=== PATIENT | female | born 1950 | race Asian ===

== ENCOUNTER 2017-08-02 15:20 | Outpatient (RCR) | payer MEDICARE, OTHER ==
[~2017-08-02 15:20] MED LIST: ALLOPURINOL100 MG PO; AMARYL PO; ASPIR-LOW81 MG PO; B-121000 MCG PO; CALCIUM CARBON500 M1 PO; CALCIUM PO; FARXIGA5 PO; FORTAMET1000 MG PO; FOSAMAX PO; GLIMEPRIDE PO; GLUCOPHAGE1000 MG PO; GLUCOTROL 5M5 MG/TAB PO; LEGATRIN PM PO; LIPITOR 40MG TA40 MG PO; LISINOPRIL5 MG PO; NABUMETONE750 MG PO; NEURONTIN100 MG/CAP PO; OMEGA-3 FISH1000 MG PO; OSCAL 500 TAB500 MG PO; OSTEO BI FLEX PO; OSTEO-BI-FLEX 21 TAB PO; PREMPRO 0.625/21 TAB PO; PRILOSEC 20MG20 MG PO; PRILOSEC PO; PRINIVIL10 MG PO; RELAFEN 50500 MG/TAB PO; REQUIP 0.5MG0.5 MG PO; THE MEDICINE S200 M2 PO; TYLENOL ARTHRITIS PO; VICTOZA6 MG/ML SQ; ZOCOR80 MG PO; ZOLOFT100 MG PO; ZYLOPRIM 100MG100 MG PO
== END 2017-10-20 14:44 | disposition home or self-care (01) ==
LOC: WSPT 15:20
DX: H83.92 Unspecified disease of left inner ear (principal); E11.3293 Type 2 diabetes mellitus with mild nonproliferative diabetic retinopathy without macular edema, bilateral
CPT/HCPCS: G8978-GP; G8979-GP

== ENCOUNTER 2019-01-11 15:57 | Emergency (ER) | payer MEDICARE, OTHER ==
[~2019-01-11] VITALS: Ht 157.5 cm; Wt 61.8 kg
[2019-01-11 16:06] VITALS: TEMP 97.7
[2019-01-11 16:41] LABS: BASO % 0.1 % (0.0-2.0); GRAN # 6.4 (1.4-6.5); GRAN % 91.6 % (42.2-75.2); HEMATOCRIT 37.2 % (37.0-47.0); HEMOGLOBIN 12.3 g/dl (12.5-16.0); LYMPH # 0.5 (1.2-3.4); LYMPH % 7.1 % (20.0-51.0); MEAN CELL VOLUME 108 fl (80.0-100.0); MEAN CORPUSCULAR HEMOGLOBIN 36 pg (27.0-31.0); MEAN CORPUSCULAR HGB CONC 33 g/dl (33.0-37.0); MONO % 0.6 % (1.7-9.3); RED BLOOD COUNT 3.46 M/mm3 (4.10-5.30); REDCELL DISTRIBUTION WIDTH-CV 13.2 % (11.5-14.5)
[2019-01-11 16:54] LABS: PLATELET COUNT 44 K/mm3 (130-400)
[2019-01-11 16:59] LABS: ALBUMIN 3.8 gm/dL (3.5-5.0); BILIRUBIN,TOTAL 0.5 mg/dL (0.0-1.0); CALCIUM 8.7 mg/dL (8.4-10.2); CREATININE, serum 0.7 mg/dL (0.52-1.25); POTASSIUM 5.2 mmol/L (3.4-5.0); TOTAL PROTEIN 6.3 gm/dL (6.4-8.2)
[2019-01-11 18:25] LABS: COLLECTION METHOD CLEAN CATCH
[2019-01-11] MEDS ORDERED: JARDIANCE10 (18:29)
[2019-01-11] MEDS ORDERED: TRULICITY0.75 MG/0. SQ (18:29)
[2019-01-11] MEDS ORDERED: AMARYL4 MG PO (18:29)
[2019-01-11] MEDS ORDERED: NORCO 325 MG-51 TAB PO (18:29)
[2019-01-11] MEDS ORDERED: PRILOSEC 20MG20 MG PO (18:30)
[2019-01-11] MEDS ORDERED: MORPHINE 1515 MG/TAB PO (18:30)
[2019-01-11] MEDS ORDERED: OSTEO-BI-FLEX 21 TAB PO (18:30)
[2019-01-11 18:42] LABS: MUCOUS Present /lpf; PH 5 (5-8); SQUAMOUS EPITHELIAL 0-2 /hpf; URINE APPEARANCE Clear; URINE BACTERIA Rare /hpf; URINE BILIRUBIN Negative (NEGATIVE); URINE BLOOD Negative (NEGATIVE); URINE COLOR Yellow; URINE GLUCOSE 3+ (NEGATIVE); URINE KETONE Negative (NEGATIVE); URINE LEUKOCYTE ESTERASE Negative (NEGATIVE); URINE NITRATE Positive (NEGATIVE); URINE PROTEIN(semi-quant) Negative (NEGATIVE); URINE RBC 0-2 /hpf; URINE UROBILINOGEN Negative (NEGATIVE)
[2019-01-11 20:13] VITALS: BP 104/71; PULSE 58
== END 2019-01-11 20:20 | disposition short-term general hospital (02) ==
LOC: COL.ER 15:57
PROVIDERS: Emergency Medicine
DX: R42 Dizziness and giddiness (principal); R03.0 Elevated blood-pressure reading, without diagnosis of hypertension; E11.9 Type 2 diabetes mellitus without complications; C95.90 Leukemia, unspecified not having achieved remission; Z79.84 Long term (current) use of oral hypoglycemic drugs
CPT/HCPCS: J1815; J1885; J7030

== ENCOUNTER 2019-04-13 13:00 | Outpatient (RCR) | payer MEDICARE, OTHER ==
[2019-01-19 09:58] VITALS: BP 102/73; PULSE 84; TEMP 98.2
[2019-01-19 12:12] LABS: HEMATOCRIT 37.9 % (37.0-47.0); MEAN CELL VOLUME 104 fl (80.0-100.0); MEAN CORPUSCULAR HEMOGLOBIN 36 pg (27.0-31.0); MEAN CORPUSCULAR HGB CONC 34 g/dl (33.0-37.0); MEAN PLATELET VOLUME 12.7 fl (7.4-10.4); RED BLOOD COUNT 3.66 M/mm3 (4.10-5.30); REDCELL DISTRIBUTION WIDTH-CV 13.2 % (11.5-14.5)
[2019-01-19 12:13] LABS: PLATELET COUNT 45 K/mm3 (130-400)
[2019-01-19 12:25] VITALS: BP 102/80; PULSE 80
--- NOTE | 2019-01-19 12:35 | NUR ---
Pt kayy PICC placement well. Pt discharged per w/c by nurse.
[2019-01-19 14:35] LABS: BAND 2 % (0-10); LYMPHOCYTE 38 % (20.0-51.0); NEUTROPHILS 57 % (42.0-75.2); PLATELET ESTIMATE DECREASED (NORMAL)
--- NOTE | 2019-01-26 13:10 | NUR ---
Here for cares. with sterile technique [facility] upper arm PICC dressing change done with insertion site cleansed with chloraprep x 1, chlorhexidine impregnated disk applied, skin prep, stat lock, and tegaderm applied. no signs or symptoms of IV complications noted. no concerns voiced. to return next week for cares. voiced understanding of instructions.
[2019-01-26 13:17] LABS: HEMOGLOBIN 12.3 g/dl (12.5-16.0); MEAN CELL VOLUME 104 fl (80.0-100.0); MEAN CORPUSCULAR HEMOGLOBIN 36 pg (27.0-31.0); MEAN CORPUSCULAR HGB CONC 35 g/dl (33.0-37.0); MEAN PLATELET VOLUME 13.2 fl (7.4-10.4); RED BLOOD COUNT 3.44 M/mm3 (4.10-5.30); REDCELL DISTRIBUTION WIDTH-CV 13.3 % (11.5-14.5)
[2019-01-26 13:19] LABS: HEMATOCRIT 35.7 % (37.0-47.0)
[2019-01-26 13:20] LABS: PLATELET COUNT 39 K/mm3 (130-400)
[2019-01-26 13:34] VITALS: BP 86/63; PULSE 77; TEMP 98.3
[2019-01-26 14:09] LABS: BAND 2 % (0-10); EOSINOPHIL 1 % (0-4); LYMPHOCYTE 66 % (20.0-51.0); NEUTROPHILS 27 % (42.0-75.2); NUCLEATED RED BLOOD CELL 1 (0-6)
[2019-01-26 14:10] LABS: PLATELET ESTIMATE DECREASED (NORMAL)
[2019-02-02 13:00] VITALS: BP 80/55; PULSE 48; TEMP 97.7
[2019-02-02 13:21] LABS: HEMOGLOBIN 12.5 g/dl (12.5-16.0); MEAN CELL VOLUME 106 fl (80.0-100.0); MEAN CORPUSCULAR HEMOGLOBIN 36 pg (27.0-31.0); MEAN CORPUSCULAR HGB CONC 34 g/dl (33.0-37.0); MEAN PLATELET VOLUME 13.4 fl (7.4-10.4); PLATELET COUNT 55 K/mm3 (130-400); REDCELL DISTRIBUTION WIDTH-CV 14.3 % (11.5-14.5)
[2019-02-02 13:31] LABS: ALBUMIN 3.9 gm/dL (3.5-5.0); BILIRUBIN,TOTAL 0.4 mg/dL (0.0-1.0); CALCIUM 9.5 mg/dL (8.4-10.2); CREATININE, serum 0.8 (0.52-1.25); POTASSIUM 4.1 mmol/L (3.4-5.0); TOTAL PROTEIN 6.7 gm/dL (6.4-8.2)
[2019-02-02 13:32] VITALS: BP 85/61; PULSE 81
--- NOTE | 2019-02-02 13:35 | NUR ---
Pt sat for 30 min and drank a glass of water. BP rechecked and uncreased to 85/61. Pt denies dizziness while here but said that this morning she was dizzy when she got up.
[2019-02-02 13:40] LABS: LYMPHOCYTE 53 % (20.0-51.0); NEUTROPHILS 42 % (42.0-75.2); PLATELET ESTIMATE DECREASED (NORMAL)
--- NOTE | 2019-02-02 13:45 | NUR ---
Pt discharged per ambulation to car with SBA. Pt denies dizziness. Will see pt in 1 week for PICC care and labs.
--- NOTE | 2019-02-09 13:30 | NUR ---
Here for cares. with sterile technique right upper arm PICC dressing change done with insertion site cleansed with chloraprep x 1, chlorhexidine impregnated disk applied, skin prep, stat lock, and tegaderm applied. patient to return next week for cares. voiced understanding of instructions.
[2019-02-09 13:32] LABS: HEMOGLOBIN 11.6 g/dl (12.5-16.0); MEAN CELL VOLUME 106 fl (80.0-100.0); MEAN CORPUSCULAR HEMOGLOBIN 36 pg (27.0-31.0); MEAN CORPUSCULAR HGB CONC 34 g/dl (33.0-37.0); MEAN PLATELET VOLUME 13.6 fl (7.4-10.4); PLATELET COUNT 69 K/mm3 (130-400); RED BLOOD COUNT 3.27 M/mm3 (4.10-5.30); REDCELL DISTRIBUTION WIDTH-CV 14.3 % (11.5-14.5)
[2019-02-09 13:33] VITALS: BP 89/61; PULSE 68; TEMP 98.3
[2019-02-09 13:44] LABS: ANISOCYTOSIS 1+; LYMPHOCYTE 30 % (20.0-51.0); MYELOCYTE 2 % (0-0); NEUTROPHILS 68 % (42.0-75.2); PLATELET ESTIMATE DECREASED (NORMAL)
[2019-02-09 13:45] LABS: TEAR DROP CELLS 1+
[2019-02-09 13:48] LABS: HEMATOCRIT 34.5 % (37.0-47.0)
--- NOTE | 2019-02-16 12:45 | NUR ---
here for cares. PICC intact right upper arm with sterile dressing change done and insertion site cleansed with ChloraPrep 1, chlorhexidine impregnated disc applied, skin prep, StatLock, and Tegaderm applied. Patient has no signs or symptoms of IV complications noted. No concerns voiced. Patient to return next week for cares. Patient voiced understanding of instructions.
[2019-02-16 13:01] VITALS: BP 87/65; PULSE 104; TEMP 96.7
[2019-02-16 13:43] LABS: HEMOGLOBIN 14.1 g/dl (12.5-16.0); MEAN CELL VOLUME 104 fl (80.0-100.0); MEAN CORPUSCULAR HEMOGLOBIN 36 pg (27.0-31.0); MEAN CORPUSCULAR HGB CONC 34 g/dl (33.0-37.0); MEAN PLATELET VOLUME 13.1 fl (7.4-10.4); PLATELET COUNT 99 K/mm3 (130-400); RED BLOOD COUNT 3.96 M/mm3 (4.10-5.30); REDCELL DISTRIBUTION WIDTH-CV 14.3 % (11.5-14.5)
[2019-02-16 14:36] LABS: EOSINOPHIL 2 % (0-4); LYMPHOCYTE 37 % (20.0-51.0); NEUTROPHILS 61 % (42.0-75.2)
[2019-02-16 14:37] LABS: PLATELET ESTIMATE NORMAL (NORMAL)
--- NOTE | 2019-02-23 12:50 | NUR ---
Here for cares. PICC intact right upper arm with sterile dressing change done with insertion site cleansed with chloraprep x 1, chlorhexidine impregnated disk applied. no signs or symptoms of IV complications noted. no concerns voiced. to return next week for cares. voiced understanding of instructions.
[2019-02-23 13:00] VITALS: BP 91/67; PULSE 106; TEMP 97.9
[2019-02-23 13:08] LABS: HEMOGLOBIN 13.3 g/dl (12.5-16.0); MEAN CELL VOLUME 106 fl (80.0-100.0); MEAN CORPUSCULAR HEMOGLOBIN 36 pg (27.0-31.0); MEAN CORPUSCULAR HGB CONC 34 g/dl (33.0-37.0); PLATELET COUNT 70 K/mm3 (130-400); RED BLOOD COUNT 3.67 M/mm3 (4.10-5.30); REDCELL DISTRIBUTION WIDTH-CV 14.1 % (11.5-14.5)
[2019-02-23 13:17] LABS: ALBUMIN 4.2 gm/dL (3.5-5.0); BILIRUBIN,TOTAL 0.5 mg/dL (0.0-1.0); CREATININE, serum 0.71 (0.52-1.25); POTASSIUM 4.3 mmol/L (3.4-5.0)
[2019-02-23 13:41] LABS: EOSINOPHIL 2 % (0-4); LYMPHOCYTE 36 % (20.0-51.0); NEUTROPHILS 56 % (42.0-75.2)
[2019-02-23 13:42] LABS: PLATELET ESTIMATE DECREASED (NORMAL)
--- NOTE | 2019-03-02 13:00 | NUR ---
PICC intact right upper arm with sterile technique dressing change done with insertion site cleansed with chloraprep x 1, chlorhexidine impgregnated disk applied, skin prep, stat lock, and tegaderm applied. no signs or symptoms of IV complications noted. no concerns voiced. will return next week for cares. voiced understanding of instructions.
[2019-03-02 13:15] VITALS: BP 97/64; PULSE 87; TEMP 98.2
[2019-03-02 13:22] LABS: HEMATOCRIT 37.8 % (37.0-47.0); HEMOGLOBIN 12.5 g/dl (12.5-16.0); MEAN CELL VOLUME 109 fl (80.0-100.0); MEAN CORPUSCULAR HEMOGLOBIN 36 pg (27.0-31.0); MEAN CORPUSCULAR HGB CONC 33 g/dl (33.0-37.0); MEAN PLATELET VOLUME 12.3 fl (7.4-10.4); PLATELET COUNT 68 K/mm3 (130-400); RED BLOOD COUNT 3.47 M/mm3 (4.10-5.30); REDCELL DISTRIBUTION WIDTH-CV 14.6 % (11.5-14.5)
[2019-03-02 13:29] LABS: ALBUMIN 4.1 gm/dL (3.5-5.0); BILIRUBIN,TOTAL 0.5 mg/dL (0.0-1.0); CALCIUM 9.8 mg/dL (8.4-10.2); CREATININE, serum 0.62 (0.52-1.25); POTASSIUM 4.5 mmol/L (3.4-5.0); TOTAL PROTEIN 6.9 gm/dL (6.4-8.2)
[2019-03-02 13:41] LABS: BAND 1 % (0-10); BASOPHIL 1 % (0-2); EOSINOPHIL 1 % (0-4); LYMPHOCYTE 63 % (20.0-51.0); NEUTROPHILS 30 % (42.0-75.2); PLATELET ESTIMATE DECREASED (NORMAL)
[2019-03-02 13:43] LABS: ANISOCYTOSIS 1+
--- NOTE | 2019-03-09 12:45 | NUR ---
Here for cares. with sterile technique right upper arm PICC dressing change done with insertion site cleansed with chloraprep x 1, chlorhexidine impregnated disk, skin prep, stat lock, and tegaderm applied. no signs or symptoms of IV complications noted. no concerns voiced. to return next week for cares. voiced understanding of instructions.
[2019-03-09 12:50] VITALS: BP 102/70; PULSE 76; TEMP 98.5
--- NOTE | 2019-03-09 13:02 | NUR ---
PICC LINE DRESSING CHANGED BY [facility]AMP [place] NURSE, CAPS CHANGED BY MYSELF AFTER LABS OBTAINED. PT AMBLUATED TO EXIT WITHOUT DIFFICULTY.
[2019-03-09 13:09] LABS: HEMATOCRIT 38.4 % (37.0-47.0); HEMOGLOBIN 12.6 g/dl (12.5-16.0); MEAN CELL VOLUME 107 fl (80.0-100.0); MEAN CORPUSCULAR HEMOGLOBIN 35 pg (27.0-31.0); MEAN CORPUSCULAR HGB CONC 33 g/dl (33.0-37.0); MEAN PLATELET VOLUME 13.1 fl (7.4-10.4); PLATELET COUNT 98 K/mm3 (130-400); RED BLOOD COUNT 3.58 M/mm3 (4.10-5.30)
[2019-03-09 13:19] LABS: ALBUMIN 4.1 gm/dL (3.5-5.0); BILIRUBIN,TOTAL 0.5 mg/dL (0.0-1.0); CALCIUM 9.9 mg/dL (8.4-10.2); CREATININE, serum 0.67 (0.52-1.25); TOTAL PROTEIN 6.7 gm/dL (6.4-8.2)
[2019-03-09 13:24] LABS: EOSINOPHIL 1 % (0-4); LYMPHOCYTE 41 % (20.0-51.0); METAMYELOCYTE 1 % (0-0); MYELOCYTE 1 % (0-0); NEUTROPHILS 51 % (42.0-75.2); PLATELET ESTIMATE NORMAL (NORMAL)
[2019-03-09 13:25] LABS: ANISOCYTOSIS 1+
--- NOTE | 2019-03-15 08:30 | NUR ---
patient here for cares. With sterile technique right upper arm PICC dressing change done with insertion site cleansed with ChloraPrep 1, chlorhexidine impregnated disc applied, skin prep, StatLock, and Tegaderm applied. No signs or symptoms of IV complications noted. No concerns voiced. Patient to return next for cares. Patient voiced understanding of instructions.
[2019-03-15 08:32] LABS: HEMATOCRIT 43.9 % (37.0-47.0); HEMOGLOBIN 14.7 g/dl (12.5-16.0); MEAN CELL VOLUME 104 fl (80.0-100.0); MEAN CORPUSCULAR HEMOGLOBIN 35 pg (27.0-31.0); MEAN CORPUSCULAR HGB CONC 34 g/dl (33.0-37.0); MEAN PLATELET VOLUME 12.8 fl (7.4-10.4); PLATELET COUNT 109 K/mm3 (130-400); RED BLOOD COUNT 4.22 M/mm3 (4.10-5.30); REDCELL DISTRIBUTION WIDTH-CV 13.2 % (11.5-14.5)
[2019-03-15 08:39] VITALS: BP 96/75; PULSE 82; TEMP 98.2
[2019-03-15 09:43] LABS: BAND 3 % (0-10); LYMPHOCYTE 45 % (20.0-51.0); NEUTROPHILS 48 % (42.0-75.2)
[2019-03-15 09:44] LABS: PLATELET ESTIMATE DECREASED (NORMAL)
--- NOTE | 2019-03-23 13:10 | NUR ---
here for cares. PICC intact right upper arm with sterile dressing change done. Insertion site cleansed with ChloraPrep 1, chlorhexidine impregnated disc applied, skin prep, StatLock, and Tegaderm applied. No signs or symptoms of IV complications noted. No concerns voiced. Her next week for cares. Patient voiced understanding of instructions.
[2019-03-23 13:11] VITALS: BP 100/71; PULSE 89; TEMP 97.8
[2019-03-23 13:47] LABS: HEMATOCRIT 42.6 % (37.0-47.0); MEAN CELL VOLUME 105 fl (80.0-100.0); MEAN CORPUSCULAR HEMOGLOBIN 35 pg (27.0-31.0); MEAN CORPUSCULAR HGB CONC 33 g/dl (33.0-37.0); PLATELET COUNT 85 K/mm3 (130-400); RED BLOOD COUNT 4.04 M/mm3 (4.10-5.30); REDCELL DISTRIBUTION WIDTH-CV 12.8 % (11.5-14.5)
[2019-03-23 14:23] LABS: EOSINOPHIL 1 % (0-4); LYMPHOCYTE 32 % (20.0-51.0); METAMYELOCYTE 1 % (0-0); NEUTROPHILS 66 % (42.0-75.2); PLATELET ESTIMATE DECREASED (NORMAL)
--- NOTE | 2019-03-30 13:15 | NUR ---
here for cares. With sterile technique right upper arm PICC dressing change done with insertion site cleansed with ChloraPrep 1, chlorhexidine impregnated disc applied, skin prep, StatLock, and Tegaderm applied. No signs or symptoms of IV complications noted. No concerns voiced. Patient to return next week for cares. Patient voiced understanding of instructions.
[2019-03-30 13:29] VITALS: BP 98/73; PULSE 79; TEMP 98
[2019-03-30 13:33] LABS: HEMATOCRIT 42.7 % (37.0-47.0); HEMOGLOBIN 14.6 g/dl (12.5-16.0); MEAN CELL VOLUME 101 fl (80.0-100.0); MEAN CORPUSCULAR HEMOGLOBIN 35 pg (27.0-31.0); MEAN CORPUSCULAR HGB CONC 34 g/dl (33.0-37.0); MEAN PLATELET VOLUME 13.6 fl (7.4-10.4); PLATELET COUNT 75 K/mm3 (130-400); RED BLOOD COUNT 4.21 M/mm3 (4.10-5.30); REDCELL DISTRIBUTION WIDTH-CV 12.6 % (11.5-14.5)
[2019-03-30 13:46] LABS: ALBUMIN 4.1 gm/dL (3.5-5.0); BILIRUBIN,TOTAL 0.7 mg/dL (0.0-1.0); CREATININE, serum 0.59 (0.52-1.25); POTASSIUM 3.9 mmol/L (3.4-5.0); TOTAL PROTEIN 6.9 gm/dL (6.4-8.2)
[2019-03-30 13:54] LABS: EOSINOPHIL 1 % (0-4); LYMPHOCYTE 42 % (20.0-51.0); NEUTROPHILS 52 % (42.0-75.2); PLATELET ESTIMATE DECREASED (NORMAL)
--- NOTE | 2019-04-06 13:00 | NUR ---
PICC intact right upper arm with sterile dressing change done with insertion site cleansed with chloraprep x 1, chlorhexidine impregnated disk, skin prep, stat lock, and tegaderm applied. no signs or symptoms of IV complications noted. no concerns voiced. to return next week for cares. voiced understanding of instructions.
[2019-04-06 13:08] VITALS: BP 90/65; PULSE 85; TEMP 97.5
[2019-04-06 13:08] LABS: HEMATOCRIT 41.9 % (37.0-47.0); HEMOGLOBIN 14.1 g/dl (12.5-16.0); MEAN CELL VOLUME 102 fl (80.0-100.0); MEAN CORPUSCULAR HEMOGLOBIN 34 pg (27.0-31.0); MEAN CORPUSCULAR HGB CONC 34 g/dl (33.0-37.0); MEAN PLATELET VOLUME 13.3 fl (7.4-10.4); PLATELET COUNT 60 K/mm3 (130-400); RED BLOOD COUNT 4.13 M/mm3 (4.10-5.30); REDCELL DISTRIBUTION WIDTH-CV 13.1 % (11.5-14.5)
[2019-04-06 13:18] LABS: LYMPHOCYTE 2 % (20.0-51.0); NEUTROPHILS 96 % (42.0-75.2)
[2019-04-06 13:19] LABS: ANISOCYTOSIS 2+; MICROCYTOSIS 2+; POIKILOCYTOSIS 1+; POLYCHROMASIA 1+
[2019-04-06 13:20] LABS: ALBUMIN 4.1 gm/dL (3.5-5.0); BILIRUBIN,TOTAL 0.8 mg/dL (0.0-1.0); CALCIUM 9.7 mg/dL (8.4-10.2); CREATININE, serum 0.57 (0.52-1.25); PLATELET ESTIMATE NORMAL (NORMAL); TARGET CELLS 1+; TOTAL PROTEIN 6.9 gm/dL (6.4-8.2)
[2019-04-06 13:22] LABS: HYPOCHROMIA 2+
[~2019-04-13] VITALS: Ht 157.5 cm; Wt 64.0 kg
[~2019-04-13 13:00] MED LIST changes: +AMARYL4 MG PO; +GLUCOTROL10 MG PO; +JARDIANCE10 PO; +MORPHINE 1515 MG/TAB PO; +MULTI VITAMINS1 TAB PO; +NORCO 325 MG-51 TAB PO; +TRULICITY0.75 MG/0. SQ; +ZYRTEC 10MG10 MG PO
[2019-04-13 13:45] LABS: HEMATOCRIT 39.5 % (37.0-47.0); HEMOGLOBIN 13.5 g/dl (12.5-16.0); MEAN CELL VOLUME 102 fl (80.0-100.0); MEAN CORPUSCULAR HEMOGLOBIN 35 pg (27.0-31.0); MEAN CORPUSCULAR HGB CONC 34 g/dl (33.0-37.0); MEAN PLATELET VOLUME 12.2 fl (7.4-10.4); PLATELET COUNT 56 K/mm3 (130-400); RED BLOOD COUNT 3.86 M/mm3 (4.10-5.30); REDCELL DISTRIBUTION WIDTH-CV 13.6 % (11.5-14.5)
[2019-04-13 14:05] VITALS: BP 91/68; PULSE 86; TEMP 97.6
[2019-04-13 14:17] LABS: EOSINOPHIL 1 % (0-4); LYMPHOCYTE 57 % (20.0-51.0); NEUTROPHILS 41 % (42.0-75.2); PLATELET ESTIMATE NORMAL (NORMAL)
== END 2019-04-19 | disposition home or self-care (01) ==
LOC: EUO
PROVIDERS: Internal Medicine Medical Oncology
DX: D46.9 Myelodysplastic syndrome, unspecified (principal); D46.21 Refractory anemia with excess of blasts 1; D69.6 Thrombocytopenia, unspecified
CPT/HCPCS: C1751

== ENCOUNTER 2019-07-13 13:00 | Outpatient (RCR) | payer MEDICARE, OTHER ==
[2019-04-20 13:00] VITALS: BP 96/65; PULSE 92; TEMP 98.1
[2019-04-20 14:19] LABS: HEMATOCRIT 41.4 % (37.0-47.0); HEMOGLOBIN 13.7 g/dl (12.5-16.0); MEAN CELL VOLUME 104 fl (80.0-100.0); MEAN CORPUSCULAR HEMOGLOBIN 34 pg (27.0-31.0); MEAN CORPUSCULAR HGB CONC 33 g/dl (33.0-37.0); MEAN PLATELET VOLUME 13.7 fl (7.4-10.4); PLATELET COUNT 67 K/mm3 (130-400); RED BLOOD COUNT 3.99 M/mm3 (4.10-5.30); REDCELL DISTRIBUTION WIDTH-CV 14.1 % (11.5-14.5)
[2019-04-20 15:41] LABS: BAND 2 % (0-10); LYMPHOCYTE 44 % (20.0-51.0); NEUTROPHILS 54 % (42.0-75.2); PLATELET ESTIMATE NORMAL (NORMAL)
[2019-04-26 12:41] VITALS: BP 104/75; PULSE 84; TEMP 97.8
--- NOTE | 2019-04-26 12:50 | NUR ---
here for cares. With sterile technique right upper arm PICC dressing change done with insertion site cleansed with ChloraPrep 1, chlorhexidine impregnated disc applied, skin prep, StatLock, and Tegaderm applied. No signs or symptoms of IV complications noted. No concerns voiced. Patient to return next week for cares. Voiced understanding of instructions.
[2019-04-26 12:53] LABS: HEMATOCRIT 40.1 % (37.0-47.0); HEMOGLOBIN 13.8 g/dl (12.5-16.0); MEAN CELL VOLUME 101 fl (80.0-100.0); MEAN CORPUSCULAR HEMOGLOBIN 35 pg (27.0-31.0); MEAN CORPUSCULAR HGB CONC 34 g/dl (33.0-37.0); MEAN PLATELET VOLUME 12.8 fl (7.4-10.4); PLATELET COUNT 81 K/mm3 (130-400); RED BLOOD COUNT 3.99 M/mm3 (4.10-5.30); REDCELL DISTRIBUTION WIDTH-CV 13.9 % (11.5-14.5)
[2019-04-26 13:55] LABS: BAND 1 % (0-10); LYMPHOCYTE 24 % (20.0-51.0); NEUTROPHILS 74 % (42.0-75.2)
[2019-04-26 13:56] LABS: PLATELET ESTIMATE DECREASED (NORMAL)
--- NOTE | 2019-05-04 13:10 | NUR ---
patient is here for cares. With sterile technique right upper arm PICC dressing change done with insertion site cleansed with ChloraPrep 1, chlorhexidine impregnated disc applied, skin prep, StatLock, and Tegaderm applied. No signs or symptoms of IV complications noted. No concerns voiced. Patient to return next week for cares. Patient voiced understanding of instructions.
[2019-05-04 13:25] LABS: HEMATOCRIT 40.3 % (37.0-47.0); HEMOGLOBIN 13.9 g/dl (12.5-16.0); MEAN CELL VOLUME 100 fl (80.0-100.0); MEAN CORPUSCULAR HEMOGLOBIN 35 pg (27.0-31.0); MEAN CORPUSCULAR HGB CONC 35 g/dl (33.0-37.0); MEAN PLATELET VOLUME 12.5 fl (7.4-10.4); PLATELET COUNT 60 K/mm3 (130-400); RED BLOOD COUNT 4.02 M/mm3 (4.10-5.30); REDCELL DISTRIBUTION WIDTH-CV 13.9 % (11.5-14.5)
[2019-05-04 13:28] VITALS: BP 97/67; PULSE 105; TEMP 97.3
[2019-05-04 13:31] LABS: ALBUMIN 4.1 gm/dL (3.5-5.0); BILIRUBIN,TOTAL 0.5 mg/dL (0.0-1.0); CALCIUM 9.5 mg/dL (8.4-10.2); CREATININE, serum 0.55 (0.52-1.25); POTASSIUM 4.5 mmol/L (3.4-5.0); TOTAL PROTEIN 6.7 gm/dL (6.4-8.2)
[2019-05-04 13:56] LABS: BAND 1 % (0-10); EOSINOPHIL 1 % (0-4); LYMPHOCYTE 50 % (20.0-51.0); NEUTROPHILS 45 % (42.0-75.2); PLATELET ESTIMATE DECREASED (NORMAL)
--- NOTE | 2019-05-11 10:10 | NUR ---
here for cares. With sterile technique right upper arm PICC dressing change done with insertion site cleansed with ChloraPrep 1, chlorhexidine impregnated disc applied, skin prep, StatLock, and Tegaderm applied. Patient is to return next week for cares. patient voiced understanding of instructions. no signs or symptoms of IV complications noted. No concerns voiced.
[2019-05-11 10:21] LABS: HEMATOCRIT 38.3 % (37.0-47.0); HEMOGLOBIN 13.2 g/dl (12.5-16.0); MEAN CELL VOLUME 100 fl (80.0-100.0); MEAN CORPUSCULAR HEMOGLOBIN 35 pg (27.0-31.0); MEAN CORPUSCULAR HGB CONC 35 g/dl (33.0-37.0); MEAN PLATELET VOLUME 12.5 fl (7.4-10.4); PLATELET COUNT 66 K/mm3 (130-400); RED BLOOD COUNT 3.82 M/mm3 (4.10-5.30); REDCELL DISTRIBUTION WIDTH-CV 14.2 % (11.5-14.5)
[2019-05-11 10:30] LABS: ALBUMIN 4.1 gm/dL (3.5-5.0); BILIRUBIN,TOTAL 0.5 mg/dL (0.0-1.0); CALCIUM 9.9 mg/dL (8.4-10.2); CREATININE, serum 0.56 (0.52-1.25); POTASSIUM 4.3 mmol/L (3.4-5.0); TOTAL PROTEIN 6.7 gm/dL (6.4-8.2)
[2019-05-11 11:16] VITALS: BP 125/73; PULSE 92; TEMP 97.2
[2019-05-11 11:59] LABS: BAND 2 % (0-10); BASOPHIL 1 % (0-2); EOSINOPHIL 4 % (0-4); LYMPHOCYTE 53 % (20.0-51.0); NEUTROPHILS 40 % (42.0-75.2); OVALOCYTES 1+; PLATELET ESTIMATE DECREASED (NORMAL)
[2019-05-11 12:00] LABS: ANISOCYTOSIS 1+; HYPOCHROMIA 1+
[2019-05-18 13:16] LABS: HEMATOCRIT 37.8 % (37.0-47.0); HEMOGLOBIN 12.9 g/dl (12.5-16.0); MEAN CELL VOLUME 99 fl (80.0-100.0); MEAN CORPUSCULAR HEMOGLOBIN 34 pg (27.0-31.0); MEAN CORPUSCULAR HGB CONC 34 g/dl (33.0-37.0); MEAN PLATELET VOLUME 11.9 fl (7.4-10.4); PLATELET COUNT 98 K/mm3 (130-400); RED BLOOD COUNT 3.81 M/mm3 (4.10-5.30); REDCELL DISTRIBUTION WIDTH-CV 14.2 % (11.5-14.5)
[2019-05-18 13:37] LABS: LYMPHOCYTE 45 % (20.0-51.0); NEUTROPHILS 52 % (42.0-75.2); PLATELET ESTIMATE DECREASED (NORMAL)
[2019-05-18 13:55] VITALS: BP 90/55; PULSE 90; TEMP 97.5
--- NOTE | 2019-05-25 13:00 | NUR ---
patient here for cares. PICC intact right upper arm. With sterile technique right upper arm PICC dressing change done with insertion site cleansed with ChloraPrep 1, chlorhexidine impregnated disc applied, skin prep, StatLock, and Tegaderm applied. No signs or symptoms of IV complications noted. No concerns voiced. Patient to return next week for cares. Patient voiced understanding of instructions.
[2019-05-25 13:14] VITALS: BP 108/73; PULSE 88; TEMP 98.1
[2019-05-25 13:34] LABS: HEMATOCRIT 38.3 % (37.0-47.0); HEMOGLOBIN 13.2 g/dl (12.5-16.0); MEAN CELL VOLUME 98 fl (80.0-100.0); MEAN CORPUSCULAR HEMOGLOBIN 34 pg (27.0-31.0); MEAN CORPUSCULAR HGB CONC 35 g/dl (33.0-37.0); MEAN PLATELET VOLUME 12.6 fl (7.4-10.4); PLATELET COUNT 118 K/mm3 (130-400); RED BLOOD COUNT 3.91 M/mm3 (4.10-5.30); REDCELL DISTRIBUTION WIDTH-CV 13.8 % (11.5-14.5)
[2019-05-25 13:59] LABS: EOSINOPHIL 1 % (0-4); LYMPHOCYTE 28 % (20.0-51.0); NEUTROPHILS 66 % (42.0-75.2)
[2019-05-25 14:00] LABS: PLATELET ESTIMATE DECREASED (NORMAL)
[2019-06-01 13:13] VITALS: BP 91/65; PULSE 89; TEMP 97.5
[2019-06-01 13:23] LABS: HEMATOCRIT 37.5 % (37.0-47.0); HEMOGLOBIN 12.8 g/dl (12.5-16.0); MEAN CELL VOLUME 100 fl (80.0-100.0); MEAN CORPUSCULAR HEMOGLOBIN 34 pg (27.0-31.0); MEAN CORPUSCULAR HGB CONC 34 g/dl (33.0-37.0); MEAN PLATELET VOLUME 13.3 fl (7.4-10.4); PLATELET COUNT 78 K/mm3 (130-400); RED BLOOD COUNT 3.76 M/mm3 (4.10-5.30); REDCELL DISTRIBUTION WIDTH-CV 13.8 % (11.5-14.5)
[2019-06-01 13:55] LABS: ANISOCYTOSIS 1+; BAND 3 % (0-10); EOSINOPHIL 2 % (0-4); LYMPHOCYTE 42 % (20.0-51.0); MICROCYTOSIS 1+; NEUTROPHILS 50 % (42.0-75.2); OVALOCYTES 1+; PLATELET ESTIMATE DECREASED (NORMAL); TEAR DROP CELLS 1+
[2019-06-01 13:56] LABS: SPHEROCYTE 1+
[2019-06-08 12:59] VITALS: BP 93/67; PULSE 86; TEMP 97.9
[2019-06-08 13:02] LABS: HEMOGLOBIN 12.6 g/dl (12.5-16.0); MEAN CELL VOLUME 99 fl (80.0-100.0); MEAN CORPUSCULAR HEMOGLOBIN 34 pg (27.0-31.0); MEAN CORPUSCULAR HGB CONC 35 g/dl (33.0-37.0); MEAN PLATELET VOLUME 11.7 fl (7.4-10.4); PLATELET COUNT 75 K/mm3 (130-400); RED BLOOD COUNT 3.69 M/mm3 (4.10-5.30); REDCELL DISTRIBUTION WIDTH-CV 14.5 % (11.5-14.5)
[2019-06-08 13:03] LABS: HEMATOCRIT 36.5 % (37.0-47.0)
[2019-06-08 13:51] LABS: LYMPHOCYTE 42 % (20.0-51.0); NEUTROPHILS 57 % (42.0-75.2); PLATELET ESTIMATE DECREASED (NORMAL)
--- NOTE | 2019-06-15 13:00 | NUR ---
here for cares. With sterile technique right upper arm PICC dressing change done with insertion site cleansed with ChloraPrep times 1, Chlorhexidine impregnated disc applied, skin prep, StatLock, and Tegaderm applied. No signs or symptoms of IV complications noted. No concerns voiced. Patient to return next week for cares. Patient voiced understanding of instructions.
[2019-06-15 13:08] VITALS: BP 108/77; PULSE 86; TEMP 97.4
[2019-06-15 13:23] LABS: HEMATOCRIT 39.4 % (37.0-47.0); HEMOGLOBIN 13.1 g/dl (12.5-16.0); MEAN CELL VOLUME 101 fl (80.0-100.0); MEAN CORPUSCULAR HEMOGLOBIN 34 pg (27.0-31.0); MEAN CORPUSCULAR HGB CONC 33 g/dl (33.0-37.0); MEAN PLATELET VOLUME 12.9 fl (7.4-10.4); PLATELET COUNT 101 K/mm3 (130-400); RED BLOOD COUNT 3.91 M/mm3 (4.10-5.30); REDCELL DISTRIBUTION WIDTH-CV 14.5 % (11.5-14.5)
[2019-06-15 13:30] LABS: ALBUMIN 4.3 gm/dL (3.5-5.0); BILIRUBIN,TOTAL 0.4 mg/dL (0.0-1.0); CALCIUM 9.4 mg/dL (8.4-10.2); CREATININE, serum 0.58 (0.52-1.25); POTASSIUM 3.9 mmol/L (3.4-5.0); TOTAL PROTEIN 6.9 gm/dL (6.4-8.2)
[2019-06-15 14:48] LABS: BAND 1 % (0-10); LYMPHOCYTE 36 % (20.0-51.0); NEUTROPHILS 62 % (42.0-75.2); PLATELET ESTIMATE NORMAL (NORMAL)
[2019-06-22 11:15] VITALS: BP 100/75; PULSE 103; TEMP 98
--- NOTE | 2019-06-22 11:15 | NUR ---
Here for care. PICC intact right upper arm with sterile dressing change done with insertion site cleansed with chloraprep x 1, chlorhexidine impregnated disk, skin prep, and tegaderm applied. no signs or symptoms of IV complications noted. no concerns voiced. to continue with cares in EU next week. voiced understanding of instructions.
[2019-06-22 11:19] LABS: HEMATOCRIT 42.4 % (37.0-47.0); HEMOGLOBIN 14.6 g/dl (12.5-16.0); MEAN CELL VOLUME 99 fl (80.0-100.0); MEAN CORPUSCULAR HEMOGLOBIN 34 pg (27.0-31.0); MEAN CORPUSCULAR HGB CONC 34 g/dl (33.0-37.0); MEAN PLATELET VOLUME 13.1 fl (7.4-10.4); PLATELET COUNT 124 K/mm3 (130-400); RED BLOOD COUNT 4.29 M/mm3 (4.10-5.30); REDCELL DISTRIBUTION WIDTH-CV 14.4 % (11.5-14.5)
[2019-06-22 11:48] LABS: LYMPHOCYTE 34 % (20.0-51.0); NEUTROPHILS 66 % (42.0-75.2); PLATELET ESTIMATE DECREASED (NORMAL)
--- NOTE | 2019-06-29 13:00 | NUR ---
Here for cares. PICC intact right upper arm with sterile dressing change done with insertion site cleansed with chloraprep x 1, chlorhexidine impregnated disk applied, skin prep, stat lock, and tegaderm applied. no signs or symptoms of IV complications noted. no concerns voiced. to return next week for cares. voiced understanding of instructions.
[2019-06-29 13:23] LABS: HEMATOCRIT 38.8 % (37.0-47.0); HEMOGLOBIN 13.2 g/dl (12.5-16.0); MEAN CELL VOLUME 102 fl (80.0-100.0); MEAN CORPUSCULAR HEMOGLOBIN 35 pg (27.0-31.0); MEAN CORPUSCULAR HGB CONC 34 g/dl (33.0-37.0); MEAN PLATELET VOLUME 12.8 fl (7.4-10.4); PLATELET COUNT 91 K/mm3 (130-400); RED BLOOD COUNT 3.82 M/mm3 (4.10-5.30); REDCELL DISTRIBUTION WIDTH-CV 14.6 % (11.5-14.5)
[2019-06-29 13:48] LABS: EOSINOPHIL 1 % (0-4); LYMPHOCYTE 38 % (20.0-51.0); NEUTROPHILS 57 % (42.0-75.2); PLATELET ESTIMATE DECREASED (NORMAL)
[2019-07-06 13:10] LABS: HEMATOCRIT 38.3 % (37.0-47.0); HEMOGLOBIN 12.9 g/dl (12.5-16.0); MEAN CELL VOLUME 102 fl (80.0-100.0); MEAN CORPUSCULAR HEMOGLOBIN 35 pg (27.0-31.0); MEAN CORPUSCULAR HGB CONC 34 g/dl (33.0-37.0); MEAN PLATELET VOLUME 12.7 fl (7.4-10.4); PLATELET COUNT 74 K/mm3 (130-400); RED BLOOD COUNT 3.74 M/mm3 (4.10-5.30); REDCELL DISTRIBUTION WIDTH-CV 14.6 % (11.5-14.5)
[2019-07-06 13:18] VITALS: BP 98/76; PULSE 85; TEMP 97.5
[2019-07-06 14:20] LABS: BAND 3 % (0-10); BASOPHIL 1 % (0-2); EOSINOPHIL 2 % (0-4); HYPOCHROMIA 1+; LYMPHOCYTE 52 % (20.0-51.0); NEUTROPHILS 37 % (42.0-75.2); PLATELET ESTIMATE DECREASED (NORMAL)
[~2019-07-13] VITALS: Ht 157.5 cm; Wt 64.0 kg
[~2019-07-13 13:00] MED LIST changes: +CYMBALTA 30MG30 MG PO; +LANTUS100 U/ML SQ; -TRULICITY0.75 MG/0. SQ; +TRULICITY1.5 MG/0.5 SQ
[2019-07-13 13:14] VITALS: BP 105/72; PULSE 84; TEMP 98.2
[2019-07-13 13:15] LABS: HEMOGLOBIN 12.1 g/dl (12.5-16.0); MEAN CELL VOLUME 103 fl (80.0-100.0); MEAN CORPUSCULAR HEMOGLOBIN 35 pg (27.0-31.0); MEAN CORPUSCULAR HGB CONC 34 g/dl (33.0-37.0); MEAN PLATELET VOLUME 12.6 fl (7.4-10.4); PLATELET COUNT 69 K/mm3 (130-400); RED BLOOD COUNT 3.48 M/mm3 (4.10-5.30); REDCELL DISTRIBUTION WIDTH-CV 13.8 % (11.5-14.5)
[2019-07-13 13:27] LABS: ALBUMIN 4.1 gm/dL (3.5-5.0); BILIRUBIN,TOTAL 0.5 mg/dL (0.0-1.0); CALCIUM 9.5 mg/dL (8.4-10.2); CREATININE, serum 0.68 (0.52-1.25); POTASSIUM 4.9 mmol/L (3.4-5.0); TOTAL PROTEIN 6.5 gm/dL (6.4-8.2)
[2019-07-13 13:39] LABS: HEMATOCRIT 35.9 % (37.0-47.0)
--- NOTE | 2019-07-13 13:45 | NUR ---
here for cares. With sterile technique right upper arm PICC dressing change done with insertion site cleansed with ChloraPrep 1, chlorhexidine impregnated disc applied, skin prep, StatLock, and Tegaderm applied. No signs or symptoms of IV complications noted. No concerns voiced. Patient return next week for cares. Patient voiced understanding of instructions.
[2019-07-13 13:56] LABS: BASOPHIL 5 % (0-2); LYMPHOCYTE 41 % (20.0-51.0); NEUTROPHILS 54 % (42.0-75.2)
[2019-07-13 13:57] LABS: PLATELET ESTIMATE DECREASED (NORMAL)
== END 2019-07-19 | disposition home or self-care (01) ==
LOC: EUO
PROVIDERS: Internal Medicine Medical Oncology
DX: D46.21 Refractory anemia with excess of blasts 1 (principal); D69.6 Thrombocytopenia, unspecified

== ENCOUNTER 2019-10-12 11:00 | Outpatient (RCR) | payer MEDICARE, OTHER ==
--- NOTE | 2019-07-20 13:00 | NUR ---
Here for care. with sterile technique right upper arm PICC dressing change done with insertion site cleansed with chloraprep x 1, chlorhexidine impregnated disk applied, skin prep, stat lock, and tegaderm applied. no signs or symptoms of IV complications noted. no concerns voiced. to return next week for cares. voiced understanding of instructions.
[2019-07-20 13:53] VITALS: BP 141/58; PULSE 72; TEMP 98.3
[2019-07-20 14:04] LABS: HEMATOCRIT 37.3 % (37.0-47.0); HEMOGLOBIN 12.5 g/dl (12.5-16.0); MEAN CELL VOLUME 103 fl (80.0-100.0); MEAN CORPUSCULAR HEMOGLOBIN 35 pg (27.0-31.0); MEAN CORPUSCULAR HGB CONC 34 g/dl (33.0-37.0); MEAN PLATELET VOLUME 12.8 fl (7.4-10.4); PLATELET COUNT 98 K/mm3 (130-400); RED BLOOD COUNT 3.62 M/mm3 (4.10-5.30); REDCELL DISTRIBUTION WIDTH-CV 13.4 % (11.5-14.5)
[2019-07-20 14:18] LABS: EOSINOPHIL 1 % (0-4); LYMPHOCYTE 43 % (20.0-51.0); NEUTROPHILS 49 % (42.0-75.2)
[2019-07-20 14:19] LABS: PLATELET ESTIMATE DECREASED (NORMAL)
[2019-07-27 13:50] VITALS: BP 105/66; PULSE 86; TEMP 98.2
[2019-07-27 14:01] LABS: HEMOGLOBIN 12.1 g/dl (12.5-16.0); MEAN CELL VOLUME 102 fl (80.0-100.0); MEAN CORPUSCULAR HEMOGLOBIN 34 pg (27.0-31.0); MEAN CORPUSCULAR HGB CONC 34 g/dl (33.0-37.0); MEAN PLATELET VOLUME 12.7 fl (7.4-10.4); PLATELET COUNT 95 K/mm3 (130-400); RED BLOOD COUNT 3.52 M/mm3 (4.10-5.30); REDCELL DISTRIBUTION WIDTH-CV 12.9 % (11.5-14.5)
[2019-07-27 15:01] LABS: LYMPHOCYTE 35 % (20.0-51.0); NEUTROPHILS 64 % (42.0-75.2)
[2019-07-27 15:03] LABS: PLATELET ESTIMATE NORMAL (NORMAL)
--- NOTE | 2019-08-03 13:10 | NUR ---
PICC intact right upper arm with sterile dressing change done with insertion site cleansed with chloraprep x 1, chlorhexidine impregnated disk applied, skin prep, stat lock, and tegaderm applied. no signs or symptoms of IV complications noted. no concerns voiced. to return next week for cares. voiced understanding of instructions.
[2019-08-03 13:16] VITALS: BP 115/78; PULSE 100; TEMP 97.6
[2019-08-03 13:26] LABS: HEMATOCRIT 40.1 % (37.0-47.0); HEMOGLOBIN 13.5 g/dl (12.5-16.0); MEAN CELL VOLUME 102 fl (80.0-100.0); MEAN CORPUSCULAR HEMOGLOBIN 34 pg (27.0-31.0); MEAN CORPUSCULAR HGB CONC 34 g/dl (33.0-37.0); PLATELET COUNT 77 K/mm3 (130-400); RED BLOOD COUNT 3.93 M/mm3 (4.10-5.30); REDCELL DISTRIBUTION WIDTH-CV 13.2 % (11.5-14.5)
[2019-08-03 14:05] LABS: BAND 1 % (0-10); EOSINOPHIL 2 % (0-4); METAMYELOCYTE 1 % (0-0); NEUTROPHILS 61 % (42.0-75.2)
[2019-08-03 14:07] LABS: LYMPHOCYTE 33 % (20.0-51.0); PLATELET ESTIMATE DECREASED (NORMAL)
[2019-08-03 14:09] LABS: TEAR DROP CELLS 1+
[2019-08-10 14:02] VITALS: BP 88/67; PULSE 96
[2019-08-10 14:12] LABS: HEMOGLOBIN 11.1 g/dl (12.5-16.0); MEAN CELL VOLUME 103 fl (80.0-100.0); MEAN CORPUSCULAR HEMOGLOBIN 35 pg (27.0-31.0); MEAN CORPUSCULAR HGB CONC 34 g/dl (33.0-37.0); MEAN PLATELET VOLUME 11.8 fl (7.4-10.4); RED BLOOD COUNT 3.16 M/mm3 (4.10-5.30); REDCELL DISTRIBUTION WIDTH-CV 13.2 % (11.5-14.5)
[2019-08-10 14:22] LABS: HEMATOCRIT 32.6 % (37.0-47.0)
[2019-08-10 14:23] LABS: PLATELET COUNT 49 K/mm3 (130-400)
[2019-08-10 15:58] LABS: BAND 3 % (0-10); LYMPHOCYTE 64 % (20.0-51.0); METAMYELOCYTE 2 % (0-0); NEUTROPHILS 29 % (42.0-75.2); PLATELET ESTIMATE DECREASED (NORMAL)
[2019-08-17 10:00] VITALS: BP 113/77; PULSE 100; TEMP 97.4
--- NOTE | 2019-08-17 10:00 | NUR ---
PICC intact right upper arm with sterile dressing change done with insertion site cleansed with chloraprep x 1, chlorhexidine impregnated disk, skin prep, stat lock, and tegaderm applied. no signs or symptoms of IV complications noted. no concerns voiced. patient to return next week for cares. voiced understanding of instructions.
[2019-08-17 10:20] LABS: HEMOGLOBIN 12.3 g/dl (12.5-16.0); MEAN CELL VOLUME 102 fl (80.0-100.0); MEAN CORPUSCULAR HEMOGLOBIN 35 pg (27.0-31.0); MEAN CORPUSCULAR HGB CONC 34 g/dl (33.0-37.0); MEAN PLATELET VOLUME 11.3 fl (7.4-10.4); PLATELET COUNT 80 K/mm3 (130-400); RED BLOOD COUNT 3.54 M/mm3 (4.10-5.30); REDCELL DISTRIBUTION WIDTH-CV 13.4 % (11.5-14.5)
[2019-08-17 10:22] LABS: HEMATOCRIT 36.1 % (37.0-47.0)
[2019-08-17 10:31] LABS: ALBUMIN 4.1 gm/dL (3.5-5.0); BILIRUBIN,TOTAL 0.3 mg/dL (0.0-1.0); CALCIUM 9.3 mg/dL (8.4-10.2); CREATININE, serum 0.62 (0.52-1.25); POTASSIUM 4.5 mmol/L (3.4-5.0); TOTAL PROTEIN 6.7 gm/dL (6.4-8.2); URIC ACID 7.9 mg/dL (2.5-6.2)
--- NOTE | 2019-08-24 13:00 | NUR ---
here for cares. With sterile technique right upper arm PICC dressing change done with insertion site cleansed with ChloraPrep 1, chlorhexidine impregnated disc applied, skin prep, StatLock, and Tegaderm applied. No signs or symptoms of IV complications noted. No concerns voiced. Arm wrapped with [place] to protect catheter. Patient to return next week for cares. Patient voiced understanding of instructions.
[2019-08-24 13:02] LABS: HEMOGLOBIN 11.7 g/dl (12.5-16.0); MEAN CELL VOLUME 100 fl (80.0-100.0); MEAN CORPUSCULAR HEMOGLOBIN 35 pg (27.0-31.0); MEAN CORPUSCULAR HGB CONC 35 g/dl (33.0-37.0); MEAN PLATELET VOLUME 11.7 fl (7.4-10.4); PLATELET COUNT 71 K/mm3 (130-400); RED BLOOD COUNT 3.38 M/mm3 (4.10-5.30); REDCELL DISTRIBUTION WIDTH-CV 13.9 % (11.5-14.5)
[2019-08-24 13:04] LABS: HEMATOCRIT 33.9 % (37.0-47.0)
[2019-08-24 13:22] LABS: ALBUMIN 4.3 gm/dL (3.5-5.0); BILIRUBIN,TOTAL 0.7 mg/dL (0.0-1.0); CALCIUM 9.6 mg/dL (8.4-10.2); CREATININE, serum 0.68 (0.52-1.25); POTASSIUM 3.9 mmol/L (3.4-5.0); TOTAL PROTEIN 6.8 gm/dL (6.4-8.2)
[2019-08-24 13:31] VITALS: BP 100/66; PULSE 78; TEMP 97.9
[2019-08-31 13:09] LABS: HEMOGLOBIN 12.7 g/dl (12.5-16.0); MEAN CELL VOLUME 100 fl (80.0-100.0); MEAN CORPUSCULAR HEMOGLOBIN 34 pg (27.0-31.0); MEAN CORPUSCULAR HGB CONC 35 g/dl (33.0-37.0); MEAN PLATELET VOLUME 11.6 fl (7.4-10.4); PLATELET COUNT 80 K/mm3 (130-400); RED BLOOD COUNT 3.69 M/mm3 (4.10-5.30); REDCELL DISTRIBUTION WIDTH-CV 13.8 % (11.5-14.5)
[2019-08-31 13:11] LABS: HEMATOCRIT 36.7 % (37.0-47.0)
[2019-08-31 13:18] LABS: BILIRUBIN,TOTAL 0.6 mg/dL (0.0-1.0); CALCIUM 9.2 mg/dL (8.4-10.2); CREATININE, serum 0.55 (0.52-1.25); POTASSIUM 3.9 mmol/L (3.4-5.0); TOTAL PROTEIN 6.3 gm/dL (6.4-8.2)
[2019-08-31 13:19] LABS: BAND 3 % (0-10); LYMPHOCYTE 49 % (20.0-51.0); NEUTROPHILS 41 % (42.0-75.2); NUCLEATED RED BLOOD CELL 2 (0-6); OVALOCYTES 2+; PLATELET ESTIMATE DECREASED (NORMAL)
[2019-08-31 13:20] LABS: BURR CELLS 1+
[2019-08-31 13:53] VITALS: BP 93/50; PULSE 97; TEMP 97.6
[2019-09-07 11:22] VITALS: BP 128/81; PULSE 87; TEMP 97.4
[2019-09-07 11:22] LABS: HEMOGLOBIN 12.3 g/dl (12.5-16.0); MEAN CELL VOLUME 99 fl (80.0-100.0); MEAN CORPUSCULAR HEMOGLOBIN 35 pg (27.0-31.0); MEAN CORPUSCULAR HGB CONC 35 g/dl (33.0-37.0); PLATELET COUNT 97 K/mm3 (130-400); RED BLOOD COUNT 3.54 M/mm3 (4.10-5.30); REDCELL DISTRIBUTION WIDTH-CV 14.1 % (11.5-14.5)
[2019-09-07 11:23] LABS: ALBUMIN 4.1 gm/dL (3.5-5.0); BILIRUBIN,TOTAL 0.4 mg/dL (0.0-1.0); CALCIUM 9.2 mg/dL (8.4-10.2); CREATININE, serum 0.53 (0.52-1.25); POTASSIUM 4.1 mmol/L (3.4-5.0); TOTAL PROTEIN 6.7 gm/dL (6.4-8.2); URIC ACID 5.8 mg/dL (2.5-6.2)
[2019-09-07 12:11] LABS: BAND 4 % (0-10); LYMPHOCYTE 39 % (20.0-51.0); NEUTROPHILS 49 % (42.0-75.2); PLATELET ESTIMATE DECREASED (NORMAL); SCHISTOCYTES 1+; TARGET CELLS 1+
[2019-09-14 13:14] VITALS: BP 107/66; PULSE 100; TEMP 97.4
[2019-09-14 13:22] LABS: HEMATOCRIT 38.4 % (37.0-47.0); HEMOGLOBIN 13.3 g/dl (12.5-16.0); MEAN CELL VOLUME 99 fl (80.0-100.0); MEAN CORPUSCULAR HEMOGLOBIN 34 pg (27.0-31.0); MEAN CORPUSCULAR HGB CONC 35 g/dl (33.0-37.0); MEAN PLATELET VOLUME 11.9 fl (7.4-10.4); PLATELET COUNT 159 K/mm3 (130-400); RED BLOOD COUNT 3.88 M/mm3 (4.10-5.30); REDCELL DISTRIBUTION WIDTH-CV 13.7 % (11.5-14.5)
[2019-09-14 13:27] LABS: ALBUMIN 4.3 gm/dL (3.5-5.0); BILIRUBIN,TOTAL 0.6 mg/dL (0.0-1.0); CREATININE, serum 0.78 (0.52-1.25); POTASSIUM 4.1 mmol/L (3.4-5.0)
[2019-09-14 13:59] LABS: BAND 2 % (0-10); BASOPHIL 1 % (0-2); LYMPHOCYTE 47 % (20.0-51.0); NEUTROPHILS 47 % (42.0-75.2); PLATELET ESTIMATE NORMAL (NORMAL)
[2019-09-19 10:29] VITALS: BP 105/77; PULSE 92; TEMP 98.1
[2019-09-19 10:30] LABS: HEMATOCRIT 37.4 % (37.0-47.0); HEMOGLOBIN 12.8 g/dl (12.5-16.0); MEAN CELL VOLUME 99 fl (80.0-100.0); MEAN CORPUSCULAR HEMOGLOBIN 34 pg (27.0-31.0); MEAN CORPUSCULAR HGB CONC 34 g/dl (33.0-37.0); MEAN PLATELET VOLUME 12.3 fl (7.4-10.4); PLATELET COUNT 206 K/mm3 (130-400); RED BLOOD COUNT 3.78 M/mm3 (4.10-5.30); REDCELL DISTRIBUTION WIDTH-CV 13.3 % (11.5-14.5)
[2019-09-19 10:46] LABS: ALBUMIN 4.2 gm/dL (3.5-5.0); BILIRUBIN,TOTAL 0.6 mg/dL (0.0-1.0); CREATININE, serum 0.64 (0.52-1.25); POTASSIUM 4.4 mmol/L (3.4-5.0); TOTAL PROTEIN 6.9 gm/dL (6.4-8.2)
[2019-09-19 11:09] LABS: BAND 5 % (0-10); BASOPHIL 2 % (0-2); LYMPHOCYTE 42 % (20.0-51.0); NEUTROPHILS 46 % (42.0-75.2); PLATELET ESTIMATE NORMAL (NORMAL)
--- NOTE | 2019-09-28 11:45 | NUR ---
Here for cares. with sterile technique right upper arm PICC dressing change done with insertion site cleansed with chloraprep x 1, chlohexidine impregnated disk, skin prep, stat lock, and tegaderm applied. no signs or symptoms of IV complications noted. no concerns voiced. to return next week for cares. voiced understanding of instructions.
[2019-09-28 12:00] LABS: HEMATOCRIT 38.2 % (37.0-47.0); HEMOGLOBIN 12.9 g/dl (12.5-16.0); MEAN CELL VOLUME 98 fl (80.0-100.0); MEAN CORPUSCULAR HEMOGLOBIN 33 pg (27.0-31.0); MEAN CORPUSCULAR HGB CONC 34 g/dl (33.0-37.0); MEAN PLATELET VOLUME 12.4 fl (7.4-10.4); PLATELET COUNT 253 K/mm3 (130-400); RED BLOOD COUNT 3.91 M/mm3 (4.10-5.30); REDCELL DISTRIBUTION WIDTH-CV 13.1 % (11.5-14.5)
[2019-09-28 12:02] VITALS: BP 113/78; PULSE 78; TEMP 97.7
[2019-09-28 13:27] LABS: BAND 4 % (0-10); LYMPHOCYTE 20 % (20.0-51.0); METAMYELOCYTE 1 % (0-0); NEUTROPHILS 66 % (42.0-75.2)
[2019-09-28 13:28] LABS: PLATELET ESTIMATE NORMAL (NORMAL)
[2019-10-05 13:16] LABS: HEMATOCRIT 40.3 % (37.0-47.0); HEMOGLOBIN 13.8 g/dl (12.5-16.0); MEAN CELL VOLUME 97 fl (80.0-100.0); MEAN CORPUSCULAR HEMOGLOBIN 33 pg (27.0-31.0); MEAN CORPUSCULAR HGB CONC 34 g/dl (33.0-37.0); MEAN PLATELET VOLUME 12.9 fl (7.4-10.4); PLATELET COUNT 133 K/mm3 (130-400); RED BLOOD COUNT 4.16 M/mm3 (4.10-5.30); REDCELL DISTRIBUTION WIDTH-CV 13.2 % (11.5-14.5)
[2019-10-05 13:35] LABS: BAND 2 % (0-10); LYMPHOCYTE 25 % (20.0-51.0); NEUTROPHILS 72 % (42.0-75.2); PLATELET ESTIMATE NORMAL (NORMAL)
[2019-10-05 13:43] VITALS: BP 113/78; BP 88/66; PULSE 43; PULSE 78; TEMP 97.5; TEMP 97.7
[~2019-10-12] VITALS: Ht 157.5 cm; Wt 65.3 kg
[~2019-10-12 11:00] MED LIST changes: +PEPCID 20MG TAB20 MG PO
--- NOTE | 2019-10-12 11:00 | NUR ---
Here for cares. with sterile technique right upper arm PICC dressing change done with insertion site cleansed with chloraprep x 1, chlorhexidine impregnated disk applied, skin prep, stat lock, and tegaderm applied. no signs or symptoms of IV complications noted. no concerns voiced. to return next week for cares. voiced understanding of instructions.
[2019-10-12 11:15] VITALS: BP 107/77; PULSE 96; TEMP 97.8
[2019-10-12 11:37] LABS: ALBUMIN 4.2 gm/dL (3.5-5.0); BILIRUBIN,TOTAL 0.5 mg/dL (0.0-1.0); CALCIUM 9.3 mg/dL (8.4-10.2); CREATININE, serum 0.67 (0.52-1.25); POTASSIUM 4.5 mmol/L (3.4-5.0); TOTAL PROTEIN 6.9 gm/dL (6.4-8.2)
[2019-10-12 16:08] LABS: BASO % 0.3 % (0.0-2.0); EOS % 0.3 % (0-4.0); GRAN # 1.8 (1.4-6.5); GRAN % 56.8 % (42.2-75.2); HEMOGLOBIN 11.5 g/dl (12.5-16.0); LYMPH # 1.1 (1.2-3.4); LYMPH % 34.5 % (20.0-51.0); MEAN CELL VOLUME 99 fl (80.0-100.0); MEAN CORPUSCULAR HEMOGLOBIN 33 pg (27.0-31.0); MEAN CORPUSCULAR HGB CONC 33 g/dl (33.0-37.0); MEAN PLATELET VOLUME 13.1 fl (7.4-10.4); MONO # 0.2 (0.1-0.6); MONO % 7.5 % (1.7-9.3); PLATELET COUNT 50 K/mm3 (130-400); RED BLOOD COUNT 3.51 M/mm3 (4.10-5.30); REDCELL DISTRIBUTION WIDTH-CV 14.1 % (11.5-14.5)
[2019-10-12 16:09] LABS: HEMATOCRIT 34.6 % (37.0-47.0)
== END 2019-10-18 | disposition home or self-care (01) ==
LOC: EUO
PROVIDERS: Internal Medicine; Internal Medicine Medical Oncology
DX: D46.21 Refractory anemia with excess of blasts 1 (principal); D69.6 Thrombocytopenia, unspecified

== ENCOUNTER 2019-10-19 12:54 | Outpatient (RCR) | payer MEDICARE, OTHER ==
[~2019-10-19] VITALS: Ht 157.5 cm; Wt 66.6 kg
[2019-10-19 13:17] LABS: HEMOGLOBIN 11.4 g/dl (12.5-16.0); MEAN CELL VOLUME 97 fl (80.0-100.0); MEAN CORPUSCULAR HEMOGLOBIN 33 pg (27.0-31.0); MEAN CORPUSCULAR HGB CONC 34 g/dl (33.0-37.0); PLATELET COUNT 108 K/mm3 (130-400); RED BLOOD COUNT 3.44 M/mm3 (4.10-5.30); REDCELL DISTRIBUTION WIDTH-CV 14.5 % (11.5-14.5)
[2019-10-19 13:20] LABS: HEMATOCRIT 33.5 % (37.0-47.0)
[2019-10-19 13:34] VITALS: BP 93/64; PULSE 90; TEMP 97.8
[2019-10-19 13:36] LABS: BAND 4 % (0-10); LYMPHOCYTE 71 % (20.0-51.0); NEUTROPHILS 22 % (42.0-75.2); PLATELET ESTIMATE DECREASED (NORMAL)
[2019-10-19 13:37] LABS: OVALOCYTES 1+
== END 2019-10-19 13:35 | disposition home or self-care (01) ==
LOC: EUO 12:54
PROVIDERS: Internal Medicine Medical Oncology
DX: D46.21 Refractory anemia with excess of blasts 1 (principal); D69.6 Thrombocytopenia, unspecified

== ENCOUNTER 2020-03-04 08:23 | Emergency (ER) | payer MEDICARE, OTHER ==
[~2020-03-04] VITALS: Ht 157.5 cm; Wt 62.7 kg
[2020-03-04 08:30] VITALS: TEMP 97.9
[2020-03-04 08:43] LABS: BASO % 0.5 % (0.0-2.0); EOS % 0.3 % (0-4.0); GRAN % 61.6 % (42.2-75.2); HEMOGLOBIN 13.3 g/dl (12.5-16.0); LYMPH # 1.9 (1.2-3.4); MEAN CELL VOLUME 99 fl (80.0-100.0); MEAN CORPUSCULAR HEMOGLOBIN 33 pg (27.0-31.0); MEAN CORPUSCULAR HGB CONC 33 g/dl (33.0-37.0); MONO # 0.5 (0.1-0.6); MONO % 7.4 % (1.7-9.3); PLATELET COUNT 159 K/mm3 (130-400); RED BLOOD COUNT 4.05 M/mm3 (4.10-5.30); REDCELL DISTRIBUTION WIDTH-CV 17.1 % (11.5-14.5)
[2020-03-04 08:54] LABS: ALANINE AMINOTRANSFERASE 37 U/L (4-34); ALBUMIN 4.1 gm/dL (3.5-5.0); ALKALINE PHOSPHATASE 60 U/L (50-136); ANION GAP 11 mmol/L (7-16); AST,SGOT 30 U/L (15-37); BILIRUBIN,TOTAL 0.7 mg/dL (0.0-1.0); BLOOD UREA NITROGEN 24 mg/dL (7-17); CALCIUM 9.8 mg/dL (8.4-10.2); CARBON DIOXIDE 22 mmol/L (22-30); CHLORIDE 101 mmol/L (98-107); CREATININE, serum 0.68 (0.52-1.25); GLUCOSE 253 mg/dL (74-106); LIPASE 167 U/L (23-300); POTASSIUM 4.3 mmol/L (3.4-5.0); SODIUM 134 mmol/L (137-145); TOTAL PROTEIN 6.8 gm/dL (6.4-8.2)
[2020-03-04 09:07] LABS: TROPONIN-I < 0.012 ng/mL (0.000-0.035)
[2020-03-04 10:44] LABS: COLLECTION METHOD CLEAN CATCH
[2020-03-04 11:43] LABS: MUCOUS Present /lpf; PH 5 (5-8); URINE APPEARANCE Clear; URINE BACTERIA None Seen /hpf; URINE BILIRUBIN Negative (NEGATIVE); URINE BLOOD Negative (NEGATIVE); URINE COLOR Yellow; URINE GLUCOSE Negative (NEGATIVE); URINE KETONE Negative (NEGATIVE); URINE LEUKOCYTE ESTERASE Negative (NEGATIVE); URINE NITRATE Negative (NEGATIVE); URINE PROTEIN(semi-quant) Negative (NEGATIVE); URINE RBC 0-2 /hpf; URINE UROBILINOGEN Negative (NEGATIVE)
[2020-03-04] MEDS ORDERED: LIDODERM 5% PATC1 EA TP (13:16)
[2020-03-04] MEDS ORDERED: CEFTIN500 MG PO (13:22)
[2020-03-04 13:27] VITALS: BP 107/73; PULSE 101
== END 2020-03-04 13:33 | disposition home or self-care (01) ==
LOC: COL.ER 08:23
PROVIDERS: Emergency Medicine
DX: R07.89 Other chest pain (principal); C95.90 Leukemia, unspecified not having achieved remission; Z90.89 Acquired absence of other organs; Z79.84 Long term (current) use of oral hypoglycemic drugs
CPT/HCPCS: J7030; Q9967

== ENCOUNTER 2020-04-23 11:00 | Outpatient (RCR) | payer MEDICARE, OTHER ==
--- NOTE | 2020-01-29 15:35 | NUR ---
CALLED PT FOR INFECTIOUS DISEASE SCREENING. I LEFT A VM ASKING HER TO CALL IF SHE HAS DEVELOPED ANY NEW SX CONCERNING FOR VIRAL INFECTION.
[2020-01-30 11:05] VITALS: BP 95/66; PULSE 85; TEMP 98.3
[2020-01-30 11:10] LABS: MEAN CELL VOLUME 96 fl (80.0-100.0); MEAN CORPUSCULAR HEMOGLOBIN 33 pg (27.0-31.0); MEAN CORPUSCULAR HGB CONC 34 g/dl (33.0-37.0); MEAN PLATELET VOLUME 12.3 fl (7.4-10.4); PLATELET COUNT 114 K/mm3 (130-400); RED BLOOD COUNT 3.68 M/mm3 (4.10-5.30); REDCELL DISTRIBUTION WIDTH-CV 14.6 % (11.5-14.5)
[2020-01-30 11:16] LABS: HEMATOCRIT 35.2 % (37.0-47.0)
[2020-01-30 11:39] LABS: BAND 3 % (0-10); EOSINOPHIL 1 % (0-4); LYMPHOCYTE 30 % (20.0-51.0); METAMYELOCYTE 1 % (0-0); MYELOCYTE 1 % (0-0); NEUTROPHILS 53 % (42.0-75.2); OVALOCYTES 1+; PLATELET ESTIMATE DECREASED (NORMAL); SCHISTOCYTES 1+
--- NOTE | 2020-02-06 10:45 | NUR ---
Here for cares. with sterile technique right upper arm PICC dressing change done with insertion site cleansed with chloraprep x 1, chlorhexidine impregnate disk applied, skin prep, stat lock, and tegaderm applied. instructed to return next week for cares. voiced understanding of instructions.
[2020-02-06 11:06] VITALS: BP 83/67; PULSE 104; TEMP 97.4
[2020-02-06 11:14] LABS: HEMOGLOBIN 12.6 g/dl (12.5-16.0); MEAN CELL VOLUME 96 fl (80.0-100.0); MEAN CORPUSCULAR HEMOGLOBIN 33 pg (27.0-31.0); MEAN CORPUSCULAR HGB CONC 34 g/dl (33.0-37.0); PLATELET COUNT 91 K/mm3 (130-400); RED BLOOD COUNT 3.82 M/mm3 (4.10-5.30); REDCELL DISTRIBUTION WIDTH-CV 15.3 % (11.5-14.5)
[2020-02-06 11:16] LABS: HEMATOCRIT 36.6 % (37.0-47.0)
[2020-02-06 13:04] LABS: ANISOCYTOSIS 1+; LYMPHOCYTE 40 % (20.0-51.0); NEUTROPHILS 58 % (42.0-75.2); PLATELET ESTIMATE DECREASED (NORMAL)
--- NOTE | 2020-02-12 12:25 | NUR ---
LEFT MESSAGE IN REGARDS TO S/S.
--- NOTE | 2020-02-13 11:00 | NUR ---
Here for cares. with sterile technique right upper arm PICC dressing change done with insertion site cleansed with chloraprep x 1, chlorhexidine impregmate disk applied, skin prep, stat lock, and tegaderm applied. no signs or symptoms of IV complications noted. no concerns voiced. to return next week for cares. voiced understanding of instructions.
[2020-02-13 11:09] VITALS: BP 111/79; PULSE 84; TEMP 97.3
[2020-02-13 11:11] LABS: HEMOGLOBIN 11.5 g/dl (12.5-16.0); MEAN CELL VOLUME 97 fl (80.0-100.0); MEAN CORPUSCULAR HEMOGLOBIN 33 pg (27.0-31.0); MEAN CORPUSCULAR HGB CONC 34 g/dl (33.0-37.0); MEAN PLATELET VOLUME 12.5 fl (7.4-10.4); PLATELET COUNT 65 K/mm3 (130-400); REDCELL DISTRIBUTION WIDTH-CV 16.5 % (11.5-14.5)
[2020-02-13 11:17] LABS: ALBUMIN 4.2 gm/dL (3.5-5.0); BILIRUBIN,TOTAL 0.5 mg/dL (0.0-1.0); CALCIUM 9.9 mg/dL (8.4-10.2); CREATININE, serum 0.54 (0.52-1.25); POTASSIUM 4.2 mmol/L (3.4-5.0)
[2020-02-13 11:39] LABS: BAND 5 % (0-10); BASOPHIL 2 % (0-2); EOSINOPHIL 7 % (0-4); LYMPHOCYTE 34 % (20.0-51.0); NEUTROPHILS 48 % (42.0-75.2); PLATELET ESTIMATE DECREASED (NORMAL)
[2020-02-13 11:40] LABS: OVALOCYTES 1+; TEAR DROP CELLS 1+
[2020-02-20 11:03] VITALS: BP 108/75; PULSE 83; TEMP 98.2
[2020-02-20 11:33] LABS: HEMOGLOBIN 10.9 g/dl (12.5-16.0); MEAN CELL VOLUME 98 fl (80.0-100.0); MEAN CORPUSCULAR HEMOGLOBIN 33 pg (27.0-31.0); MEAN CORPUSCULAR HGB CONC 34 g/dl (33.0-37.0); MEAN PLATELET VOLUME 11.8 fl (7.4-10.4); PLATELET COUNT 109 K/mm3 (130-400); RED BLOOD COUNT 3.31 M/mm3 (4.10-5.30); REDCELL DISTRIBUTION WIDTH-CV 17.5 % (11.5-14.5)
[2020-02-20 11:40] LABS: HEMATOCRIT 32.3 % (37.0-47.0)
[2020-02-20 12:17] LABS: BAND 2 % (0-10); BASOPHIL 1 % (0-2); EOSINOPHIL 3 % (0-4); LYMPHOCYTE 56 % (20.0-51.0); NEUTROPHILS 37 % (42.0-75.2); OVALOCYTES 2+; PLATELET ESTIMATE DECREASED (NORMAL)
[2020-02-20 12:18] LABS: SCHISTOCYTES 1+; TEAR DROP CELLS 1+
--- NOTE | 2020-02-27 10:50 | NUR ---
Here for cares. with sterile technique right upper arm PICC dressing change done with insertion site cleansed with chloraprep x 1, chlorhexidine impreganted disk applied, skin prep, stat lock, and tegaderm applied. no signs or symptoms of IV complications noted. no concerns voiced. to return next week for cares. voiced understanding of instructions.
[2020-02-27 11:16] LABS: HEMATOCRIT 32.5 % (37.0-47.0); MEAN CELL VOLUME 98 fl (80.0-100.0); MEAN CORPUSCULAR HEMOGLOBIN 33 pg (27.0-31.0); MEAN CORPUSCULAR HGB CONC 34 g/dl (33.0-37.0); MEAN PLATELET VOLUME 11.8 fl (7.4-10.4); PLATELET COUNT 168 K/mm3 (130-400); RED BLOOD COUNT 3.31 M/mm3 (4.10-5.30); REDCELL DISTRIBUTION WIDTH-CV 17.4 % (11.5-14.5)
[2020-02-27 11:23] VITALS: BP 129/76; PULSE 84; TEMP 98.1
[2020-02-27 12:04] LABS: BAND 4 % (0-10); LYMPHOCYTE 35 % (20.0-51.0); METAMYELOCYTE 1 % (0-0); NEUTROPHILS 54 % (42.0-75.2); NUCLEATED RED BLOOD CELL 1 (0-6); PLATELET ESTIMATE NORMAL (NORMAL)
[2020-03-05 11:00] VITALS: BP 98/73; PULSE 103; TEMP 98.4
[2020-03-05 11:18] LABS: HEMATOCRIT 35.4 % (37.0-47.0); HEMOGLOBIN 12.1 g/dl (12.5-16.0); MEAN CELL VOLUME 98 fl (80.0-100.0); MEAN CORPUSCULAR HEMOGLOBIN 34 pg (27.0-31.0); MEAN CORPUSCULAR HGB CONC 34 g/dl (33.0-37.0); MEAN PLATELET VOLUME 13.2 fl (7.4-10.4); PLATELET COUNT 105 K/mm3 (130-400)
[2020-03-05 12:51] LABS: BAND 6 % (0-10); EOSINOPHIL 1 % (0-4); LYMPHOCYTE 46 % (20.0-51.0); NEUTROPHILS 41 % (42.0-75.2); NUCLEATED RED BLOOD CELL 1 (0-6)
[2020-03-05 12:52] LABS: PLATELET ESTIMATE DECREASED (NORMAL)
[2020-03-05 12:54] LABS: ANISOCYTOSIS 1+; SCHISTOCYTES 1+
[2020-03-05 13:01] LABS: OVALOCYTES 1+
--- NOTE | 2020-03-11 18:11 | NUR ---
LEFT MESSAGE TO RETURN PHONE CALL IN REGARDS TO ID SCREENING
--- NOTE | 2020-03-12 10:50 | NUR ---
PICC intact right upper arm with sterile dressing change done with insertion site cleansed with chloraprep x 1, chlorhexidine impreganted disk applied, skin prep, stat lock, and tegaderm applied. no signs or symptoms of IV complications noted. no concerns voiced. to return next week for cares. voiced understanding of instructions.
[2020-03-12 10:57] LABS: MEAN CELL VOLUME 101 fl (80.0-100.0); MEAN CORPUSCULAR HEMOGLOBIN 34 pg (27.0-31.0); MEAN CORPUSCULAR HGB CONC 34 g/dl (33.0-37.0); MEAN PLATELET VOLUME 12.7 fl (7.4-10.4); PLATELET COUNT 82 K/mm3 (130-400); REDCELL DISTRIBUTION WIDTH-CV 17.2 % (11.5-14.5)
[2020-03-12 10:58] VITALS: BP 126/75; PULSE 103; TEMP 98
[2020-03-12 10:58] LABS: HEMATOCRIT 35.3 % (37.0-47.0)
[2020-03-12 11:08] LABS: ALBUMIN 4.3 gm/dL (3.5-5.0); BILIRUBIN,TOTAL 0.6 mg/dL (0.0-1.0); CALCIUM 10.1 mg/dL (8.4-10.2); CREATININE, serum 0.65 (0.52-1.25); POTASSIUM 5.1 mmol/L (3.4-5.0)
[2020-03-12 12:15] LABS: BAND 1 % (0-10); EOSINOPHIL 1 % (0-4); LYMPHOCYTE 62 % (20.0-51.0); NEUTROPHILS 33 % (42.0-75.2)
[2020-03-12 12:16] LABS: ANISOCYTOSIS 1+; OVALOCYTES 1+; PLATELET ESTIMATE DECREASED (NORMAL); SCHISTOCYTES 1+; TEAR DROP CELLS 1+
[2020-03-19 10:53] LABS: HEMOGLOBIN 11.4 g/dl (12.5-16.0); MEAN CELL VOLUME 102 fl (80.0-100.0); MEAN CORPUSCULAR HEMOGLOBIN 34 pg (27.0-31.0); MEAN CORPUSCULAR HGB CONC 34 g/dl (33.0-37.0); MEAN PLATELET VOLUME 10.7 fl (7.4-10.4); PLATELET COUNT 123 K/mm3 (130-400); RED BLOOD COUNT 3.35 M/mm3 (4.10-5.30); REDCELL DISTRIBUTION WIDTH-CV 16.1 % (11.5-14.5)
[2020-03-19 10:58] LABS: ALBUMIN 4.1 gm/dL (3.5-5.0); BILIRUBIN,TOTAL 0.5 mg/dL (0.0-1.0); CALCIUM 9.8 mg/dL (8.4-10.2); CREATININE, serum 0.59 (0.52-1.25); POTASSIUM 4.5 mmol/L (3.4-5.0)
[2020-03-19 11:07] VITALS: BP 102/77; PULSE 82; TEMP 98.4
[2020-03-19 12:13] LABS: ANISOCYTOSIS 1+; BAND 6 % (0-10); BASOPHIL 2 % (0-2); LYMPHOCYTE 65 % (20.0-51.0); NEUTROPHILS 25 % (42.0-75.2); PLATELET ESTIMATE DECREASED (NORMAL)
[2020-03-19 12:14] LABS: OVALOCYTES 1+; SCHISTOCYTES 1+; TEAR DROP CELLS 1+
[2020-03-26 11:30] VITALS: BP 104/89; PULSE 80; TEMP 98.5
[2020-03-26 12:11] LABS: HEMOGLOBIN 11.3 g/dl (12.5-16.0); MEAN CELL VOLUME 101 fl (80.0-100.0); MEAN CORPUSCULAR HEMOGLOBIN 35 pg (27.0-31.0); MEAN CORPUSCULAR HGB CONC 34 g/dl (33.0-37.0); MEAN PLATELET VOLUME 12.1 fl (7.4-10.4); PLATELET COUNT 174 K/mm3 (130-400); RED BLOOD COUNT 3.27 M/mm3 (4.10-5.30); REDCELL DISTRIBUTION WIDTH-CV 15.3 % (11.5-14.5)
[2020-03-26 12:27] LABS: HEMATOCRIT 33.1 % (37.0-47.0)
[2020-03-26 12:33] LABS: BAND 4 % (0-10); BASOPHIL 1 % (0-2); LYMPHOCYTE 58 % (20.0-51.0); NEUTROPHILS 24 % (42.0-75.2); OVALOCYTES 1+; PLATELET ESTIMATE NORMAL (NORMAL)
[2020-03-26 12:34] LABS: TEAR DROP CELLS 1+
--- NOTE | 2020-04-02 10:45 | NUR ---
here for cares. With sterile technique right upper arm PICC dressing change done with insertion site cleansed with ChloraPrep 1, chlorhexidine impregnated disc applied, skin prep, StatLock, and Tegaderm applied. No signs or symptoms of IV complications noted. No concerns voiced. Patient continue next week with cares. Patient voiced understanding of instructions.
[2020-04-02 11:20] LABS: HEMATOCRIT 37.4 % (37.0-47.0); HEMOGLOBIN 12.8 g/dl (12.5-16.0); MEAN CELL VOLUME 101 fl (80.0-100.0); MEAN CORPUSCULAR HEMOGLOBIN 35 pg (27.0-31.0); MEAN CORPUSCULAR HGB CONC 34 g/dl (33.0-37.0); PLATELET COUNT 91 K/mm3 (130-400); RED BLOOD COUNT 3.69 M/mm3 (4.10-5.30); REDCELL DISTRIBUTION WIDTH-CV 15.1 % (11.5-14.5)
[2020-04-02 11:33] VITALS: BP 89/60; PULSE 66; TEMP 99
[2020-04-02 12:36] LABS: LYMPHOCYTE 31 % (20.0-51.0); METAMYELOCYTE 1 % (0-0); NEUTROPHILS 65 % (42.0-75.2); PLATELET ESTIMATE DECREASED (NORMAL)
[2020-04-02 12:37] LABS: TEAR DROP CELLS 1+
[2020-04-02 12:38] LABS: OVALOCYTES 1+
[2020-04-09 10:59] VITALS: BP 109/81; PULSE 91; TEMP 97.9
--- NOTE | 2020-04-09 11:00 | NUR ---
Here for cares. with sterile technique right upper arm PICC dressing change done with insertion site cleansed with chloraprep x 1, chlorhexidine impregnated disk applied, skin prep, stat lock, and tegaderm applied. no signs or symptoms of IV complications noted. no concerns voiced. to continue with cares in EU. voiced understanding of instructions.
[2020-04-09 11:19] LABS: HEMOGLOBIN 11.5 g/dl (12.5-16.0); MEAN CELL VOLUME 101 fl (80.0-100.0); MEAN CORPUSCULAR HEMOGLOBIN 34 pg (27.0-31.0); MEAN CORPUSCULAR HGB CONC 34 g/dl (33.0-37.0); MEAN PLATELET VOLUME 11.5 fl (7.4-10.4); PLATELET COUNT 58 K/mm3 (130-400); RED BLOOD COUNT 3.34 M/mm3 (4.10-5.30)
[2020-04-09 11:27] LABS: ALBUMIN 4.2 gm/dL (3.5-5.0); BILIRUBIN,TOTAL 0.5 mg/dL (0.0-1.0); CALCIUM 9.9 mg/dL (8.4-10.2); CREATININE, serum 0.56 (0.52-1.25); POTASSIUM 4.5 mmol/L (3.4-5.0)
[2020-04-09 12:01] LABS: HEMATOCRIT 33.6 % (37.0-47.0)
[2020-04-09 13:23] LABS: BAND 6 % (0-10); LYMPHOCYTE 66 % (20.0-51.0); NEUTROPHILS 24 % (42.0-75.2)
[2020-04-09 13:26] LABS: SCHISTOCYTES 1+
[2020-04-09 13:27] LABS: PLATELET ESTIMATE DECREASED (NORMAL)
[2020-04-16 10:47] VITALS: BP 93/67; PULSE 97; TEMP 97.7
[2020-04-16 11:20] LABS: HEMOGLOBIN 12.2 g/dl (12.5-16.0); MEAN CELL VOLUME 100 fl (80.0-100.0); MEAN CORPUSCULAR HEMOGLOBIN 34 pg (27.0-31.0); MEAN CORPUSCULAR HGB CONC 34 g/dl (33.0-37.0); MEAN PLATELET VOLUME 11.4 fl (7.4-10.4); PLATELET COUNT 116 K/mm3 (130-400); RED BLOOD COUNT 3.58 M/mm3 (4.10-5.30); REDCELL DISTRIBUTION WIDTH-CV 14.6 % (11.5-14.5)
[2020-04-16 11:23] LABS: HEMATOCRIT 35.7 % (37.0-47.0)
[2020-04-16 12:24] LABS: BAND 8 % (0-10); BASOPHIL 3 % (0-2); MYELOCYTE 2 % (0-0); NEUTROPHILS 29 % (42.0-75.2)
[2020-04-16 12:25] LABS: PLATELET ESTIMATE DECREASED (NORMAL)
[2020-04-16 12:27] LABS: LYMPHOCYTE 50 % (20.0-51.0)
[2020-04-16 12:28] LABS: ANISOCYTOSIS 1+; SCHISTOCYTES 1+
[~2020-04-23] VITALS: Ht 157.5 cm; Wt 65.6 kg
[~2020-04-23 11:00] MED LIST changes: +CEFTIN500 MG PO; +LIDODERM 5% PATC1 EA TP; -NEURONTIN100 MG/CAP PO; +NEURONTIN300 MG/CAP PO
--- NOTE | 2020-04-23 11:00 | NUR ---
Here for cares. with sterile technique right upper arm PICC dressing change done with insertion site cleansed with chloraprep x 1, chlorhexidine impregnated disk applied. no signs or symptoms of IV complications noted. no concerns voiced. to return next week for cares. voiced understanding of instructions.
[2020-04-23 11:10] VITALS: BP 114/75; PULSE 67; TEMP 98.5
[2020-04-23 11:18] LABS: HEMOGLOBIN 11.6 g/dl (12.5-16.0); MEAN CELL VOLUME 100 fl (80.0-100.0); MEAN CORPUSCULAR HEMOGLOBIN 34 pg (27.0-31.0); MEAN CORPUSCULAR HGB CONC 34 g/dl (33.0-37.0); MEAN PLATELET VOLUME 11.7 fl (7.4-10.4); PLATELET COUNT 167 K/mm3 (130-400); RED BLOOD COUNT 3.42 M/mm3 (4.10-5.30); REDCELL DISTRIBUTION WIDTH-CV 14.4 % (11.5-14.5)
[2020-04-23 11:30] LABS: BAND 3 % (0-10); HEMATOCRIT 34.2 % (37.0-47.0); LYMPHOCYTE 51 % (20.0-51.0); METAMYELOCYTE 3 % (0-0); NEUTROPHILS 37 % (42.0-75.2); NUCLEATED RED BLOOD CELL 1 (0-6); OVALOCYTES 2+; PLATELET ESTIMATE NORMAL (NORMAL)
== END 2020-04-29 | disposition home or self-care (01) ==
LOC: EUO
PROVIDERS: Internal Medicine; Internal Medicine Medical Oncology
DX: D46.21 Refractory anemia with excess of blasts 1 (principal); D69.6 Thrombocytopenia, unspecified

== ENCOUNTER 2020-06-17 10:27 | Emergency (ER) | payer MEDICARE, OTHER ==
[~2020-06-17] VITALS: Ht 160 cm; Wt 66.4 kg
[2020-06-17 10:32] VITALS: BP 103/74; TEMP 98.1
[2020-06-17 11:11] LABS: MEAN CELL VOLUME 98 fl (80.0-100.0); MEAN CORPUSCULAR HEMOGLOBIN 33 pg (27.0-31.0); MEAN CORPUSCULAR HGB CONC 34 g/dl (33.0-37.0); MEAN PLATELET VOLUME 11.7 fl (7.4-10.4); PLATELET COUNT 170 K/mm3 (130-400); RED BLOOD COUNT 3.59 M/mm3 (4.10-5.30); REDCELL DISTRIBUTION WIDTH-CV 14.8 % (11.5-14.5)
[2020-06-17 11:17] LABS: PROTHROMBIN TIME 11.2 SECONDS (9.7-12.8)
[2020-06-17 11:19] LABS: PARTIAL THROMBOPLASTIN TIME 40.9 SECONDS (26.0-37.0)
[2020-06-17 11:20] LABS: ALBUMIN 4.3 gm/dL (3.5-5.0); BILIRUBIN,TOTAL 0.7 mg/dL (0.0-1.0); CALCIUM 9.7 mg/dL (8.4-10.2); CREATININE, serum 0.63 (0.52-1.25); POTASSIUM 4.4 mmol/L (3.4-5.0); TOTAL PROTEIN 7.2 gm/dL (6.4-8.2)
[2020-06-17 13:54] LABS: BAND 14 % (0-10); EOSINOPHIL 2 % (0-4); METAMYELOCYTE 3 % (0-0); NEUTROPHILS 34 % (42.0-75.2); PLATELET ESTIMATE NORMAL (NORMAL)
[2020-06-17 13:55] LABS: LYMPHOCYTE 41 % (20.0-51.0)
[2020-06-17 13:58] LABS: ANISOCYTOSIS 1+; OVALOCYTES 1+; SCHISTOCYTES 1+
[2020-06-17 14:38] VITALS: PULSE 57
== END 2020-06-17 13:37 | disposition home or self-care (01) ==
LOC: COL.ER 10:27
PROVIDERS: Emergency Medicine
DX: S16.1XXA Strain of muscle, fascia and tendon at neck level, initial encounter (principal); S00.93XA Contusion of unspecified part of head, initial encounter; S70.02XA Contusion of left hip, initial encounter; R40.2412 Glasgow coma scale score 13-15, at arrival to emergency department; W06.XXXA Fall from bed, initial encounter; Y92.009 Unspecified place in unspecified non-institutional (private) residence as the place of occurrence of the external cause
CPT/HCPCS: J1815; J3010; J7040

== ENCOUNTER 2020-07-13 13:41 | Emergency (ER) | payer MEDICARE, OTHER ==
[~2020-07-13] VITALS: Ht 157.5 cm; Wt 66.4 kg
[2020-07-13 13:46] VITALS: BP 104/73; PULSE 89; TEMP 98.2
== END 2020-07-13 15:40 | disposition home or self-care (01) ==
LOC: COL.ER 13:41
DX: S93.402A Sprain of unspecified ligament of left ankle, initial encounter (principal); Z85.6 Personal history of leukemia; Z79.4 Long term (current) use of insulin; X50.1XXA Overexertion from prolonged static or awkward postures, initial encounter

== ENCOUNTER 2020-07-16 11:07 | Emergency (ER) | payer MEDICARE, OTHER ==
[~2020-07-16] VITALS: Ht 157.5 cm; Wt 66.4 kg
[2020-07-16 11:34] VITALS: TEMP 98.2
[2020-07-16 13:46] LABS: C-REACTIVE PROTEIN 6.9 mg/dL (0.0-0.9); URIC ACID 5.3 mg/dL (2.5-6.2)
[2020-07-16] MEDS ORDERED: MOBIC 7.5MG7.5 MG PO (14:58)
[2020-07-16 15:38] VITALS: BP 91/56; PULSE 88
== END 2020-07-16 15:39 | disposition home or self-care (01) ==
LOC: COL.ER 11:07
PROVIDERS: Nurse Practitioner Primary Care
DX: M25.572 Pain in left ankle and joints of left foot (principal); E11.9 Type 2 diabetes mellitus without complications; M10.9 Gout, unspecified; Z79.4 Long term (current) use of insulin
CPT/HCPCS: J1885

== ENCOUNTER 2020-07-23 11:00 | Outpatient (RCR) | payer MEDICARE, OTHER ==
--- NOTE | 2020-04-30 10:45 | NUR ---
Here for cares. PICC intact right upper with sterile dressing change done with insertion site cleansed with chloraprep x 1, chlorhexidine impregnated disk applied, skin prep, stat lock, and tegaderm applied. no signs or symptoms of IV complications noted. no concerns voiced. to return next week for cares. voiced understanding of instructions.
[2020-04-30 11:18] LABS: HEMATOCRIT 39.5 % (37.0-47.0); HEMOGLOBIN 13.3 g/dl (12.5-16.0); MEAN CELL VOLUME 100 fl (80.0-100.0); MEAN CORPUSCULAR HEMOGLOBIN 34 pg (27.0-31.0); MEAN CORPUSCULAR HGB CONC 34 g/dl (33.0-37.0); MEAN PLATELET VOLUME 13.6 fl (7.4-10.4); PLATELET COUNT 97 K/mm3 (130-400); RED BLOOD COUNT 3.97 M/mm3 (4.10-5.30); REDCELL DISTRIBUTION WIDTH-CV 14.6 % (11.5-14.5)
[2020-04-30 11:20] VITALS: BP 80/69; PULSE 115; TEMP 98
[2020-04-30 12:58] LABS: BAND 4 % (0-10); EOSINOPHIL 1 % (0-4); LYMPHOCYTE 27 % (20.0-51.0); NEUTROPHILS 63 % (42.0-75.2); OVALOCYTES 1+; PLATELET ESTIMATE DECREASED (NORMAL); POIKILOCYTOSIS 1+
[2020-05-07 10:40] VITALS: BP 93/64; PULSE 106; TEMP 97.6
[2020-05-07 11:01] LABS: ALBUMIN 4.2 gm/dL (3.5-5.0); BILIRUBIN,TOTAL 0.5 mg/dL (0.0-1.0); CALCIUM 9.5 mg/dL (8.4-10.2); CREATININE, serum 0.76 (0.52-1.25); POTASSIUM 4.6 mmol/L (3.4-5.0)
[2020-05-07 11:02] LABS: HEMOGLOBIN 12.1 g/dl (12.5-16.0); MEAN CELL VOLUME 99 fl (80.0-100.0); MEAN CORPUSCULAR HEMOGLOBIN 34 pg (27.0-31.0); MEAN CORPUSCULAR HGB CONC 34 g/dl (33.0-37.0); MEAN PLATELET VOLUME 12.7 fl (7.4-10.4); PLATELET COUNT 61 K/mm3 (130-400); RED BLOOD COUNT 3.56 M/mm3 (4.10-5.30); REDCELL DISTRIBUTION WIDTH-CV 14.8 % (11.5-14.5)
[2020-05-07 11:03] LABS: HEMATOCRIT 35.3 % (37.0-47.0)
[2020-05-07 11:21] LABS: LYMPHOCYTE 59 % (20.0-51.0); NEUTROPHILS 38 % (42.0-75.2); PLATELET ESTIMATE DECREASED (NORMAL)
[2020-05-07 11:22] LABS: OVALOCYTES 1+; TEAR DROP CELLS 1+
[2020-05-07 11:23] LABS: ANISOCYTOSIS 1+
[2020-05-14 08:06] VITALS: BP 106/73; PULSE 94; TEMP 98.5
[2020-05-14 09:16] LABS: HEMOGLOBIN 11.7 g/dl (12.5-16.0); MEAN CELL VOLUME 99 fl (80.0-100.0); MEAN CORPUSCULAR HEMOGLOBIN 33 pg (27.0-31.0); MEAN CORPUSCULAR HGB CONC 34 g/dl (33.0-37.0); PLATELET COUNT 108 K/mm3 (130-400); REDCELL DISTRIBUTION WIDTH-CV 14.9 % (11.5-14.5)
[2020-05-14 09:18] LABS: CHOLESTEROL RISK RATIO 3.1; HEMATOCRIT 34.5 % (37.0-47.0)
[2020-05-14 09:46] LABS: TSH w REFLEX 0.074 uIU/mL (0.465-4.680)
[2020-05-14 10:33] LABS: BAND 3 % (0-10); BASOPHIL 2 % (0-2); LYMPHOCYTE 69 % (20.0-51.0); METAMYELOCYTE 1 % (0-0); NEUTROPHILS 24 % (42.0-75.2); PLATELET ESTIMATE DECREASED (NORMAL)
[2020-05-21 10:16] VITALS: BP 99/74; PULSE 87; TEMP 98.2
[2020-05-21 10:32] LABS: MEAN CELL VOLUME 98 fl (80.0-100.0); MEAN CORPUSCULAR HEMOGLOBIN 34 pg (27.0-31.0); MEAN CORPUSCULAR HGB CONC 35 g/dl (33.0-37.0); MEAN PLATELET VOLUME 11.6 fl (7.4-10.4); PLATELET COUNT 150 K/mm3 (130-400); RED BLOOD COUNT 3.55 M/mm3 (4.10-5.30); REDCELL DISTRIBUTION WIDTH-CV 14.6 % (11.5-14.5)
[2020-05-21 10:36] LABS: HEMATOCRIT 34.6 % (37.0-47.0)
[2020-05-21 11:19] LABS: LYMPHOCYTE 35 % (20.0-51.0); NEUTROPHILS 58 % (42.0-75.2)
[2020-05-21 11:21] LABS: PLATELET ESTIMATE NORMAL (NORMAL); TEAR DROP CELLS 1+
--- NOTE | 2020-05-28 10:30 | NUR ---
Here for cares. with sterile technique right upper arm PICC dressing change done with insertion site cleansed with chloraprep x 1, chlorhexidine impregnated disk applied, skin prep, stat lock, and tegaderm applied. no sign or symptoms of IV complications noted. concerns voiced. to return next week for cares. voiced understanding of instructions.
[2020-05-28 11:03] VITALS: BP 96/72; PULSE 94; TEMP 97.3
[2020-05-28 11:04] LABS: HEMOGLOBIN 12.6 g/dl (12.5-16.0); MEAN CELL VOLUME 99 fl (80.0-100.0); MEAN CORPUSCULAR HEMOGLOBIN 34 pg (27.0-31.0); MEAN CORPUSCULAR HGB CONC 34 g/dl (33.0-37.0); MEAN PLATELET VOLUME 11.1 fl (7.4-10.4); PLATELET COUNT 76 K/mm3 (130-400); RED BLOOD COUNT 3.72 M/mm3 (4.10-5.30); REDCELL DISTRIBUTION WIDTH-CV 14.9 % (11.5-14.5)
[2020-05-28 11:05] LABS: HEMATOCRIT 36.9 % (37.0-47.0)
[2020-05-28 11:21] LABS: BAND 2 % (0-10); LYMPHOCYTE 29 % (20.0-51.0); NEUTROPHILS 67 % (42.0-75.2)
[2020-05-28 11:22] LABS: PLATELET ESTIMATE DECREASED (NORMAL); TEAR DROP CELLS 1+
[2020-06-04 10:49] VITALS: BP 99/74; PULSE 99; TEMP 98.2
[2020-06-04 11:12] LABS: HEMOGLOBIN 11.9 g/dl (12.5-16.0); MEAN CELL VOLUME 99 fl (80.0-100.0); MEAN CORPUSCULAR HEMOGLOBIN 34 pg (27.0-31.0); MEAN CORPUSCULAR HGB CONC 34 g/dl (33.0-37.0); RED BLOOD COUNT 3.49 M/mm3 (4.10-5.30); REDCELL DISTRIBUTION WIDTH-CV 15.7 % (11.5-14.5)
[2020-06-04 11:16] LABS: ALBUMIN 4.3 gm/dL (3.5-5.0); BILIRUBIN,TOTAL 0.5 mg/dL (0.0-1.0); CALCIUM 10.1 mg/dL (8.4-10.2); CREATININE, serum 0.7 (0.52-1.25); TOTAL PROTEIN 7.1 gm/dL (6.4-8.2)
[2020-06-04 11:27] LABS: HEMATOCRIT 34.6 % (37.0-47.0)
[2020-06-04 11:29] LABS: PLATELET COUNT 47 K/mm3 (130-400)
[2020-06-04 12:42] LABS: BAND 6 % (0-10); BASOPHIL 1 % (0-2); NEUTROPHILS 37 % (42.0-75.2); PLATELET ESTIMATE DECREASED (NORMAL)
[2020-06-04 12:43] LABS: ANISOCYTOSIS 1+
[2020-06-04 12:44] LABS: LYMPHOCYTE 50 % (20.0-51.0)
[2020-06-11 10:42] VITALS: BP 101/70; PULSE 89; TEMP 97.8
[2020-06-11 11:10] LABS: HEMOGLOBIN 11.1 g/dl (12.5-16.0); MEAN CELL VOLUME 99 fl (80.0-100.0); MEAN CORPUSCULAR HEMOGLOBIN 34 pg (27.0-31.0); MEAN CORPUSCULAR HGB CONC 35 g/dl (33.0-37.0); MEAN PLATELET VOLUME 10.7 fl (7.4-10.4); PLATELET COUNT 94 K/mm3 (130-400); RED BLOOD COUNT 3.26 M/mm3 (4.10-5.30); REDCELL DISTRIBUTION WIDTH-CV 15.7 % (11.5-14.5)
[2020-06-11 11:12] LABS: HEMATOCRIT 32.1 % (37.0-47.0)
[2020-06-11 11:42] LABS: BAND 2 % (0-10); EOSINOPHIL 2 % (0-4); LYMPHOCYTE 58 % (20.0-51.0); NEUTROPHILS 34 % (42.0-75.2); PLATELET ESTIMATE DECREASED (NORMAL)
[2020-06-11 22:54] LABS: URINE MICROALBUMIN 0.7 mg/dL (0.0-1.7)
--- NOTE | 2020-06-18 10:30 | NUR ---
here for cares. With sterile technique right upper arm PICC dressing change tablet insertion site cleansed with ChloraPrep 1, chlorhexidine impregnated disc applied, skin prep, StatLock, and Tegaderm applied. No signs or symptoms of IV complications noted. No concerns voiced. Patient return next week for cares. Patient voiced understanding of instructions.
[2020-06-18 10:32] VITALS: BP 104/60; PULSE 79; TEMP 98.1
[2020-06-18 10:57] LABS: HEMOGLOBIN 11.1 g/dl (12.5-16.0); MEAN CELL VOLUME 99 fl (80.0-100.0); MEAN CORPUSCULAR HEMOGLOBIN 34 pg (27.0-31.0); MEAN CORPUSCULAR HGB CONC 35 g/dl (33.0-37.0); MEAN PLATELET VOLUME 11.8 fl (7.4-10.4); PLATELET COUNT 155 K/mm3 (130-400); RED BLOOD COUNT 3.25 M/mm3 (4.10-5.30); REDCELL DISTRIBUTION WIDTH-CV 14.8 % (11.5-14.5)
[2020-06-18 11:06] LABS: HEMATOCRIT 32.1 % (37.0-47.0)
[2020-06-18 11:16] LABS: BAND 8 % (0-10); EOSINOPHIL 1 % (0-4); LYMPHOCYTE 55 % (20.0-51.0); NEUTROPHILS 31 % (42.0-75.2); PLATELET ESTIMATE NORMAL (NORMAL)
--- NOTE | 2020-06-25 10:30 | NUR ---
Here for cares. with sterile technique right upper arm PICC dressing change done with insertion site cleansed with chloraprep x 1, chorhexidine impregnated disk applied, skin prep, stat lock, and tegaderm applied. no signs or symptoms of IV complications noted. no concerns voiced. to return next week for cares. voiced understanding of instructions.
[2020-06-25 10:54] LABS: HEMOGLOBIN 11.8 g/dl (12.5-16.0); MEAN CELL VOLUME 98 fl (80.0-100.0); MEAN CORPUSCULAR HEMOGLOBIN 34 pg (27.0-31.0); MEAN CORPUSCULAR HGB CONC 35 g/dl (33.0-37.0); MEAN PLATELET VOLUME 11.9 fl (7.4-10.4); PLATELET COUNT 105 K/mm3 (130-400); RED BLOOD COUNT 3.47 M/mm3 (4.10-5.30)
[2020-06-25 11:16] LABS: HEMATOCRIT 34.1 % (37.0-47.0)
[2020-06-25 11:19] VITALS: BP 92/30; PULSE 107; TEMP 97.8
[2020-06-25 11:55] LABS: BAND 4 % (0-10); EOSINOPHIL 1 % (0-4); LYMPHOCYTE 36 % (20.0-51.0); NEUTROPHILS 55 % (42.0-75.2); PLATELET ESTIMATE DECREASED (NORMAL)
[2020-07-02 11:00] VITALS: BP 111/80; PULSE 72; TEMP 97.7
--- NOTE | 2020-07-02 11:00 | NUR ---
Here for cares. PICC intact right upper arm with sterile technique insertion site cleansed with chloraprep x 1, chlorhexidine impregnated disk applied, skin prep, stat lock, and tegaderm applied. no signs or symptoms of IV complications noted. No concerns voiced. to return next week for cares. voiced understanding of instructions.
[2020-07-02 11:13] LABS: HEMOGLOBIN 10.4 g/dl (12.5-16.0); MEAN CELL VOLUME 98 fl (80.0-100.0); MEAN CORPUSCULAR HEMOGLOBIN 34 pg (27.0-31.0); MEAN CORPUSCULAR HGB CONC 34 g/dl (33.0-37.0); MEAN PLATELET VOLUME 10.2 fl (7.4-10.4); PLATELET COUNT 51 K/mm3 (130-400); RED BLOOD COUNT 3.08 M/mm3 (4.10-5.30); REDCELL DISTRIBUTION WIDTH-CV 15.6 % (11.5-14.5)
[2020-07-02 11:15] LABS: HEMATOCRIT 30.2 % (37.0-47.0)
[2020-07-02 11:19] LABS: ALBUMIN 3.8 gm/dL (3.5-5.0); BILIRUBIN,TOTAL 0.5 mg/dL (0.0-1.0); CALCIUM 10.8 mg/dL (8.4-10.2); CREATININE, serum 0.69 (0.52-1.25); POTASSIUM 4.7 mmol/L (3.4-5.0); TOTAL PROTEIN 6.3 gm/dL (6.4-8.2)
[2020-07-02 11:56] LABS: ANISOCYTOSIS 1+; BAND 4 % (0-10); BASOPHIL 1 % (0-2); EOSINOPHIL 2 % (0-4); LYMPHOCYTE 49 % (20.0-51.0); NEUTROPHILS 39 % (42.0-75.2); PLATELET ESTIMATE DECREASED (NORMAL)
[2020-07-02 11:58] LABS: OVALOCYTES 1+
[2020-07-02 12:02] LABS: SCHISTOCYTES 1+
[2020-07-09 10:33] VITALS: BP 137/71; PULSE 85; TEMP 98.3
[2020-07-09 10:53] LABS: MEAN CELL VOLUME 99 fl (80.0-100.0); MEAN CORPUSCULAR HEMOGLOBIN 34 pg (27.0-31.0); MEAN CORPUSCULAR HGB CONC 34 g/dl (33.0-37.0); PLATELET COUNT 138 K/mm3 (130-400); RED BLOOD COUNT 3.28 M/mm3 (4.10-5.30); REDCELL DISTRIBUTION WIDTH-CV 15.7 % (11.5-14.5)
[2020-07-09 10:54] LABS: HEMATOCRIT 32.3 % (37.0-47.0)
--- NOTE | 2020-07-09 11:00 | NUR ---
here for cares. Right upper arm PICC dressing changes done was insertion site cleansed with ChloraPrep 1, chlorhexidine impregnated disc applied, skin prep, StatLock, and Tegaderm applied. No signs or symptoms of IV complications noted. No concerns voiced. Patient to return next week for cares. Patient voiced understanding of instructions.
[2020-07-09 11:57] LABS: BAND 3 % (0-10); BASOPHIL 1 % (0-2); EOSINOPHIL 1 % (0-4); NEUTROPHILS 29 % (42.0-75.2); OVALOCYTES 2+; TEAR DROP CELLS 1+
[2020-07-09 11:58] LABS: PLATELET ESTIMATE NORMAL (NORMAL); SCHISTOCYTES 1+
[2020-07-09 11:59] LABS: LYMPHOCYTE 64 % (20.0-51.0)
[2020-07-16 11:13] LABS: HEMOGLOBIN 12.1 g/dl (12.5-16.0); MEAN CELL VOLUME 98 fl (80.0-100.0); MEAN CORPUSCULAR HEMOGLOBIN 34 pg (27.0-31.0); MEAN CORPUSCULAR HGB CONC 34 g/dl (33.0-37.0); MEAN PLATELET VOLUME 11.8 fl (7.4-10.4); PLATELET COUNT 195 K/mm3 (130-400); RED BLOOD COUNT 3.61 M/mm3 (4.10-5.30); REDCELL DISTRIBUTION WIDTH-CV 15.5 % (11.5-14.5)
[2020-07-16 11:14] VITALS: BP 101/74; PULSE 110; TEMP 97.9
[2020-07-16 11:18] LABS: HEMATOCRIT 35.5 % (37.0-47.0)
[2020-07-16 11:46] LABS: ANISOCYTOSIS 1+; BAND 4 % (0-10); BASOPHIL 2 % (0-2); EOSINOPHIL 2 % (0-4); LYMPHOCYTE 41 % (20.0-51.0); NEUTROPHILS 40 % (42.0-75.2); PLATELET ESTIMATE NORMAL (NORMAL)
[2020-07-16 11:48] LABS: SCHISTOCYTES 1+; TEAR DROP CELLS 1+
[~2020-07-23] VITALS: Ht 157.5 cm; Wt 67.0 kg
[2020-07-23 10:46] VITALS: BP 88/64; PULSE 108; TEMP 98.2
[~2020-07-23 11:00] MED LIST changes: +CEPHALEXIN500 M1 PO; +MOBIC 7.5MG7.5 MG PO
[2020-07-23 11:05] LABS: HEMOGLOBIN 12.3 g/dl (12.5-16.0); MEAN CELL VOLUME 97 fl (80.0-100.0); MEAN CORPUSCULAR HEMOGLOBIN 33 pg (27.0-31.0); MEAN CORPUSCULAR HGB CONC 35 g/dl (33.0-37.0); MEAN PLATELET VOLUME 12.7 fl (7.4-10.4); PLATELET COUNT 128 K/mm3 (130-400); RED BLOOD COUNT 3.68 M/mm3 (4.10-5.30); REDCELL DISTRIBUTION WIDTH-CV 14.6 % (11.5-14.5)
[2020-07-23 11:12] LABS: HEMATOCRIT 35.5 % (37.0-47.0)
[2020-07-23 11:50] LABS: BAND 7 % (0-10); LYMPHOCYTE 20 % (20.0-51.0); NEUTROPHILS 69 % (42.0-75.2); PLATELET ESTIMATE NORMAL (NORMAL)
== END 2020-07-25 09:07 | disposition home or self-care (01) ==
LOC: EUO 11:00
PROVIDERS: Internal Medicine Medical Oncology
DX: D46.21 Refractory anemia with excess of blasts 1 (principal)

== ENCOUNTER 2020-10-11 11:53 | Emergency (ER) | payer MEDICARE, OTHER ==
[~2020-10-11] VITALS: Ht 157.5 cm; Wt 64.1 kg
[2020-10-11 11:57] VITALS: TEMP 97.2
[2020-10-11 12:55] LABS: BASO # 0.1 (0.0-0.2); BASO % 0.4 % (0.0-2.0); EOS # 0.1 (0.0-0.7); EOS % 0.6 % (0-4.0); GRAN # 9.5 (1.4-6.5); GRAN % 80.1 % (42.2-75.2); HEMOGLOBIN 11.9 g/dl (12.5-16.0); LYMPH # 1.6 (1.2-3.4); LYMPH % 13.5 % (20.0-51.0); MEAN CELL VOLUME 101 fl (80.0-100.0); MEAN CORPUSCULAR HEMOGLOBIN 34 pg (27.0-31.0); MEAN CORPUSCULAR HGB CONC 34 g/dl (33.0-37.0); MEAN PLATELET VOLUME 13.3 fl (7.4-10.4); MONO # 0.5 (0.1-0.6); MONO % 4.3 % (1.7-9.3); PLATELET COUNT 95 K/mm3 (130-400); RED BLOOD COUNT 3.48 M/mm3 (4.10-5.30); REDCELL DISTRIBUTION WIDTH-CV 16.2 % (11.5-14.5)
[2020-10-11 13:02] LABS: BILIRUBIN,TOTAL 0.8 mg/dL (0.0-1.0); CREATININE, serum 0.68 (0.52-1.25); POTASSIUM 4.5 mmol/L (3.4-5.0)
[2020-10-11 14:11] LABS: COLLECTION METHOD CLEAN CATCH
[2020-10-11 14:16] LABS: MUCOUS Present /lpf; PH 5 (5-8); SQUAMOUS EPITHELIAL 0-2 /hpf; URINE APPEARANCE Clear; URINE BACTERIA None Seen /hpf; URINE BILIRUBIN Negative (NEGATIVE); URINE BLOOD 2+ (NEGATIVE); URINE COLOR Yellow; URINE GLUCOSE 3+ (NEGATIVE); URINE KETONE Negative (NEGATIVE); URINE LEUKOCYTE ESTERASE Negative (NEGATIVE); URINE NITRATE Negative (NEGATIVE); URINE PROTEIN(semi-quant) Negative (NEGATIVE); URINE RBC None Seen /hpf; URINE UROBILINOGEN Negative (NEGATIVE)
[2020-10-11] MEDS ORDERED: PERCOCET 325 MG1 TA2 PO (15:07)
[2020-10-11 15:25] VITALS: BP 93/70; PULSE 94
[2020-11-12] MEDS ORDERED: FLEXERIL 1010 MG/TAB PO (11:02)
== END 2020-10-11 15:28 | disposition home or self-care (01) ==
LOC: COL.ER 11:53
PROVIDERS: Family Medicine
DX: M54.5 Low back pain (principal); G89.29 Other chronic pain; E11.9 Type 2 diabetes mellitus without complications; Z79.4 Long term (current) use of insulin; Z85.6 Personal history of leukemia
CPT/HCPCS: J1170; J1815; J2405; J7120

== ENCOUNTER 2020-10-23 11:00 | Outpatient (RCR) | payer MEDICARE, OTHER ==
--- NOTE | 2020-07-30 10:45 | NUR ---
Here for cares. PICC intact right upper arm with sterile dressing change done with insertion site cleansed with chloraprep x 1, chlorhexidine impregnated disk applied, skin prep, stat lock, and tegaderm applied. no signs or symptoms of IV complications noted. no concerns voiced. re-wrapped with raffi to protect catheter. to return next week for cares. voiced understanding of instructions.
[2020-07-30 10:51] LABS: HEMOGLOBIN 10.4 g/dl (12.5-16.0); MEAN CELL VOLUME 98 fl (80.0-100.0); MEAN CORPUSCULAR HEMOGLOBIN 33 pg (27.0-31.0); MEAN CORPUSCULAR HGB CONC 34 g/dl (33.0-37.0); PLATELET COUNT 126 K/mm3 (130-400); RED BLOOD COUNT 3.15 M/mm3 (4.10-5.30); REDCELL DISTRIBUTION WIDTH-CV 14.8 % (11.5-14.5)
[2020-07-30 11:06] LABS: BAND 6 % (0-10); EOSINOPHIL 4 % (0-4); LYMPHOCYTE 33 % (20.0-51.0); NEUTROPHILS 53 % (42.0-75.2); OVALOCYTES 1+; PLATELET ESTIMATE NORMAL (NORMAL)
[2020-07-30 11:43] VITALS: BP 99/75; PULSE 85; TEMP 98.2
[2020-08-06 09:47] VITALS: BP 103/84; PULSE 91; TEMP 97.8
[2020-08-06 10:08] LABS: HEMOGLOBIN 11.7 g/dl (12.5-16.0); MEAN CELL VOLUME 98 fl (80.0-100.0); MEAN CORPUSCULAR HEMOGLOBIN 33 pg (27.0-31.0); MEAN CORPUSCULAR HGB CONC 34 g/dl (33.0-37.0); MEAN PLATELET VOLUME 11.2 fl (7.4-10.4); PLATELET COUNT 161 K/mm3 (130-400); RED BLOOD COUNT 3.56 M/mm3 (4.10-5.30); REDCELL DISTRIBUTION WIDTH-CV 15.2 % (11.5-14.5)
--- NOTE | 2020-08-06 10:20 | NUR ---
here for cares. PICC intact right upper arm. PICC sterile dressing change done with insertion site cleansed with ChloraPrep 1, chlorhexidine impregnated disc applied, skin prep, StatLock, and Tegaderm applied. No signs or symptoms of IV complications noted. No concerns voiced. Patient to return next week for cares. Patient voiced understanding of instructions.
[2020-08-06 10:28] LABS: HEMATOCRIT 34.9 % (37.0-47.0)
[2020-08-06 10:39] LABS: BAND 1 % (0-10); BASOPHIL 2 % (0-2); LYMPHOCYTE 40 % (20.0-51.0); NEUTROPHILS 52 % (42.0-75.2); OVALOCYTES 1+; PLATELET ESTIMATE NORMAL (NORMAL)
--- NOTE | 2020-08-13 11:00 | NUR ---
Here for cares. PICC intact right upper arm with sterile dressing change done with insertion site cleansed with chloraprep x 1, chlorhexidine impregnated disk, skin prep, stat lock, and tegaderm applied. no signs or smptoms of IV complications noted. no concerns voiced. wrapped with raffi to protect catheter. to return next week for cares. voiced understanding of instructions.
[2020-08-13 11:05] VITALS: BP 110/85; PULSE 67; TEMP 97.9
[2020-08-13 11:32] LABS: HEMOGLOBIN 11.9 g/dl (12.5-16.0); MEAN CELL VOLUME 98 fl (80.0-100.0); MEAN CORPUSCULAR HEMOGLOBIN 33 pg (27.0-31.0); MEAN CORPUSCULAR HGB CONC 34 g/dl (33.0-37.0); PLATELET COUNT 134 K/mm3 (130-400); REDCELL DISTRIBUTION WIDTH-CV 15.1 % (11.5-14.5)
[2020-08-13 11:33] LABS: ALBUMIN 4.4 gm/dL (3.5-5.0); BILIRUBIN,TOTAL 0.5 mg/dL (0.0-1.0); CALCIUM 10.1 mg/dL (8.4-10.2); CREATININE, serum 0.7 (0.52-1.25); POTASSIUM 4.2 mmol/L (3.4-5.0); TOTAL PROTEIN 7.2 gm/dL (6.4-8.2)
[2020-08-13 11:45] LABS: HEMATOCRIT 35.1 % (37.0-47.0)
[2020-08-13 11:52] LABS: BAND 5 % (0-10); BASOPHIL 1 % (0-2); LYMPHOCYTE 38 % (20.0-51.0); METAMYELOCYTE 1 % (0-0); MYELOCYTE 1 % (0-0); NEUTROPHILS 47 % (42.0-75.2); OVALOCYTES 2+; PLATELET ESTIMATE NORMAL (NORMAL)
[2020-08-20 11:16] LABS: ALBUMIN 4.3 gm/dL (3.5-5.0); BILIRUBIN,TOTAL 0.6 mg/dL (0.0-1.0); CALCIUM 9.8 mg/dL (8.4-10.2); CREATININE, serum 0.98 (0.52-1.25); POTASSIUM 4.6 mmol/L (3.4-5.0)
[2020-08-20 11:26] VITALS: BP 95/74; PULSE 114; TEMP 97.3
[2020-08-20 11:30] LABS: HEMATOCRIT 37.8 % (37.0-47.0); HEMOGLOBIN 12.8 g/dl (12.5-16.0); MEAN CELL VOLUME 100 fl (80.0-100.0); MEAN CORPUSCULAR HEMOGLOBIN 34 pg (27.0-31.0); MEAN CORPUSCULAR HGB CONC 34 g/dl (33.0-37.0); PLATELET COUNT 87 K/mm3 (130-400); RED BLOOD COUNT 3.78 M/mm3 (4.10-5.30); REDCELL DISTRIBUTION WIDTH-CV 15.6 % (11.5-14.5)
[2020-08-20 11:53] LABS: BAND 6 % (0-10); EOSINOPHIL 1 % (0-4); LYMPHOCYTE 33 % (20.0-51.0); NEUTROPHILS 60 % (42.0-75.2); NUCLEATED RED BLOOD CELL 1 (0-6); PLATELET ESTIMATE DECREASED (NORMAL)
[2020-08-27 11:01] VITALS: BP 96/66; PULSE 88; TEMP 99.1
[2020-08-27 11:20] LABS: ALBUMIN 4.3 gm/dL (3.5-5.0); BILIRUBIN,TOTAL 0.5 mg/dL (0.0-1.0); CALCIUM 9.9 mg/dL (8.4-10.2); CREATININE, serum 0.66 (0.52-1.25); TOTAL PROTEIN 7.1 gm/dL (6.4-8.2)
[2020-08-27 11:33] LABS: HEMOGLOBIN 11.3 g/dl (12.5-16.0); MEAN CELL VOLUME 99 fl (80.0-100.0); MEAN CORPUSCULAR HEMOGLOBIN 34 pg (27.0-31.0); MEAN CORPUSCULAR HGB CONC 34 g/dl (33.0-37.0); PLATELET COUNT 63 K/mm3 (130-400); RED BLOOD COUNT 3.35 M/mm3 (4.10-5.30); REDCELL DISTRIBUTION WIDTH-CV 15.8 % (11.5-14.5)
[2020-08-27 11:46] LABS: POTASSIUM 4.6 mmol/L (3.4-5.0)
[2020-08-27 12:27] LABS: BAND 4 % (0-10); BASOPHIL 1 % (0-2); LYMPHOCYTE 65 % (20.0-51.0); NEUTROPHILS 26 % (42.0-75.2); NUCLEATED RED BLOOD CELL 2 (0-6)
[2020-08-27 12:29] LABS: ANISOCYTOSIS 1+; PLATELET ESTIMATE DECREASED (NORMAL)
[2020-08-27 12:32] LABS: HEMATOCRIT 33.2 % (37.0-47.0)
[2020-09-03 10:45] VITALS: BP 87/58; PULSE 65; TEMP 98.2
[2020-09-03 10:55] LABS: MEAN CELL VOLUME 99 fl (80.0-100.0); MEAN CORPUSCULAR HEMOGLOBIN 33 pg (27.0-31.0); MEAN CORPUSCULAR HGB CONC 34 g/dl (33.0-37.0); MEAN PLATELET VOLUME 11.8 fl (7.4-10.4); PLATELET COUNT 77 K/mm3 (130-400); REDCELL DISTRIBUTION WIDTH-CV 15.8 % (11.5-14.5)
[2020-09-03 11:01] LABS: HEMATOCRIT 32.8 % (37.0-47.0)
[2020-09-03 11:07] LABS: BAND 5 % (0-10); EOSINOPHIL 1 % (0-4); LYMPHOCYTE 57 % (20.0-51.0); NEUTROPHILS 35 % (42.0-75.2); OVALOCYTES 1+; PLATELET ESTIMATE DECREASED (NORMAL); TEAR DROP CELLS 1+
[2020-09-10 10:38] VITALS: BP 93/63; PULSE 84; TEMP 98.5
[2020-09-10 11:18] LABS: HEMOGLOBIN 10.3 g/dl (12.5-16.0); MEAN CELL VOLUME 98 fl (80.0-100.0); MEAN CORPUSCULAR HEMOGLOBIN 33 pg (27.0-31.0); MEAN CORPUSCULAR HGB CONC 34 g/dl (33.0-37.0); MEAN PLATELET VOLUME 11.8 fl (7.4-10.4); PLATELET COUNT 98 K/mm3 (130-400); RED BLOOD COUNT 3.09 M/mm3 (4.10-5.30); REDCELL DISTRIBUTION WIDTH-CV 15.5 % (11.5-14.5)
[2020-09-10 11:24] LABS: HEMATOCRIT 30.3 % (37.0-47.0)
[2020-09-10 11:26] LABS: BILIRUBIN,TOTAL 0.5 mg/dL (0.0-1.0); CALCIUM 9.6 mg/dL (8.4-10.2); CREATININE, serum 0.6 (0.52-1.25); POTASSIUM 4.2 mmol/L (3.4-5.0); TOTAL PROTEIN 6.4 gm/dL (6.4-8.2)
[2020-09-10 12:03] LABS: ANISOCYTOSIS 1+
[2020-09-10 12:04] LABS: OVALOCYTES 1+
[2020-09-10 12:05] LABS: TEAR DROP CELLS 1+
[2020-09-10 12:19] LABS: BAND 1 % (0-10); BASOPHIL 1 % (0-2); EOSINOPHIL 5 % (0-4); LYMPHOCYTE 57 % (20.0-51.0); NEUTROPHILS 16 % (42.0-75.2); PLATELET ESTIMATE DECREASED (NORMAL)
[2020-09-17 11:00] VITALS: BP 104/77; PULSE 88; TEMP 97.8
[2020-09-17 11:17] LABS: HEMOGLOBIN 11.4 g/dl (12.5-16.0); MEAN CELL VOLUME 97 fl (80.0-100.0); MEAN CORPUSCULAR HEMOGLOBIN 33 pg (27.0-31.0); MEAN CORPUSCULAR HGB CONC 34 g/dl (33.0-37.0); MEAN PLATELET VOLUME 12.3 fl (7.4-10.4); PLATELET COUNT 77 K/mm3 (130-400); RED BLOOD COUNT 3.41 M/mm3 (4.10-5.30); REDCELL DISTRIBUTION WIDTH-CV 15.1 % (11.5-14.5)
[2020-09-17 11:24] LABS: HEMATOCRIT 33.1 % (37.0-47.0)
[2020-09-17 11:46] LABS: BAND 12 % (0-10); EOSINOPHIL 1 % (0-4); LYMPHOCYTE 30 % (20.0-51.0); METAMYELOCYTE 5 % (0-0); NEUTROPHILS 39 % (42.0-75.2); PLATELET ESTIMATE DECREASED (NORMAL)
[2020-09-17 11:47] LABS: OVALOCYTES 1+; SCHISTOCYTES 1+; TEAR DROP CELLS 1+
--- NOTE | 2020-09-24 11:00 | NUR ---
Here for cares. PICC intact right upper arm with sterile dressing change done with insertion site cleansed with chloraprep x 1, chlorhexidine impregnated disk applied, skin prep, stat lock, and tegaderm applied. no signs or symptoms of IV complications noted. no concerns voiced. to continue with cares in EU. voiced understanding of instructions.
[2020-09-24 11:03] LABS: HEMOGLOBIN 10.7 g/dl (12.5-16.0); MEAN CELL VOLUME 97 fl (80.0-100.0); MEAN CORPUSCULAR HEMOGLOBIN 34 pg (27.0-31.0); MEAN CORPUSCULAR HGB CONC 35 g/dl (33.0-37.0); MEAN PLATELET VOLUME 13.5 fl (7.4-10.4); PLATELET COUNT 90 K/mm3 (130-400); RED BLOOD COUNT 3.19 M/mm3 (4.10-5.30); REDCELL DISTRIBUTION WIDTH-CV 15.5 % (11.5-14.5)
[2020-09-24 11:11] LABS: ALBUMIN 4.3 gm/dL (3.5-5.0); BILIRUBIN,TOTAL 0.8 mg/dL (0.0-1.0); CALCIUM 9.6 mg/dL (8.4-10.2); CREATININE, serum 0.7 (0.52-1.25); POTASSIUM 4.3 mmol/L (3.4-5.0)
[2020-09-24 11:18] VITALS: BP 111/85; PULSE 83; TEMP 95.8
[2020-09-24 11:19] LABS: HEMATOCRIT 30.9 % (37.0-47.0)
[2020-09-24 11:43] LABS: EOSINOPHIL 1 % (0-4); LYMPHOCYTE 41 % (20.0-51.0); NEUTROPHILS 54 % (42.0-75.2); PLATELET ESTIMATE DECREASED (NORMAL)
[2020-09-24 11:46] LABS: MICROCYTOSIS 1+
[2020-10-01 11:13] VITALS: BP 97/70; PULSE 86; TEMP 98.1
[2020-10-01 11:28] LABS: HEMOGLOBIN 10.4 g/dl (12.5-16.0); MEAN CELL VOLUME 100 fl (80.0-100.0); MEAN CORPUSCULAR HEMOGLOBIN 34 pg (27.0-31.0); MEAN CORPUSCULAR HGB CONC 34 g/dl (33.0-37.0); MEAN PLATELET VOLUME 12.9 fl (7.4-10.4); PLATELET COUNT 113 K/mm3 (130-400); RED BLOOD COUNT 3.09 M/mm3 (4.10-5.30); REDCELL DISTRIBUTION WIDTH-CV 16.4 % (11.5-14.5)
[2020-10-01 11:33] LABS: HEMATOCRIT 30.9 % (37.0-47.0)
[2020-10-01 12:06] LABS: LYMPHOCYTE 8 % (20.0-51.0); NEUTROPHILS 86 % (42.0-75.2); PLATELET ESTIMATE DECREASED (NORMAL)
[2020-10-01 12:07] LABS: ANISOCYTOSIS 1+; OVALOCYTES 1+; TEAR DROP CELLS 1+
[2020-10-01 12:08] LABS: SCHISTOCYTES 1+
[2020-10-08 11:20] VITALS: BP 104/77; PULSE 101; TEMP 97.7
[2020-10-08 11:30] LABS: HEMOGLOBIN 12.2 g/dl (12.5-16.0); MEAN CELL VOLUME 101 fl (80.0-100.0); MEAN CORPUSCULAR HEMOGLOBIN 34 pg (27.0-31.0); MEAN CORPUSCULAR HGB CONC 34 g/dl (33.0-37.0); MEAN PLATELET VOLUME 12.3 fl (7.4-10.4); PLATELET COUNT 123 K/mm3 (130-400); RED BLOOD COUNT 3.56 M/mm3 (4.10-5.30); REDCELL DISTRIBUTION WIDTH-CV 16.7 % (11.5-14.5)
[2020-10-08 11:32] LABS: HEMATOCRIT 35.8 % (37.0-47.0)
[2020-10-08 11:45] LABS: BAND 1 % (0-10); LYMPHOCYTE 19 % (20.0-51.0); METAMYELOCYTE 1 % (0-0); NEUTROPHILS 75 % (42.0-75.2)
[2020-10-08 11:46] LABS: OVALOCYTES 1+; TEAR DROP CELLS 1+
[2020-10-08 11:47] LABS: PLATELET ESTIMATE DECREASED (NORMAL)
[2020-10-15 11:21] VITALS: BP 90/67; PULSE 95; TEMP 98.6
[2020-10-15 11:26] LABS: HEMOGLOBIN 10.4 g/dl (12.5-16.0); MEAN CELL VOLUME 101 fl (80.0-100.0); MEAN CORPUSCULAR HEMOGLOBIN 34 pg (27.0-31.0); MEAN CORPUSCULAR HGB CONC 34 g/dl (33.0-37.0); MEAN PLATELET VOLUME 11.9 fl (7.4-10.4); PLATELET COUNT 86 K/mm3 (130-400); RED BLOOD COUNT 3.02 M/mm3 (4.10-5.30); REDCELL DISTRIBUTION WIDTH-CV 16.1 % (11.5-14.5)
[2020-10-15 11:32] LABS: HEMATOCRIT 30.4 % (37.0-47.0)
[2020-10-15 12:42] LABS: EOSINOPHIL 1 % (0-4); LYMPHOCYTE 23 % (20.0-51.0); NEUTROPHILS 72 % (42.0-75.2)
[2020-10-15 12:43] LABS: ANISOCYTOSIS 1+; PLATELET ESTIMATE DECREASED (NORMAL)
[~2020-10-23] VITALS: Ht 157.5 cm; Wt 64.5 kg
[2020-10-23 10:51] LABS: HEMOGLOBIN 11.6 g/dl (12.5-16.0); MEAN CELL VOLUME 102 fl (80.0-100.0); MEAN CORPUSCULAR HEMOGLOBIN 35 pg (27.0-31.0); MEAN CORPUSCULAR HGB CONC 34 g/dl (33.0-37.0); MEAN PLATELET VOLUME 12.7 fl (7.4-10.4); PLATELET COUNT 96 K/mm3 (130-400); RED BLOOD COUNT 3.35 M/mm3 (4.10-5.30); REDCELL DISTRIBUTION WIDTH-CV 16.4 % (11.5-14.5)
[2020-10-23 10:54] LABS: HEMATOCRIT 34.3 % (37.0-47.0)
[2020-10-23 10:55] VITALS: BP 120/75; PULSE 80; TEMP 98.2
[~2020-10-23 11:00] MED LIST changes: +PERCOCET 325 MG1 TA2 PO
[2020-10-23 11:02] LABS: ALBUMIN 4.2 gm/dL (3.5-5.0); BILIRUBIN,TOTAL 0.6 mg/dL (0.0-1.0); CALCIUM 10.4 mg/dL (8.4-10.2); CREATININE, serum 0.85 (0.52-1.25); POTASSIUM 4.8 mmol/L (3.4-5.0); TOTAL PROTEIN 7.3 gm/dL (6.4-8.2)
[2020-10-23 11:06] LABS: BAND 1 % (0-10); EOSINOPHIL 2 % (0-4); LYMPHOCYTE 51 % (20.0-51.0); NEUTROPHILS 46 % (42.0-75.2); PLATELET ESTIMATE DECREASED (NORMAL)
[2020-10-23 11:07] LABS: OVALOCYTES 1+; TEAR DROP CELLS 1+
== END 2020-10-28 | disposition home or self-care (01) ==
LOC: EUO
PROVIDERS: Internal Medicine Medical Oncology
DX: D46.21 Refractory anemia with excess of blasts 1 (principal)

== ENCOUNTER 2021-01-21 11:00 | Outpatient (RCR) | payer MEDICARE, OTHER ==
[2020-10-29 10:47] VITALS: BP 87/43; PULSE 81; TEMP 98.3
[2020-10-29 10:58] LABS: HEMOGLOBIN 10.4 g/dl (12.5-16.0); MEAN CELL VOLUME 100 fl (80.0-100.0); MEAN CORPUSCULAR HEMOGLOBIN 35 pg (27.0-31.0); MEAN CORPUSCULAR HGB CONC 34 g/dl (33.0-37.0); MEAN PLATELET VOLUME 11.8 fl (7.4-10.4); PLATELET COUNT 160 K/mm3 (130-400); RED BLOOD COUNT 3.01 M/mm3 (4.10-5.30); REDCELL DISTRIBUTION WIDTH-CV 15.8 % (11.5-14.5)
[2020-10-29 11:08] LABS: HEMATOCRIT 30.2 % (37.0-47.0)
[2020-10-29 11:15] LABS: BAND 5 % (0-10); LYMPHOCYTE 31 % (20.0-51.0); NEUTROPHILS 61 % (42.0-75.2); OVALOCYTES 1+; PLATELET ESTIMATE NORMAL (NORMAL); TEAR DROP CELLS 1+
[2020-11-05 10:58] VITALS: BP 102/72; PULSE 100; TEMP 97.3
[2020-11-05 11:28] LABS: HEMOGLOBIN 11.6 g/dl (12.5-16.0); MEAN CELL VOLUME 100 fl (80.0-100.0); MEAN CORPUSCULAR HEMOGLOBIN 35 pg (27.0-31.0); MEAN CORPUSCULAR HGB CONC 35 g/dl (33.0-37.0); MEAN PLATELET VOLUME 12.2 fl (7.4-10.4); PLATELET COUNT 150 K/mm3 (130-400); RED BLOOD COUNT 3.33 M/mm3 (4.10-5.30); REDCELL DISTRIBUTION WIDTH-CV 14.7 % (11.5-14.5)
[2020-11-05 11:37] LABS: HEMATOCRIT 33.3 % (37.0-47.0)
[2020-11-05 11:58] LABS: BAND 3 % (0-10); LYMPHOCYTE 25 % (20.0-51.0); NEUTROPHILS 68 % (42.0-75.2); OVALOCYTES 3+; PLATELET ESTIMATE NORMAL (NORMAL); TEAR DROP CELLS 2+
[2020-11-12 10:57] VITALS: BP 116/64; PULSE 99; TEMP 98.8
[2020-11-12 10:59] LABS: MEAN CELL VOLUME 101 fl (80.0-100.0); MEAN CORPUSCULAR HEMOGLOBIN 35 pg (27.0-31.0); MEAN CORPUSCULAR HGB CONC 34 g/dl (33.0-37.0); MEAN PLATELET VOLUME 12.3 fl (7.4-10.4); PLATELET COUNT 72 K/mm3 (130-400); RED BLOOD COUNT 3.17 M/mm3 (4.10-5.30); REDCELL DISTRIBUTION WIDTH-CV 14.9 % (11.5-14.5)
[2020-11-12 12:05] LABS: BAND 2 % (0-10); EOSINOPHIL 1 % (0-4); LYMPHOCYTE 47 % (20.0-51.0); NEUTROPHILS 46 % (42.0-75.2)
[2020-11-12 12:08] LABS: OVALOCYTES 1+; PLATELET ESTIMATE DECREASED (NORMAL); TEAR DROP CELLS 1+
[2020-11-12 12:13] LABS: ANISOCYTOSIS 1+; POLYCHROMASIA 1+
[2020-11-19 10:38] VITALS: BP 121/77; PULSE 90; TEMP 98
[2020-11-19 10:44] LABS: HEMOGLOBIN 11.3 g/dl (12.5-16.0); MEAN CELL VOLUME 103 fl (80.0-100.0); MEAN CORPUSCULAR HEMOGLOBIN 34 pg (27.0-31.0); MEAN CORPUSCULAR HGB CONC 33 g/dl (33.0-37.0); MEAN PLATELET VOLUME 10.9 fl (7.4-10.4); PLATELET COUNT 65 K/mm3 (130-400); RED BLOOD COUNT 3.29 M/mm3 (4.10-5.30); REDCELL DISTRIBUTION WIDTH-CV 14.9 % (11.5-14.5)
[2020-11-19 10:47] LABS: HEMATOCRIT 33.8 % (37.0-47.0)
[2020-11-19 10:54] LABS: ALBUMIN 4.3 gm/dL (3.5-5.0); BILIRUBIN,TOTAL 0.5 mg/dL (0.0-1.0); CALCIUM 9.9 mg/dL (8.4-10.2); CREATININE, serum 0.69 (0.52-1.25); POTASSIUM 4.2 mmol/L (3.4-5.0); TOTAL PROTEIN 7.3 gm/dL (6.4-8.2)
[2020-11-19 11:10] LABS: BASOPHIL 1 % (0-2); EOSINOPHIL 1 % (0-4)
[2020-11-19 11:12] LABS: PLATELET ESTIMATE DECREASED (NORMAL)
[2020-11-19 11:13] LABS: ANISOCYTOSIS 1+
[2020-11-19 11:14] LABS: LYMPHOCYTE 68 % (20.0-51.0); NEUTROPHILS 27 % (42.0-75.2)
[2020-11-26 10:50] VITALS: BP 99/67; PULSE 81; TEMP 97.7
[2020-11-26 10:52] LABS: HEMOGLOBIN 11.1 g/dl (12.5-16.0); MEAN CELL VOLUME 99 fl (80.0-100.0); MEAN CORPUSCULAR HEMOGLOBIN 34 pg (27.0-31.0); MEAN CORPUSCULAR HGB CONC 34 g/dl (33.0-37.0); MEAN PLATELET VOLUME 11.9 fl (7.4-10.4); PLATELET COUNT 180 K/mm3 (130-400); RED BLOOD COUNT 3.27 M/mm3 (4.10-5.30); REDCELL DISTRIBUTION WIDTH-CV 14.2 % (11.5-14.5)
[2020-11-26 10:54] LABS: HEMATOCRIT 32.4 % (37.0-47.0)
[2020-11-26 12:43] LABS: BAND 11 % (0-10); LYMPHOCYTE 41 % (20.0-51.0); NEUTROPHILS 45 % (42.0-75.2)
[2020-11-26 12:44] LABS: OVALOCYTES 1+; TEAR DROP CELLS 1+
[2020-11-26 12:45] LABS: ANISOCYTOSIS 1+; PLATELET ESTIMATE NORMAL (NORMAL)
[2020-12-03 11:23] VITALS: BP 107/73; PULSE 83; TEMP 98.5
[2020-12-03 11:26] LABS: HEMATOCRIT 31.9 % (37.0-47.0); HEMOGLOBIN 10.9 g/dl (12.5-16.0); MEAN CELL VOLUME 100 fl (80.0-100.0); MEAN CORPUSCULAR HEMOGLOBIN 34 pg (27.0-31.0); MEAN CORPUSCULAR HGB CONC 34 g/dl (33.0-37.0); MEAN PLATELET VOLUME 11.5 fl (7.4-10.4); PLATELET COUNT 105 K/mm3 (130-400); RED BLOOD COUNT 3.19 M/mm3 (4.10-5.30); REDCELL DISTRIBUTION WIDTH-CV 13.9 % (11.5-14.5)
[2020-12-03 12:02] LABS: BAND 1 % (0-10); LYMPHOCYTE 47 % (20.0-51.0); NEUTROPHILS 49 % (42.0-75.2); PLATELET ESTIMATE DECREASED (NORMAL)
[2020-12-03 12:03] LABS: OVALOCYTES 1+; TEAR DROP CELLS 1+
[2020-12-03 12:04] LABS: SCHISTOCYTES 1+
[2020-12-10 10:58] LABS: HEMOGLOBIN 11.3 g/dl (12.5-16.0); MEAN CELL VOLUME 103 fl (80.0-100.0); MEAN CORPUSCULAR HEMOGLOBIN 34 pg (27.0-31.0); MEAN CORPUSCULAR HGB CONC 33 g/dl (33.0-37.0); PLATELET COUNT 50 K/mm3 (130-400); REDCELL DISTRIBUTION WIDTH-CV 14.3 % (11.5-14.5)
[2020-12-10 11:02] LABS: HEMATOCRIT 34.1 % (37.0-47.0)
[2020-12-10 11:35] VITALS: BP 116/81; PULSE 91; TEMP 97.7
[2020-12-10 11:49] LABS: BAND 4 % (0-10); EOSINOPHIL 1 % (0-4); LYMPHOCYTE 42 % (20.0-51.0); NEUTROPHILS 44 % (42.0-75.2)
[2020-12-10 11:52] LABS: OVALOCYTES 1+; TEAR DROP CELLS 1+
[2020-12-17 10:46] VITALS: BP 102/78; PULSE 99; TEMP 97.8
[2020-12-17 11:13] LABS: HEMOGLOBIN 12.2 g/dl (12.5-16.0); MEAN CELL VOLUME 101 fl (80.0-100.0); MEAN CORPUSCULAR HEMOGLOBIN 34 pg (27.0-31.0); MEAN CORPUSCULAR HGB CONC 34 g/dl (33.0-37.0); MEAN PLATELET VOLUME 12.8 fl (7.4-10.4); PLATELET COUNT 57 K/mm3 (130-400); RED BLOOD COUNT 3.56 M/mm3 (4.10-5.30); REDCELL DISTRIBUTION WIDTH-CV 14.6 % (11.5-14.5)
[2020-12-17 11:15] LABS: ALBUMIN 4.4 gm/dL (3.5-5.0); BILIRUBIN,TOTAL 0.6 mg/dL (0.0-1.0); CALCIUM 10.2 mg/dL (8.4-10.2); CREATININE, serum 0.72 (0.52-1.25); HEMATOCRIT 35.8 % (37.0-47.0); POTASSIUM 4.3 mmol/L (3.4-5.0); TOTAL PROTEIN 7.1 gm/dL (6.4-8.2)
[2020-12-17 12:18] LABS: BAND 2 % (0-10); EOSINOPHIL 1 % (0-4); LYMPHOCYTE 72 % (20.0-51.0); NEUTROPHILS 24 % (42.0-75.2)
[2020-12-17 12:20] LABS: TEAR DROP CELLS 1+
[2020-12-24 10:38] VITALS: BP 120/79; PULSE 79; TEMP 97.5
[2020-12-24 10:47] LABS: HEMOGLOBIN 11.1 g/dl (12.5-16.0); MEAN CELL VOLUME 101 fl (80.0-100.0); MEAN CORPUSCULAR HEMOGLOBIN 34 pg (27.0-31.0); MEAN CORPUSCULAR HGB CONC 33 g/dl (33.0-37.0); MEAN PLATELET VOLUME 11.8 fl (7.4-10.4); PLATELET COUNT 118 K/mm3 (130-400); RED BLOOD COUNT 3.29 M/mm3 (4.10-5.30); REDCELL DISTRIBUTION WIDTH-CV 14.5 % (11.5-14.5)
[2020-12-24 10:52] LABS: HEMATOCRIT 33.2 % (37.0-47.0)
[2020-12-24 11:49] LABS: BAND 2 % (0-10); EOSINOPHIL 5 % (0-4); NEUTROPHILS 16 % (42.0-75.2); OVALOCYTES 1+; PLATELET ESTIMATE DECREASED (NORMAL); TEAR DROP CELLS 1+
[2020-12-24 11:50] LABS: LYMPHOCYTE 72 % (20.0-51.0)
[2020-12-31 10:47] VITALS: BP 107/77; PULSE 89; TEMP 99
[2020-12-31 10:59] LABS: HEMOGLOBIN 10.5 g/dl (12.5-16.0); MEAN CELL VOLUME 100 fl (80.0-100.0); MEAN CORPUSCULAR HEMOGLOBIN 35 pg (27.0-31.0); MEAN CORPUSCULAR HGB CONC 35 g/dl (33.0-37.0); MEAN PLATELET VOLUME 12.6 fl (7.4-10.4); PLATELET COUNT 94 K/mm3 (130-400); RED BLOOD COUNT 3.04 M/mm3 (4.10-5.30); REDCELL DISTRIBUTION WIDTH-CV 14.1 % (11.5-14.5)
[2020-12-31 11:47] LABS: HEMATOCRIT 30.4 % (37.0-47.0)
[2020-12-31 12:15] LABS: BAND 3 % (0-10); LYMPHOCYTE 55 % (20.0-51.0); NEUTROPHILS 36 % (42.0-75.2); NUCLEATED RED BLOOD CELL 2 (0-6); PLATELET ESTIMATE DECREASED (NORMAL)
[2020-12-31 12:16] LABS: OVALOCYTES 1+
[2021-01-07 11:03] VITALS: BP 109/85; PULSE 100; TEMP 98.6
[2021-01-07 11:15] LABS: HEMOGLOBIN 10.7 g/dl (12.5-16.0); MEAN CELL VOLUME 100 fl (80.0-100.0); MEAN CORPUSCULAR HEMOGLOBIN 34 pg (27.0-31.0); MEAN CORPUSCULAR HGB CONC 34 g/dl (33.0-37.0); RED BLOOD COUNT 3.14 M/mm3 (4.10-5.30); REDCELL DISTRIBUTION WIDTH-CV 14.8 % (11.5-14.5)
[2021-01-07 11:36] LABS: HEMATOCRIT 31.3 % (37.0-47.0)
[2021-01-07 11:38] LABS: PLATELET COUNT 47 K/mm3 (130-400)
[2021-01-07 11:49] LABS: BAND 4 % (0-10); EOSINOPHIL 3 % (0-4); LYMPHOCYTE 47 % (20.0-51.0); NEUTROPHILS 44 % (42.0-75.2); OVALOCYTES 1+; PLATELET ESTIMATE DECREASED (NORMAL); TEAR DROP CELLS 1+
[2021-01-14 11:10] VITALS: BP 119/81; PULSE 90; TEMP 98.6
[2021-01-14 11:16] LABS: HEMOGLOBIN 10.8 g/dl (12.5-16.0); MEAN CELL VOLUME 99 fl (80.0-100.0); MEAN CORPUSCULAR HEMOGLOBIN 35 pg (27.0-31.0); MEAN CORPUSCULAR HGB CONC 35 g/dl (33.0-37.0); PLATELET COUNT 54 K/mm3 (130-400); RED BLOOD COUNT 3.12 M/mm3 (4.10-5.30); REDCELL DISTRIBUTION WIDTH-CV 15.9 % (11.5-14.5)
[2021-01-14 11:25] LABS: ALBUMIN 4.1 gm/dL (3.5-5.0); BILIRUBIN,TOTAL 0.5 mg/dL (0.0-1.0); CALCIUM 10.1 mg/dL (8.4-10.2); CREATININE, serum 0.61 (0.52-1.25); HEMATOCRIT 30.9 % (37.0-47.0); POTASSIUM 4.6 mmol/L (3.4-5.0); TOTAL PROTEIN 7.2 gm/dL (6.4-8.2)
[2021-01-14 11:56] LABS: EOSINOPHIL 1 % (0-4); LYMPHOCYTE 87 % (20.0-51.0); NEUTROPHILS 10 % (42.0-75.2); PLATELET ESTIMATE DECREASED (NORMAL)
[2021-01-14 11:57] LABS: ANISOCYTOSIS 1+
[~2021-01-21] VITALS: Ht 157.5 cm; Wt 66.9 kg
[2021-01-21 10:39] VITALS: BP 129/76; PULSE 77; TEMP 98.1
[2021-01-21 10:51] LABS: MEAN CELL VOLUME 101 fl (80.0-100.0); MEAN CORPUSCULAR HGB CONC 33 g/dl (33.0-37.0); MEAN PLATELET VOLUME 12.4 fl (7.4-10.4); PLATELET COUNT 122 K/mm3 (130-400); RED BLOOD COUNT 2.86 M/mm3 (4.10-5.30); REDCELL DISTRIBUTION WIDTH-CV 15.9 % (11.5-14.5)
[2021-01-21 10:54] LABS: HEMOGLOBIN 9.7 g/dl (12.5-16.0); MEAN CORPUSCULAR HEMOGLOBIN 34 pg (27.0-31.0)
[~2021-01-21 11:00] MED LIST changes: +AMOXICILLIN 50500 MG PO; +FLEXERIL 1010 MG/TAB PO
[2021-01-21 11:16] LABS: LYMPHOCYTE 60 % (20.0-51.0); METAMYELOCYTE 2 % (0-0); NEUTROPHILS 28 % (42.0-75.2)
[2021-01-21 11:17] LABS: ANISOCYTOSIS 1+; PLATELET ESTIMATE DECREASED (NORMAL); POIKILOCYTOSIS 1+; SCHISTOCYTES 1+
[2021-05-17] MEDS ORDERED: FLEXERIL5 MG PO (13:28)
[2021-06-10] MEDS ORDERED: NEURONTIN300 MG/CAP PO (11:08)
[2021-08-07] MEDS ORDERED: MAGIC MOUTH PO (11:04)
== END 2021-01-27 | disposition home or self-care (01) ==
LOC: EUO
PROVIDERS: Internal Medicine Medical Oncology
DX: D46.21 Refractory anemia with excess of blasts 1 (principal); D69.6 Thrombocytopenia, unspecified

== ENCOUNTER 2021-02-04 11:00 | Outpatient (RCR) | payer MEDICARE, OTHER ==
[2021-01-28 12:01] LABS: MEAN CELL VOLUME 100 fl (80.0-100.0); MEAN CORPUSCULAR HEMOGLOBIN 34 pg (27.0-31.0); MEAN CORPUSCULAR HGB CONC 34 g/dl (33.0-37.0); PLATELET COUNT 68 K/mm3 (130-400); RED BLOOD COUNT 2.93 M/mm3 (4.10-5.30); REDCELL DISTRIBUTION WIDTH-CV 15.7 % (11.5-14.5)
[2021-01-28 12:06] LABS: HEMATOCRIT 29.4 % (37.0-47.0)
[2021-01-28 12:14] VITALS: BP 115/74; PULSE 86; TEMP 98.4
[2021-01-28 12:21] LABS: BAND 1 % (0-10); EOSINOPHIL 1 % (0-4); LYMPHOCYTE 55 % (20.0-51.0); NEUTROPHILS 33 % (42.0-75.2); OVALOCYTES 2+; PLATELET ESTIMATE DECREASED (NORMAL); SCHISTOCYTES 1+; TEAR DROP CELLS 1+
[~2021-02-04] VITALS: Ht 157.5 cm; Wt 68.1 kg
[2021-02-04 11:13] LABS: MEAN CELL VOLUME 103 fl (80.0-100.0); MEAN CORPUSCULAR HGB CONC 33 g/dl (33.0-37.0); RED BLOOD COUNT 2.78 M/mm3 (4.10-5.30); REDCELL DISTRIBUTION WIDTH-CV 16.1 % (11.5-14.5)
[2021-02-04 11:15] VITALS: BP 114/70; PULSE 100; TEMP 98.9
[2021-02-04 11:20] LABS: HEMATOCRIT 28.7 % (37.0-47.0); HEMOGLOBIN 9.4 g/dl (12.5-16.0); MEAN CORPUSCULAR HEMOGLOBIN 34 pg (27.0-31.0)
[2021-02-04 11:21] LABS: PLATELET COUNT 32 K/mm3 (130-400)
[2021-02-04 12:43] LABS: EOSINOPHIL 1 % (0-4); LYMPHOCYTE 70 % (20.0-51.0); NEUTROPHILS 27 % (42.0-75.2)
[2021-02-04 12:47] LABS: HYPOCHROMIA 1+; PLATELET ESTIMATE DECREASED (NORMAL)
[2021-02-04 12:48] LABS: ANISOCYTOSIS 1+; OVALOCYTES 1+
[2021-02-05] MEDS ORDERED: NOVOLOG FLEX100 U/ML SQ (16:58)
[2021-02-08] MEDS ORDERED: OMNICEF 300MG300 MG PO ×2 (09:26)
[2021-02-08] MEDS ORDERED: MACROBID 1100 MG/CAP PO (13:39)
[2021-05-17] MEDS ORDERED: FLEXERIL5 MG PO (13:28)
[2021-06-10] MEDS ORDERED: NEURONTIN300 MG/CAP PO (11:08)
[2021-08-07] MEDS ORDERED: MAGIC MOUTH PO (11:04)
== END 2021-02-08 07:52 | disposition other institution (70) ==
LOC: EUO 11:00
PROVIDERS: Internal Medicine Medical Oncology
DX: D46.1 Refractory anemia with ring sideroblasts (principal); D69.6 Thrombocytopenia, unspecified; D46.21 Refractory anemia with excess of blasts 1

== ENCOUNTER 2021-02-05 10:36 | Inpatient (IN) | payer MEDICARE, OTHER ==
[~2021-02-05] VITALS: Ht 157.5 cm; Wt 74.1 kg
[2021-02-05 11:53] LABS: ALANINE AMINOTRANSFERASE 34 U/L (4-34); ALBUMIN 3.7 gm/dL (3.5-5.0); ALKALINE PHOSPHATASE 60 U/L (50-136); ANION GAP 10 mmol/L (7-16); AST,SGOT 41 U/L (15-37); BILIRUBIN,TOTAL 0.3 mg/dL (0.0-1.0); BLOOD UREA NITROGEN 24 mg/dL (7-17); CALCIUM 9.5 mg/dL (8.4-10.2); CARBON DIOXIDE 22 mmol/L (22-30); CHLORIDE 103 mmol/L (98-107); CREATININE, serum 0.61 (0.52-1.25); GLUCOSE 249 mg/dL (74-106); LIPASE 94 U/L (23-300); POTASSIUM 4.4 mmol/L (3.4-5.0); SODIUM 136 mmol/L (137-145); TOTAL PROTEIN 6.6 gm/dL (6.4-8.2)
[2021-02-05 12:02] LABS: MEAN CELL VOLUME 102 fl (80.0-100.0); MEAN CORPUSCULAR HGB CONC 34 g/dl (33.0-37.0); REDCELL DISTRIBUTION WIDTH-CV 16.1 % (11.5-14.5)
[2021-02-05 12:16] LABS: TROPONIN-I < 0.012 ng/mL (0.000-0.035)
[2021-02-05 13:35] LABS: HEMATOCRIT 27.6 % (37.0-47.0); HEMOGLOBIN 9.4 g/dl (12.5-16.0); MEAN CORPUSCULAR HEMOGLOBIN 35 pg (27.0-31.0)
[2021-02-05 13:37] LABS: PLATELET COUNT 29 K/mm3 (130-400)
[2021-02-05 13:41] LABS: NEUTROPHILS 23 % (42.0-75.2)
[2021-02-05 13:42] LABS: ANISOCYTOSIS 1+; MICROCYTOSIS 1+; PLATELET ESTIMATE DECREASED (NORMAL)
[2021-02-05 13:43] LABS: HYPOCHROMIA 1+; OVALOCYTES 1+; POIKILOCYTOSIS 2+; SCHISTOCYTES 1+; TEAR DROP CELLS 1+
[2021-02-05 13:44] LABS: LYMPHOCYTE 72 % (20.0-51.0)
[2021-02-05 14:00] LABS: COLLECTION METHOD CLEAN CATCH
[2021-02-05 14:57] LABS: MUCOUS Present /lpf; PH 5 (5-8); URINE APPEARANCE Hazy; URINE BACTERIA Many /hpf; URINE BILIRUBIN Negative (NEGATIVE); URINE BLOOD Negative (NEGATIVE); URINE COLOR Yellow; URINE GLUCOSE 2+ (NEGATIVE); URINE KETONE Negative (NEGATIVE); URINE LEUKOCYTE ESTERASE Negative (NEGATIVE); URINE NITRATE Positive (NEGATIVE); URINE PROTEIN(semi-quant) Negative (NEGATIVE); URINE RBC 0-2 /hpf; URINE UROBILINOGEN Negative (NEGATIVE)
[2021-02-05 16:21] VITALS: BP 114/71; PULSE 80; TEMP 98.6
[2021-02-05 16:38] LABS: MAGNESIUM 1.4 mg/dL (1.6-2.3)
[2021-02-05] MEDS ORDERED: NOVOLOG FLEX100 U/ML SQ (16:58)
--- NOTE | 2021-02-05 17:00 | NUR ---
Pt admitted to medical unit rm 311 from ED, awake and alert, oriented x 4, reports generalized aches 5 out of 10. Saline lock IV to left AC patent without s/s of complications. PICC to right upper arm on admission, pt refuses use of PICC here at hospital. Physical assessment unremarkable. No further needs reported. Call light in reach.
--- NOTE | 2021-02-05 18:55 | NUR ---
Report given to MATILDE Galdamez. IVF's infusing per orders to left AC site without s/s of complications.
[2021-02-05 19:21] VITALS: BP 95/68; PULSE 81; TEMP 98.6
--- NOTE | 2021-02-05 22:15 | NUR ---
Patient laying in bed upon enter the room. Patient pleasant, A/Ox4. Patient denies any pain or discomfort. Denies SOB, dypsnea, headache, dizziness, or N/V. NS running at 150ml/hr via left AC. Right upper arm PICC site C/D/I. All scheduled meds given per DEC. Call light within reach. Patient denies any needs at this time.
[2021-02-06 00:16] VITALS: BP 88/50; PULSE 80; TEMP 99
[2021-02-06 03:47] VITALS: BP 91/62; PULSE 91; TEMP 98.9
--- NOTE | 2021-02-06 05:51 | NUR ---
Patient c/o generalized pain 5/10 all over the body and headache around midnight. PRN [place] given at 00:03 am for pain. Patient fell asleep afterwards. No acute distress noted. Call light within reach. Bed alarms on.
[2021-02-06 07:30] LABS: MEAN CELL VOLUME 104 fl (80.0-100.0); MEAN CORPUSCULAR HGB CONC 33 g/dl (33.0-37.0); RED BLOOD COUNT 2.31 M/mm3 (4.10-5.30); REDCELL DISTRIBUTION WIDTH-CV 16.7 % (11.5-14.5)
[2021-02-06 07:31] LABS: CALCIUM 8.7 mg/dL (8.4-10.2); CREATININE, serum 0.58 (0.52-1.25); POTASSIUM 3.9 mmol/L (3.4-5.0)
[2021-02-06 07:34] LABS: MEAN CORPUSCULAR HEMOGLOBIN 35 pg (27.0-31.0); PLATELET COUNT 26 K/mm3 (130-400)
[2021-02-06 07:56] VITALS: BP 122/83; PULSE 81; TEMP 98.5
[2021-02-06 08:08] LABS: BAND 4 % (0-10); EOSINOPHIL 1 % (0-4); NEUTROPHILS 40 % (42.0-75.2); PLATELET ESTIMATE DECREASED (NORMAL)
[2021-02-06 08:09] LABS: OVALOCYTES 1+; POIKILOCYTOSIS 1+
[2021-02-06 08:10] LABS: ANISOCYTOSIS 1+; TEAR DROP CELLS 1+
[2021-02-06 08:11] LABS: LYMPHOCYTE 55 % (20.0-51.0); MICROCYTOSIS 1+
--- NOTE | 2021-02-06 09:59 | NUR ---
Pt assessment completed and charted, medications administered per mar. Pt A&O, SBA in room, on room air, breathing is even and unlabored, LS cta, HRRR. BS active X4. No edema noted. Pt has LAC IV w/ NS @ 150ml/hr running w/o issue. Pt c/o general aches and pains all over, received [place] PRN per mar. Pt denies N/V/D, chest pain, SOB. Pt lathargic this morning but did work w/ PT/OT. GUY PICC in place, not assessed or used by this nurse. Per pt, "only used for chemo". No further needs expressed at this time. Call light within reach.
--- NOTE | 2021-02-06 10:49 | NUR ---
HECTOR met with the patient to discuss discharge plan. The patient lives in [place]. She states that her daughter, Kalpana (ph#[phone]), lives with her. She reports independence with ADLs and does not have any DME. The patient's PCP is Dr. Ivelisse Neal and she receives her medications from [facility]. The patient does not have a DPOA-HC in EMR, but she states that she does have one completed and that it designates her daughter, Kalpana. The patient plans to return home with Kalpana upon discharge. HECTOR then contacted Kalpana to review the above. Kalpana has no concerns with the patient returning home upon discharge. She confirms that she is the patient's DPOA-HC and states that she can bring a copy up to the hospital. No additional needs at this time. *Discharge plan: home with daughter*
[2021-02-06 12:08] VITALS: BP 126/74; PULSE 87
--- NOTE | 2021-02-06 12:28 | NUR ---
GWEN Sanchez in w/ pt, PICC line assessed. OK'd to use. Purple port accessed for IVF, cath line stained, flushes well, blood return.
--- NOTE | 2021-02-06 12:38 | NUR ---
First visit from the senior net web developer. No needs right now.
--- NOTE | 2021-02-06 12:42 | NUR ---
Pt resting in bed at this time. She has had and tolerated lunch, no complaints of pain. Assisted to the restroom. She is steady on her feet, no complaints of dizziness. Laura RN with [facility] was in to assess patient's PICC line, okay to use. Fluids infusing. Pt denies, needs, will continue to monitor
[2021-02-06 17:06] VITALS: BP 110/63; PULSE 85; TEMP 98.6
--- NOTE | 2021-02-06 17:56 | NUR ---
Pt has done well throughout the day. Had some complaints of headache which pain medication helped with. She did take a shower today, eating well and does well ambulating. She has had dinner, call light within reach
--- NOTE | 2021-02-06 20:00 | NUR ---
Assessment complete. Patient is resting in bed with fluids infusing into right upper arm PICC. She is alert and oriented and complains of a headache, for which [place] is adminstered, as this helped her during dayshift. Heart sounds are normal/regular, lungs are clear and no edema is noted. No new concerns voiced by patient. Call light in reach.
[2021-02-06 20:07] VITALS: BP 112/47; PULSE 86; TEMP 99.1
[2021-02-07 00:07] VITALS: BP 130/71; PULSE 81; TEMP 98.7
[2021-02-07 04:00] VITALS: BP 100/55; PULSE 73; TEMP 98.9
[2021-02-07 07:19] LABS: MEAN CELL VOLUME 105 fl (80.0-100.0); MEAN CORPUSCULAR HGB CONC 32 g/dl (33.0-37.0); RED BLOOD COUNT 2.22 M/mm3 (4.10-5.30); REDCELL DISTRIBUTION WIDTH-CV 16.7 % (11.5-14.5)
[2021-02-07 07:26] LABS: HEMATOCRIT 23.2 % (37.0-47.0); HEMOGLOBIN 7.5 g/dl (12.5-16.0); MEAN CORPUSCULAR HEMOGLOBIN 34 pg (27.0-31.0); PLATELET COUNT 25 K/mm3 (130-400)
[2021-02-07 07:31] LABS: CALCIUM 9.2 mg/dL (8.4-10.2); CREATININE, serum 0.55 (0.52-1.25); MAGNESIUM 1.6 mg/dL (1.6-2.3)
[2021-02-07 08:08] VITALS: BP 117/87; PULSE 82; TEMP 98
--- NOTE | 2021-02-07 08:23 | NUR ---
Pt doing well this morning. No complaints of pain at this time. She has had breakfast and ate most of it. Denies any needs, will continue to monitor
[2021-02-07 08:36] LABS: ANISOCYTOSIS 1+; BASOPHIL 2 % (0-2); EOSINOPHIL 4 % (0-4); HYPOCHROMIA 1+; LYMPHOCYTE 76 % (20.0-51.0); NEUTROPHILS 18 % (42.0-75.2); OVALOCYTES 1+; PLATELET ESTIMATE DECREASED (NORMAL)
--- NOTE | 2021-02-07 10:00 | NUR ---
Visted with Radha RN yesturday and Ramonita RN today regarding patient's PICC. It has been in place for 2 years. She is still receiving chemotherapy. Both RNs will visit with hospitalist regarding how long PICC has been in place.
[2021-02-07 11:53] VITALS: BP 112/68; PULSE 88; TEMP 97.9
[2021-02-07 16:31] VITALS: BP 105/67; PULSE 81; TEMP 98
[2021-02-07 19:21] VITALS: BP 115/72; PULSE 81; TEMP 98.1
--- NOTE | 2021-02-07 20:30 | NUR ---
Patient assessed at this time. Alert and oriented x 4. Denies having pain and discomfort at this time. PICC to RUE. Fluids running per orders. Denies SOB and dsypnea. LS CTA. Respirations even and unlabored. HRR. Capillary refill less than 3 seconds. Non-tenting skin turgor. BSAx4. Abdomen soft and non-tender. No edema.Voices no questions, needs, or concerns at this time. Resting in bed with call light within reach.
[2021-02-08] VITALS: BP 123/66; PULSE 71; TEMP 98.2
[2021-02-08 04:00] VITALS: BP 119/81; PULSE 64; TEMP 98.2
--- NOTE | 2021-02-08 06:08 | NUR ---
Patient has been resting in bed with call light within reach. Received PRN [place] twice this shift for headache. Voices no questions, needs, or concerns at this time. IV fluids continue per orders.
[2021-02-08 06:43] LABS: CALCIUM 9.4 mg/dL (8.4-10.2); CREATININE, serum 0.48 (0.52-1.25)
[2021-02-08 07:08] LABS: MEAN CELL VOLUME 104 fl (80.0-100.0); MEAN CORPUSCULAR HGB CONC 33 g/dl (33.0-37.0); RED BLOOD COUNT 2.23 M/mm3 (4.10-5.30); REDCELL DISTRIBUTION WIDTH-CV 16.4 % (11.5-14.5)
[2021-02-08 07:48] LABS: HEMOGLOBIN 7.5 g/dl (12.5-16.0); MEAN CORPUSCULAR HEMOGLOBIN 34 pg (27.0-31.0)
[2021-02-08 07:49] LABS: HEMATOCRIT 23.1 % (37.0-47.0); PLATELET COUNT 24 K/mm3 (130-400)
[2021-02-08 08:04] VITALS: BP 98/62; PULSE 74; TEMP 98
--- NOTE | 2021-02-08 08:50 | NUR ---
PT PLEASANT, AOX4, PT DENIES PAIN AT THIS TIME AND REPORTS THE NORCO TOOK CARE OF HER HEADACHE, IV FLUIDS INFUSING, MEDICATIONS GIVEN, CALL LIGHT WITHIN REACH, FRESH ICE WATER BROUGHT IN, CRITICAL LAB VALUES DISCUSSED WITH DR. PATTON, NO OTHER NEEDS AT THIS TIME.
[2021-02-08 09:13] LABS: EOSINOPHIL 4 % (0-4); LYMPHOCYTE 72 % (20.0-51.0); NEUTROPHILS 24 % (42.0-75.2)
[2021-02-08] MEDS ORDERED: OMNICEF 300MG300 MG PO ×2 (09:26)
--- NOTE | 2021-02-08 10:30 | NUR ---
PT DISCHARGE EDUCATION PROVIDED, PT BELONGINGS GATHERED FOR DISCHARGE. PT ESCORTED OUT AROUND 1100, NO OTHER NEEDS AT THIS TIME.
[2021-02-08] MEDS ORDERED: MACROBID 1100 MG/CAP PO (13:39)
[2021-05-17] MEDS ORDERED: FLEXERIL5 MG PO (13:28)
[2021-06-10] MEDS ORDERED: NEURONTIN300 MG/CAP PO (11:08)
[2021-08-07] MEDS ORDERED: MAGIC MOUTH PO (11:04)
== END 2021-02-08 11:00 | disposition home or self-care (01) | DRG 871 ==
LOC: COL.ER 10:36 → MEDICAL 14:30
PROVIDERS: Emergency Medicine; Family Medicine; Physician Assistant; ADMIT Internal Medicine
DX: A41.9 Sepsis, unspecified organism (principal); D61.810 Antineoplastic chemotherapy induced pancytopenia; K52.1 Toxic gastroenteritis and colitis; D46.9 Myelodysplastic syndrome, unspecified; R65.20 Severe sepsis without septic shock; R53.81 Other malaise; F32.9 Major depressive disorder, single episode, unspecified; G89.29 Other chronic pain; K21.9 Gastro-esophageal reflux disease without esophagitis; G62.9 Polyneuropathy, unspecified; M10.9 Gout, unspecified; T45.1X5A Adverse effect of antineoplastic and immunosuppressive drugs, initial encounter; D70.9 Neutropenia, unspecified; M79.10 Myalgia, unspecified site; E83.42 Hypomagnesemia
CPT/HCPCS: 99222-AI; 99232-AI; 99233-AI; 99239; J0692; J1815; J3475; J7030; J7120

== ENCOUNTER 2021-05-09 13:00 | Outpatient (RCR) | payer MEDICARE, OTHER ==
[2021-02-11 11:06] VITALS: BP 108/65; PULSE 91; TEMP 98.8
[2021-02-11 11:17] LABS: MEAN CELL VOLUME 100 fl (80.0-100.0); MEAN CORPUSCULAR HGB CONC 34 g/dl (33.0-37.0); RED BLOOD COUNT 2.43 M/mm3 (4.10-5.30); REDCELL DISTRIBUTION WIDTH-CV 16.9 % (11.5-14.5)
[2021-02-11 11:18] LABS: HEMATOCRIT 24.4 % (37.0-47.0); HEMOGLOBIN 8.4 g/dl (12.5-16.0); MEAN CORPUSCULAR HEMOGLOBIN 35 pg (27.0-31.0)
[2021-02-11 11:19] LABS: PLATELET COUNT 41 K/mm3 (130-400)
[2021-02-11 11:20] LABS: BILIRUBIN,TOTAL 0.5 mg/dL (0.0-1.0); CALCIUM 9.4 mg/dL (8.4-10.2); CREATININE, serum 0.69 (0.52-1.25); POTASSIUM 4.3 mmol/L (3.4-5.0); TOTAL PROTEIN 6.8 gm/dL (6.4-8.2)
[2021-02-11 12:07] LABS: ANISOCYTOSIS 1+; EOSINOPHIL 3 % (0-4); LYMPHOCYTE 77 % (20.0-51.0); NEUTROPHILS 18 % (42.0-75.2); OVALOCYTES 1+; PLATELET ESTIMATE DECREASED (NORMAL); POIKILOCYTOSIS 1+
[2021-02-18 10:50] VITALS: BP 140/62; PULSE 59; TEMP 98
[2021-02-18 10:54] LABS: MEAN CELL VOLUME 105 fl (80.0-100.0); MEAN CORPUSCULAR HGB CONC 34 g/dl (33.0-37.0); MEAN PLATELET VOLUME 13.4 fl (7.4-10.4); PLATELET COUNT 78 K/mm3 (130-400); REDCELL DISTRIBUTION WIDTH-CV 18.4 % (11.5-14.5)
[2021-02-18 11:02] LABS: HEMATOCRIT 26.2 % (37.0-47.0); HEMOGLOBIN 8.8 g/dl (12.5-16.0); MEAN CORPUSCULAR HEMOGLOBIN 35 pg (27.0-31.0)
[2021-02-18 11:06] LABS: ALBUMIN 4.1 gm/dL (3.5-5.0); BILIRUBIN,TOTAL 0.3 mg/dL (0.0-1.0); CALCIUM 9.6 mg/dL (8.4-10.2); CREATININE, serum 0.62 (0.52-1.25); POTASSIUM 4.6 mmol/L (3.4-5.0)
[2021-02-18 11:26] LABS: EOSINOPHIL 4 % (0-4); LYMPHOCYTE 92 % (20.0-51.0); NEUTROPHILS 4 % (42.0-75.2); PLATELET ESTIMATE DECREASED (NORMAL); SCHISTOCYTES 1+; TEAR DROP CELLS 2+
[2021-02-18 11:27] LABS: ANISOCYTOSIS 1+
[2021-02-25 11:06] VITALS: BP 86/61; PULSE 94; TEMP 98.3
[2021-02-25 11:11] LABS: HEMATOCRIT 28.5 % (37.0-47.0); HEMOGLOBIN 9.5 g/dl (12.5-16.0); MEAN CELL VOLUME 106 fl (80.0-100.0); MEAN CORPUSCULAR HEMOGLOBIN 35 pg (27.0-31.0); MEAN CORPUSCULAR HGB CONC 33 g/dl (33.0-37.0); PLATELET COUNT 55 K/mm3 (130-400); REDCELL DISTRIBUTION WIDTH-CV 18.5 % (11.5-14.5)
[2021-02-25 11:18] LABS: ALBUMIN 4.3 gm/dL (3.5-5.0); BILIRUBIN,TOTAL 0.5 mg/dL (0.0-1.0); CALCIUM 9.8 mg/dL (8.4-10.2); CREATININE, serum 0.68 (0.52-1.25); POTASSIUM 3.9 mmol/L (3.4-5.0); TOTAL PROTEIN 7.6 gm/dL (6.4-8.2)
[2021-02-25 11:36] LABS: ANISOCYTOSIS 2+; BASOPHIL 1 % (0-2); EOSINOPHIL 1 % (0-4); LYMPHOCYTE 58 % (20.0-51.0); NEUTROPHILS 29 % (42.0-75.2); PLATELET ESTIMATE DECREASED (NORMAL)
[2021-02-25 11:38] LABS: OVALOCYTES 1+; TEAR DROP CELLS 1+
[2021-03-04 09:58] VITALS: BP 108/69; PULSE 64; TEMP 97.8
[2021-03-04 10:10] LABS: MEAN CELL VOLUME 108 fl (80.0-100.0); MEAN CORPUSCULAR HGB CONC 34 g/dl (33.0-37.0); RED BLOOD COUNT 2.25 M/mm3 (4.10-5.30); REDCELL DISTRIBUTION WIDTH-CV 18.5 % (11.5-14.5)
[2021-03-04 10:11] LABS: ALBUMIN 4.2 gm/dL (3.5-5.0); BILIRUBIN,TOTAL 0.2 mg/dL (0.0-1.0); CALCIUM 9.4 mg/dL (8.4-10.2); CREATININE, serum 0.6 (0.52-1.25); POTASSIUM 4.6 mmol/L (3.4-5.0); TOTAL PROTEIN 7.1 gm/dL (6.4-8.2)
[2021-03-04 10:14] LABS: HEMATOCRIT 24.2 % (37.0-47.0); HEMOGLOBIN 8.1 g/dl (12.5-16.0); MEAN CORPUSCULAR HEMOGLOBIN 36 pg (27.0-31.0)
[2021-03-04 10:19] LABS: PLATELET COUNT 27 K/mm3 (130-400)
[2021-03-04 10:55] LABS: BAND 16 % (0-10); BASOPHIL 1 % (0-2); LYMPHOCYTE 20 % (20.0-51.0); NEUTROPHILS 61 % (42.0-75.2)
[2021-03-04 10:56] LABS: ANISOCYTOSIS 1+; HYPOCHROMIA 1+; PLATELET ESTIMATE DECREASED (NORMAL); SCHISTOCYTES 1+; TEAR DROP CELLS 1+
[2021-03-06 11:11] VITALS: BP 117/69; PULSE 88; TEMP 97.9
[2021-03-06 11:11] LABS: MEAN CELL VOLUME 108 fl (80.0-100.0); MEAN CORPUSCULAR HGB CONC 33 g/dl (33.0-37.0); RED BLOOD COUNT 2.14 M/mm3 (4.10-5.30); REDCELL DISTRIBUTION WIDTH-CV 18.4 % (11.5-14.5)
[2021-03-06 11:15] LABS: HEMATOCRIT 23.2 % (37.0-47.0); HEMOGLOBIN 7.7 g/dl (12.5-16.0); MEAN CORPUSCULAR HEMOGLOBIN 36 pg (27.0-31.0)
[2021-03-06 11:25] LABS: PLATELET COUNT 21 K/mm3 (130-400)
[2021-03-06 11:55] LABS: ANISOCYTOSIS 2+; BAND 4 % (0-10); LYMPHOCYTE 37 % (20.0-51.0); NEUTROPHILS 59 % (42.0-75.2); PLATELET ESTIMATE DECREASED (NORMAL); SCHISTOCYTES 1+
[2021-03-06 11:56] LABS: OVALOCYTES 2+; TEAR DROP CELLS 1+
[2021-03-07 15:49] VITALS: BP 104/63; PULSE 66; TEMP 98.3
[2021-03-07 16:10] VITALS: BP 108/78; PULSE 74; TEMP 98.5
[2021-03-07 16:25] VITALS: BP 123/79; PULSE 75; TEMP 198.5
[2021-03-07 16:55] VITALS: BP 113/87; PULSE 87; TEMP 98.3
[2021-03-07 17:05] VITALS: BP 124/76; PULSE 69; TEMP 98.4
[2021-03-11 11:04] VITALS: BP 95/70; PULSE 81; TEMP 98.5
[2021-03-11 11:10] LABS: MEAN CELL VOLUME 105 fl (80.0-100.0); MEAN CORPUSCULAR HGB CONC 35 g/dl (33.0-37.0); RED BLOOD COUNT 2.33 M/mm3 (4.10-5.30); REDCELL DISTRIBUTION WIDTH-CV 17.2 % (11.5-14.5)
[2021-03-11 11:19] LABS: HEMATOCRIT 24.4 % (37.0-47.0); HEMOGLOBIN 8.5 g/dl (12.5-16.0); MEAN CORPUSCULAR HEMOGLOBIN 36 pg (27.0-31.0)
[2021-03-11 11:23] LABS: PLATELET COUNT 42 K/mm3 (130-400)
[2021-03-11 13:13] LABS: ANISOCYTOSIS 2+; BAND 2 % (0-10); LYMPHOCYTE 31 % (20.0-51.0); NEUTROPHILS 64 % (42.0-75.2); OVALOCYTES 2+; PLATELET ESTIMATE DECREASED (NORMAL)
[2021-03-11 13:14] LABS: HYPOCHROMIA 2+
[2021-03-18 10:52] VITALS: BP 120/75; PULSE 89; TEMP 98.5
[2021-03-18 10:57] LABS: MEAN CELL VOLUME 107 fl (80.0-100.0); MEAN CORPUSCULAR HGB CONC 35 g/dl (33.0-37.0); REDCELL DISTRIBUTION WIDTH-CV 16.4 % (11.5-14.5)
[2021-03-18 10:59] LABS: HEMATOCRIT 22.4 % (37.0-47.0); HEMOGLOBIN 7.8 g/dl (12.5-16.0); MEAN CORPUSCULAR HEMOGLOBIN 37 pg (27.0-31.0)
[2021-03-18 11:00] LABS: PLATELET COUNT 13 K/mm3 (130-400)
[2021-03-18 11:18] LABS: EOSINOPHIL 1 % (0-4); LYMPHOCYTE 62 % (20.0-51.0); NEUTROPHILS 35 % (42.0-75.2)
[2021-03-18 11:19] LABS: ANISOCYTOSIS 1+; OVALOCYTES 1+; PLATELET ESTIMATE DECREASED (NORMAL); POIKILOCYTOSIS 1+
[2021-03-19] VITALS (14 sets, daily range): BP systolic 97–121; BP diastolic 67–88; PULSE 62–97; TEMP 98–98.3
[2021-03-25 11:15] VITALS: BP 108/75; PULSE 98; TEMP 98.5
[2021-03-25 11:39] LABS: MEAN CELL VOLUME 100 fl (80.0-100.0); MEAN CORPUSCULAR HEMOGLOBIN 34 pg (27.0-31.0); MEAN CORPUSCULAR HGB CONC 34 g/dl (33.0-37.0); RED BLOOD COUNT 3.21 M/mm3 (4.10-5.30)
[2021-03-25 11:52] LABS: ALBUMIN 4.6 gm/dL (3.5-5.0); BILIRUBIN,TOTAL 0.7 mg/dL (0.0-1.0); CALCIUM 10.2 mg/dL (8.4-10.2); CREATININE, serum 0.69 (0.52-1.25); HEMATOCRIT 32.1 % (37.0-47.0); PLATELET COUNT 13 K/mm3 (130-400); POTASSIUM 3.8 mmol/L (3.4-5.0); TOTAL PROTEIN 8.3 gm/dL (6.4-8.2)
[2021-03-25 12:01] LABS: ANISOCYTOSIS 2+; LYMPHOCYTE 63 % (20.0-51.0); NEUTROPHILS 36 % (42.0-75.2); OVALOCYTES 1+; PLATELET ESTIMATE DECREASED (NORMAL); TEAR DROP CELLS 1+
[2021-03-26 13:00] VITALS: BP 126/85; PULSE 89; TEMP 98.4
[2021-03-26 13:26] VITALS: BP 122/89; PULSE 91; TEMP 98.6
[2021-03-26 13:41] VITALS: BP 121/92; PULSE 93; TEMP 98.6
[2021-03-26 14:11] VITALS: BP 128/88; PULSE 91; TEMP 98.6
[2021-03-26 15:09] VITALS: BP 123/86; PULSE 82; TEMP 98.6
[2021-04-01 09:27] LABS: HEMOGLOBIN 10.2 g/dl (12.5-16.0); MEAN CELL VOLUME 101 fl (80.0-100.0); MEAN CORPUSCULAR HEMOGLOBIN 34 pg (27.0-31.0); MEAN CORPUSCULAR HGB CONC 34 g/dl (33.0-37.0); RED BLOOD COUNT 2.98 M/mm3 (4.10-5.30); REDCELL DISTRIBUTION WIDTH-CV 19.4 % (11.5-14.5)
[2021-04-01 09:32] LABS: HEMATOCRIT 30.1 % (37.0-47.0)
[2021-04-01 09:34] LABS: PLATELET COUNT 27 K/mm3 (130-400)
[2021-04-01 09:57] VITALS: BP 136/82; PULSE 97; TEMP 98.2
[2021-04-01 09:59] LABS: BAND 2 % (0-10); BASOPHIL 1 % (0-2); EOSINOPHIL 2 % (0-4); NEUTROPHILS 27 % (42.0-75.2); PLATELET ESTIMATE DECREASED (NORMAL)
[2021-04-01 10:00] LABS: LYMPHOCYTE 68 % (20.0-51.0)
[2021-04-08 10:52] LABS: MEAN CELL VOLUME 100 fl (80.0-100.0); MEAN CORPUSCULAR HGB CONC 35 g/dl (33.0-37.0); RED BLOOD COUNT 2.64 M/mm3 (4.10-5.30); REDCELL DISTRIBUTION WIDTH-CV 19.2 % (11.5-14.5)
[2021-04-08 10:59] LABS: HEMATOCRIT 26.4 % (37.0-47.0); HEMOGLOBIN 9.2 g/dl (12.5-16.0); MEAN CORPUSCULAR HEMOGLOBIN 35 pg (27.0-31.0)
[2021-04-08 11:01] LABS: PLATELET COUNT 21 K/mm3 (130-400)
[2021-04-08 11:31] VITALS: BP 102/75; PULSE 87; TEMP 98.1
[2021-04-08 11:33] LABS: BASOPHIL 1 % (0-2); EOSINOPHIL 3 % (0-4); LYMPHOCYTE 62 % (20.0-51.0); NEUTROPHILS 29 % (42.0-75.2); PLATELET ESTIMATE DECREASED (NORMAL)
[2021-04-08 11:35] LABS: ANISOCYTOSIS 2+; TEAR DROP CELLS 1+
[2021-04-10 10:47] VITALS: BP 112/61; PULSE 86; TEMP 97.7
[2021-04-10 10:49] LABS: MEAN CELL VOLUME 101 fl (80.0-100.0); MEAN CORPUSCULAR HGB CONC 35 g/dl (33.0-37.0); RED BLOOD COUNT 2.56 M/mm3 (4.10-5.30); REDCELL DISTRIBUTION WIDTH-CV 19.9 % (11.5-14.5)
[2021-04-10 10:53] LABS: HEMATOCRIT 25.9 % (37.0-47.0); MEAN CORPUSCULAR HEMOGLOBIN 35 pg (27.0-31.0)
[2021-04-10 10:55] LABS: PLATELET COUNT 18 K/mm3 (130-400)
[2021-04-10 11:07] LABS: BAND 2 % (0-10); EOSINOPHIL 3 % (0-4); LYMPHOCYTE 58 % (20.0-51.0); NEUTROPHILS 35 % (42.0-75.2); PLATELET ESTIMATE DECREASED (NORMAL)
[2021-04-10 11:08] LABS: OVALOCYTES 1+; TEAR DROP CELLS 1+
[2021-04-10 11:09] LABS: ANISOCYTOSIS 2+
[2021-04-10 11:10] LABS: MICROCYTOSIS 1+
[2021-04-11 13:27] VITALS: BP 101/61; PULSE 96; TEMP 98.1
[2021-04-11 13:50] VITALS: BP 105/70; PULSE 93; TEMP 98.2
[2021-04-11 14:05] VITALS: BP 107/69; PULSE 88; TEMP 98.1
[2021-04-11 14:30] VITALS: BP 111/65; PULSE 90; TEMP 98.1
--- NOTE | 2021-04-11 14:46 | NUR ---
Unit complete at 1430, PICC flushed with NS. Pt walked down to her private car at 1440. Denied any c/o at time of discharge.
[2021-04-15 10:38] VITALS: BP 106/69; PULSE 95; TEMP 97.7
[2021-04-15 11:05] LABS: MEAN CELL VOLUME 102 fl (80.0-100.0); MEAN CORPUSCULAR HGB CONC 35 g/dl (33.0-37.0); RED BLOOD COUNT 2.61 M/mm3 (4.10-5.30); REDCELL DISTRIBUTION WIDTH-CV 20.3 % (11.5-14.5)
[2021-04-15 11:07] LABS: HEMATOCRIT 26.6 % (37.0-47.0); HEMOGLOBIN 9.2 g/dl (12.5-16.0); MEAN CORPUSCULAR HEMOGLOBIN 35 pg (27.0-31.0)
[2021-04-15 11:09] LABS: PLATELET COUNT 24 K/mm3 (130-400)
[2021-04-15 11:27] LABS: ANISOCYTOSIS 3+; BASOPHIL 1 % (0-2); EOSINOPHIL 2 % (0-4); LYMPHOCYTE 58 % (20.0-51.0); NEUTROPHILS 34 % (42.0-75.2); PLATELET ESTIMATE DECREASED (NORMAL)
[2021-04-15 11:28] LABS: OVALOCYTES 1+; POIKILOCYTOSIS 1+; TEAR DROP CELLS 1+
[2021-04-17 11:21] LABS: MEAN CELL VOLUME 102 fl (80.0-100.0); MEAN CORPUSCULAR HGB CONC 35 g/dl (33.0-37.0); RED BLOOD COUNT 2.55 M/mm3 (4.10-5.30); REDCELL DISTRIBUTION WIDTH-CV 20.2 % (11.5-14.5)
[2021-04-17 11:23] LABS: HEMATOCRIT 26.1 % (37.0-47.0); MEAN CORPUSCULAR HEMOGLOBIN 35 pg (27.0-31.0)
[2021-04-17 11:24] LABS: PLATELET COUNT 18 K/mm3 (130-400)
[2021-04-17 11:46] LABS: BASOPHIL 1 % (0-2); EOSINOPHIL 2 % (0-4); LYMPHOCYTE 48 % (20.0-51.0); NEUTROPHILS 48 % (42.0-75.2)
[2021-04-17 11:47] LABS: ANISOCYTOSIS 3+; PLATELET ESTIMATE DECREASED (NORMAL)
[2021-04-18 14:35] VITALS: BP 113/74; PULSE 87; TEMP 97.8
[2021-04-18 14:50] VITALS: BP 104/72; PULSE 90; TEMP 97.9
[2021-04-18 15:20] VITALS: BP 105/73; PULSE 88; TEMP 97.9
[2021-04-18 16:05] VITALS: BP 112/74; PULSE 82; TEMP 97.9
[2021-04-22 10:27] VITALS: BP 134/83; PULSE 84; TEMP 98.1
[2021-04-22 11:00] LABS: MEAN CELL VOLUME 106 fl (80.0-100.0); MEAN CORPUSCULAR HGB CONC 34 g/dl (33.0-37.0); RED BLOOD COUNT 2.14 M/mm3 (4.10-5.30)
[2021-04-22 11:04] LABS: HEMATOCRIT 22.7 % (37.0-47.0); HEMOGLOBIN 7.6 g/dl (12.5-16.0); MEAN CORPUSCULAR HEMOGLOBIN 36 pg (27.0-31.0)
[2021-04-22 11:07] LABS: ALBUMIN 4.2 gm/dL (3.5-5.0); BILIRUBIN,TOTAL 0.6 mg/dL (0.0-1.0); CALCIUM 9.6 mg/dL (8.4-10.2); CREATININE, serum 0.54 (0.52-1.25); PLATELET COUNT 16 K/mm3 (130-400); POTASSIUM 3.6 mmol/L (3.4-5.0); TOTAL PROTEIN 7.4 gm/dL (6.4-8.2)
[2021-04-22 11:50] LABS: BAND 6 % (0-10); EOSINOPHIL 1 % (0-4); LYMPHOCYTE 51 % (20.0-51.0); NEUTROPHILS 40 % (42.0-75.2); PLATELET ESTIMATE DECREASED (NORMAL)
[2021-04-22 11:52] LABS: ANISOCYTOSIS 2+; OVALOCYTES 2+; SCHISTOCYTES 1+; TEAR DROP CELLS 1+
[2021-04-24] VITALS (14 sets, daily range): BP systolic 99–122; BP diastolic 65–676; PULSE 69–79; TEMP 97.7–98.6
[2021-04-24 16:38] LABS: MEAN CORPUSCULAR HGB CONC 34 g/dl (33.0-37.0); MEAN PLATELET VOLUME 12.1 fl (7.4-10.4); RED BLOOD COUNT 2.74 M/mm3 (4.10-5.30); REDCELL DISTRIBUTION WIDTH-CV 21.5 % (11.5-14.5)
[2021-04-24 16:54] LABS: HEMATOCRIT 26.7 % (37.0-47.0); HEMOGLOBIN 9.1 g/dl (12.5-16.0); MEAN CELL VOLUME 97 fl (80.0-100.0); MEAN CORPUSCULAR HEMOGLOBIN 33 pg (27.0-31.0)
[2021-04-24 16:56] LABS: PLATELET COUNT 20 K/mm3 (130-400)
[2021-04-24 18:15] LABS: ANISOCYTOSIS 2+; LYMPHOCYTE 34 % (20.0-51.0); NEUTROPHILS 66 % (42.0-75.2); PLATELET ESTIMATE DECREASED (NORMAL)
[2021-04-24 18:16] LABS: SCHISTOCYTES 1+; TEAR DROP CELLS 1+
[2021-04-24 18:17] LABS: OVALOCYTES 1+
[2021-04-25 08:03] LABS: PATHOLOGY DIFF REVIEW OK
[2021-04-29 10:26] VITALS: BP 117/81; PULSE 92; TEMP 97.6
[2021-04-29 10:39] LABS: HEMOGLOBIN 10.7 g/dl (12.5-16.0); MEAN CELL VOLUME 95 fl (80.0-100.0); MEAN CORPUSCULAR HEMOGLOBIN 33 pg (27.0-31.0); MEAN CORPUSCULAR HGB CONC 35 g/dl (33.0-37.0); RED BLOOD COUNT 3.23 M/mm3 (4.10-5.30); REDCELL DISTRIBUTION WIDTH-CV 22.1 % (11.5-14.5)
[2021-04-29 10:51] LABS: HEMATOCRIT 30.8 % (37.0-47.0)
[2021-04-29 10:52] LABS: PLATELET COUNT 8 K/mm3 (130-400)
[2021-04-29 11:32] LABS: EOSINOPHIL 2 % (0-4); LYMPHOCYTE 53 % (20.0-51.0); NEUTROPHILS 43 % (42.0-75.2); PLATELET ESTIMATE DECREASED (NORMAL)
[2021-04-29 11:33] LABS: OVALOCYTES 1+; SCHISTOCYTES 1+; TEAR DROP CELLS 1+
[2021-04-29 11:34] LABS: ANISOCYTOSIS 2+
[2021-04-30 13:20] VITALS: BP 105/76; PULSE 97; TEMP 97.7
[2021-04-30 13:35] VITALS: BP 105/72; PULSE 94; TEMP 98.6
[2021-04-30 13:50] VITALS: BP 104/78; PULSE 93; TEMP 98.6
[2021-04-30 14:40] VITALS: BP 97/66; PULSE 78; TEMP 98.4
[2021-05-01 10:56] VITALS: BP 98/69; PULSE 85; TEMP 98.3
[2021-05-01 11:12] LABS: MEAN CELL VOLUME 98 fl (80.0-100.0); MEAN CORPUSCULAR HGB CONC 34 g/dl (33.0-37.0); MEAN PLATELET VOLUME 12.9 fl (7.4-10.4); RED BLOOD COUNT 2.88 M/mm3 (4.10-5.30); REDCELL DISTRIBUTION WIDTH-CV 22.5 % (11.5-14.5)
[2021-05-01 11:22] LABS: HEMATOCRIT 28.1 % (37.0-47.0); HEMOGLOBIN 9.6 g/dl (12.5-16.0); MEAN CORPUSCULAR HEMOGLOBIN 33 pg (27.0-31.0)
[2021-05-01 11:23] LABS: PLATELET COUNT 23 K/mm3 (130-400)
[2021-05-01 11:29] LABS: ANISOCYTOSIS 4+; EOSINOPHIL 1 % (0-4); LYMPHOCYTE 41 % (20.0-51.0); NEUTROPHILS 51 % (42.0-75.2); PLATELET ESTIMATE DECREASED (NORMAL)
[2021-05-06 10:41] VITALS: BP 110/69; PULSE 71; TEMP 98.1
[2021-05-06 10:54] LABS: MEAN CELL VOLUME 99 fl (80.0-100.0); MEAN CORPUSCULAR HGB CONC 34 g/dl (33.0-37.0); RED BLOOD COUNT 2.59 M/mm3 (4.10-5.30); REDCELL DISTRIBUTION WIDTH-CV 22.7 % (11.5-14.5)
[2021-05-06 11:17] LABS: HEMATOCRIT 25.6 % (37.0-47.0); HEMOGLOBIN 8.6 g/dl (12.5-16.0); MEAN CORPUSCULAR HEMOGLOBIN 33 pg (27.0-31.0)
[2021-05-06 11:18] LABS: PLATELET COUNT 6 K/mm3 (130-400)
[2021-05-06 12:19] LABS: BAND 4 % (0-10); EOSINOPHIL 1 % (0-4); LYMPHOCYTE 53 % (20.0-51.0); NEUTROPHILS 39 % (42.0-75.2); PLATELET ESTIMATE DECREASED (NORMAL)
[2021-05-06 12:20] LABS: ANISOCYTOSIS 3+; SCHISTOCYTES 1+
[2021-05-06 12:21] LABS: OVALOCYTES 1+
[2021-05-07 13:58] VITALS: BP 110/78; PULSE 91; TEMP 97.1
[2021-05-07 14:35] VITALS: BP 113/70; PULSE 86; TEMP 97.8
[2021-05-07 14:50] VITALS: BP 107/79; PULSE 88; TEMP 98.2
[2021-05-07 15:20] VITALS: BP 111/76; PULSE 85; TEMP 98.3
[2021-05-07 15:40] VITALS: BP 115/75; PULSE 89; TEMP 97.4
--- NOTE | 2021-05-07 16:00 | NUR ---
PT TOLERATED PLATELET INFUSION WITH NO PROBLEM, SHE IS AMB TO EXIT WITH STEADY GAIT, REFUSES OFFER OF RIDE IN WHEELCHAIR TODAY.
[2021-05-08 11:13] VITALS: BP 107/71; PULSE 78; TEMP 98.4
[2021-05-08 12:11] LABS: MEAN CELL VOLUME 99 fl (80.0-100.0); MEAN CORPUSCULAR HGB CONC 34 g/dl (33.0-37.0); RED BLOOD COUNT 2.38 M/mm3 (4.10-5.30); REDCELL DISTRIBUTION WIDTH-CV 22.8 % (11.5-14.5)
[2021-05-08 12:17] LABS: HEMATOCRIT 23.6 % (37.0-47.0); HEMOGLOBIN 8.1 g/dl (12.5-16.0); MEAN CORPUSCULAR HEMOGLOBIN 34 pg (27.0-31.0)
[2021-05-08 12:18] LABS: PLATELET COUNT 10 K/mm3 (130-400)
[2021-05-08 12:48] LABS: EOSINOPHIL 2 % (0-4); LYMPHOCYTE 31 % (20.0-51.0); NEUTROPHILS 63 % (42.0-75.2)
[2021-05-08 12:51] LABS: ANISOCYTOSIS 3+; PLATELET ESTIMATE DECREASED (NORMAL)
[~2021-05-09] VITALS: Ht 157.5 cm; Wt 62.9 kg
[~2021-05-09 13:00] MED LIST changes: +MACROBID 1100 MG/CAP PO; +NOVOLOG FLEX100 U/ML SQ; +OMNICEF 300MG300 MG PO
[2021-05-09 13:20] VITALS: BP 112/76; PULSE 76; TEMP 98.4
[2021-05-09 13:23] VITALS: BP 112/76; PULSE 76; TEMP 98.4
--- NOTE | 2021-05-09 13:34 | NUR ---
Remained with pt for first 15 minutes. Pt denes any s/sx of a transfusion reaction. Verified with 2nd RN. Pt doing well, will continue to monitor.
[2021-05-09 13:35] VITALS: BP 134/85; PULSE 78; TEMP 98
[2021-05-09 14:05] VITALS: BP 115/76; PULSE 78
[2021-05-09 15:05] VITALS: BP 118/79; PULSE 73; TEMP 97.9
[2021-05-09 15:18] VITALS: BP 117/69; PULSE 78; TEMP 97.9
[2021-05-17] MEDS ORDERED: FLEXERIL5 MG PO (13:28)
[2021-06-10] MEDS ORDERED: NEURONTIN300 MG/CAP PO (11:08)
[2021-08-07] MEDS ORDERED: MAGIC MOUTH PO (11:04)
== END 2021-05-12 | disposition home or self-care (01) ==
LOC: EUO
PROVIDERS: Internal Medicine Medical Oncology
DX: D46.21 Refractory anemia with excess of blasts 1 (principal); Z95.9 Presence of cardiac and vascular implant and graft, unspecified
CPT/HCPCS: J7050; P9035; P9037; P9040

== ENCOUNTER 2021-05-16 10:51 | Emergency (ER) | payer MEDICARE, OTHER ==
[~2021-05-16] VITALS: Ht 160 cm; Wt 63.6 kg
[2021-05-16 11:02] VITALS: TEMP 97.2
[2021-05-16] MEDS ORDERED: LIDODERM 5% PATC1 EA TP (12:20)
[2021-05-16 12:49] VITALS: BP 116/78; PULSE 99
[2021-05-17] MEDS ORDERED: FLEXERIL5 MG PO (13:28)
[2021-06-10] MEDS ORDERED: NEURONTIN300 MG/CAP PO (11:08)
[2021-08-07] MEDS ORDERED: MAGIC MOUTH PO (11:04)
== END 2021-05-16 12:50 | disposition home or self-care (01) ==
LOC: COL.ER 10:51
DX: M25.552 Pain in left hip (principal); E87.2 Acidosis; D61.818 Other pancytopenia; M10.071 Idiopathic gout, right ankle and foot; Z79.899 Other long term (current) drug therapy

== ENCOUNTER 2021-06-19 11:00 | Outpatient (RCR) | payer MEDICARE, OTHER ==
[2021-05-13 11:13] VITALS: BP 104/73; PULSE 88; TEMP 98.5
[2021-05-13 11:25] LABS: MEAN CELL VOLUME 98 fl (80.0-100.0); MEAN CORPUSCULAR HGB CONC 35 g/dl (33.0-37.0); RED BLOOD COUNT 2.49 M/mm3 (4.10-5.30); REDCELL DISTRIBUTION WIDTH-CV 22.5 % (11.5-14.5)
[2021-05-13 11:32] LABS: HEMATOCRIT 24.3 % (37.0-47.0); HEMOGLOBIN 8.5 g/dl (12.5-16.0); MEAN CORPUSCULAR HEMOGLOBIN 34 pg (27.0-31.0)
[2021-05-13 11:33] LABS: PLATELET COUNT 5 K/mm3 (130-400)
[2021-05-13 12:05] LABS: LYMPHOCYTE 44 % (20.0-51.0); NEUTROPHILS 48 % (42.0-75.2)
[2021-05-13 12:06] LABS: ANISOCYTOSIS 3+; PLATELET ESTIMATE DECREASED (NORMAL)
[2021-05-14] VITALS (8 sets, daily range): BP systolic 92–103; BP diastolic 61–72; PULSE 86–98; TEMP 98.5–99
[2021-05-16 10:51] LABS: MEAN CELL VOLUME 97 fl (80.0-100.0); MEAN CORPUSCULAR HGB CONC 36 g/dl (33.0-37.0); RED BLOOD COUNT 2.06 M/mm3 (4.10-5.30); REDCELL DISTRIBUTION WIDTH-CV 22.9 % (11.5-14.5)
[2021-05-16 10:57] LABS: HEMOGLOBIN 7.1 g/dl (12.5-16.0); MEAN CORPUSCULAR HEMOGLOBIN 34 pg (27.0-31.0)
[2021-05-16 10:58] LABS: PLATELET COUNT 17 K/mm3 (130-400)
[2021-05-16 11:22] VITALS: BP 101/69; PULSE 112; TEMP 99.2
[2021-05-16 11:29] LABS: BAND 4 % (0-10); LYMPHOCYTE 30 % (20.0-51.0); NEUTROPHILS 62 % (42.0-75.2); PLATELET ESTIMATE DECREASED (NORMAL)
[2021-05-16 11:37] LABS: ANISOCYTOSIS 2+
[2021-05-17] VITALS (12 sets, daily range): BP systolic 87–98; BP diastolic 57–69; PULSE 67–103; TEMP 97.8–98.8
--- NOTE | 2021-05-17 16:48 | NUR ---
Pt finished 1st unit of PRBCs at this time and began 2nd unit of PRBCs. Verified with 2nd RN. Remained with pt for first 15 minutes on first unit and will remain with pt for first 15 mintues on 2nd unit, pt denies any s/sx of a transfusion reaction and educated on them both units. Will monitor.
--- NOTE | 2021-05-17 18:58 | NUR ---
Report given to Valentina, nightshift nurse who will resume care.
--- NOTE | 2021-05-17 19:30 | NUR ---
BLOOD TRANSFUSION COMPLETE. FLUSHED PICC LINE WITH 20CC NS. PT TOLERATED TRANSFUSION WITHOUT PROBLEM.
--- NOTE | 2021-05-17 19:40 | NUR ---
PT DISCHARGED VIA W/C TO PRIVATE CAR. PERSONAL BELONGINGS SENT WITH PT, ACCOMPANIED BY DAUGHTER AND SURGICAL STAFF.
[2021-05-20 11:22] LABS: MEAN CELL VOLUME 93 fl (80.0-100.0); MEAN CORPUSCULAR HGB CONC 35 g/dl (33.0-37.0); RED BLOOD COUNT 2.83 M/mm3 (4.10-5.30); REDCELL DISTRIBUTION WIDTH-CV 21.2 % (11.5-14.5)
[2021-05-20 11:36] LABS: HEMATOCRIT 26.2 % (37.0-47.0); HEMOGLOBIN 9.1 g/dl (12.5-16.0); MEAN CORPUSCULAR HEMOGLOBIN 32 pg (27.0-31.0)
[2021-05-20 11:39] LABS: PLATELET COUNT 3 K/mm3 (130-400)
[2021-05-20 12:53] LABS: BAND 7 % (0-10); EOSINOPHIL 1 % (0-4); LYMPHOCYTE 40 % (20.0-51.0); NEUTROPHILS 52 % (42.0-75.2); PLATELET ESTIMATE DECREASED (NORMAL); TEAR DROP CELLS 1+
[2021-05-21] VITALS (8 sets, daily range): BP systolic 94–107; BP diastolic 69–75; PULSE 89–97; TEMP 97.4–98
--- NOTE | 2021-05-21 16:45 | NUR ---
PT tolerated platelet infusions without any evidence of adverse or allergic reactions. pt was able to eat some lunch during her stay. At end of transfusion, both lumens of picc flushed with ns 20 cc. pt escorted to exit via wheelchair.
[2021-05-22 11:09] LABS: MEAN CELL VOLUME 94 fl (80.0-100.0); MEAN CORPUSCULAR HGB CONC 34 g/dl (33.0-37.0); MEAN PLATELET VOLUME 8.8 fl (7.4-10.4); RED BLOOD COUNT 2.59 M/mm3 (4.10-5.30); REDCELL DISTRIBUTION WIDTH-CV 21.1 % (11.5-14.5)
[2021-05-22 11:12] LABS: HEMATOCRIT 24.3 % (37.0-47.0); HEMOGLOBIN 8.2 g/dl (12.5-16.0); MEAN CORPUSCULAR HEMOGLOBIN 32 pg (27.0-31.0)
[2021-05-22 11:13] LABS: PLATELET COUNT 26 K/mm3 (130-400)
[2021-05-22 11:18] VITALS: BP 101/73; PULSE 92; TEMP 98.1
[2021-05-22 11:57] LABS: EOSINOPHIL 2 % (0-4); LYMPHOCYTE 44 % (20.0-51.0); NEUTROPHILS 48 % (42.0-75.2); PLATELET ESTIMATE DECREASED (NORMAL)
[2021-05-22 11:58] LABS: ANISOCYTOSIS 2+
[2021-05-27 10:48] LABS: HEMATOCRIT 23.3 % (37.0-47.0); HEMOGLOBIN 7.9 g/dl (12.5-16.0); MEAN CELL VOLUME 94 fl (80.0-100.0); MEAN CORPUSCULAR HEMOGLOBIN 32 pg (27.0-31.0); MEAN CORPUSCULAR HGB CONC 34 g/dl (33.0-37.0); RED BLOOD COUNT 2.47 M/mm3 (4.10-5.30); REDCELL DISTRIBUTION WIDTH-CV 21.4 % (11.5-14.5)
[2021-05-27 10:49] LABS: PLATELET COUNT 6 K/mm3 (130-400)
[2021-05-27 10:52] VITALS: BP 135/88; PULSE 60; TEMP 97.9
[2021-05-27 11:18] LABS: ANISOCYTOSIS 4+; BAND 1 % (0-10); LYMPHOCYTE 50 % (20.0-51.0); NEUTROPHILS 45 % (42.0-75.2); PLATELET ESTIMATE DECREASED (NORMAL)
[2021-05-28] VITALS (10 sets, daily range): BP systolic 93–113; BP diastolic 63–71; PULSE 82–96; TEMP 98.4–98.8
[2021-05-29 11:11] LABS: MEAN CELL VOLUME 96 fl (80.0-100.0); MEAN CORPUSCULAR HGB CONC 34 g/dl (33.0-37.0); MEAN PLATELET VOLUME 10.6 fl (7.4-10.4); RED BLOOD COUNT 2.13 M/mm3 (4.10-5.30); REDCELL DISTRIBUTION WIDTH-CV 21.4 % (11.5-14.5)
[2021-05-29 11:14] LABS: HEMATOCRIT 20.4 % (37.0-47.0); HEMOGLOBIN 6.9 g/dl (12.5-16.0); MEAN CORPUSCULAR HEMOGLOBIN 32 pg (27.0-31.0); PLATELET COUNT 37 K/mm3 (130-400)
[2021-05-29 11:30] VITALS: BP 119/70; PULSE 98; TEMP 98
[2021-05-29 11:42] LABS: ANISOCYTOSIS 2+; BAND 5 % (0-10); BASOPHIL 1 % (0-2); EOSINOPHIL 1 % (0-4); LYMPHOCYTE 40 % (20.0-51.0); NEUTROPHILS 53 % (42.0-75.2); OVALOCYTES 2+; PLATELET ESTIMATE DECREASED (NORMAL); TEAR DROP CELLS 1+
[2021-05-30] VITALS (8 sets, daily range): BP systolic 101–120; BP diastolic 69–83; PULSE 77–91; TEMP 97.9–98.7
[2021-06-03 10:57] VITALS: BP 122/78; PULSE 98; TEMP 98.3
[2021-06-03 11:19] LABS: MEAN CELL VOLUME 91 fl (80.0-100.0); MEAN CORPUSCULAR HGB CONC 35 g/dl (33.0-37.0); RED BLOOD COUNT 2.92 M/mm3 (4.10-5.30); REDCELL DISTRIBUTION WIDTH-CV 19.1 % (11.5-14.5)
[2021-06-03 11:21] LABS: HEMATOCRIT 26.5 % (37.0-47.0); HEMOGLOBIN 9.2 g/dl (12.5-16.0); MEAN CORPUSCULAR HEMOGLOBIN 32 pg (27.0-31.0)
[2021-06-03 11:27] LABS: PLATELET COUNT 4 K/mm3 (130-400)
[2021-06-03 11:39] LABS: BAND 2 % (0-10); LYMPHOCYTE 48 % (20.0-51.0); NEUTROPHILS 49 % (42.0-75.2); PLATELET ESTIMATE DECREASED (NORMAL)
[2021-06-03 11:40] LABS: OVALOCYTES 1+
[2021-06-03 11:41] LABS: ANISOCYTOSIS 1+; TEAR DROP CELLS 1+
[2021-06-04] VITALS (10 sets, daily range): BP systolic 87–123; BP diastolic 59–84; PULSE 93–103; TEMP 98.3–98.6
[2021-06-05 11:05] LABS: HEMATOCRIT 22.3 % (37.0-47.0); HEMOGLOBIN 7.6 g/dl (12.5-16.0); MEAN CELL VOLUME 92 fl (80.0-100.0); MEAN CORPUSCULAR HEMOGLOBIN 31 pg (27.0-31.0); MEAN CORPUSCULAR HGB CONC 34 g/dl (33.0-37.0); MEAN PLATELET VOLUME 9.6 fl (7.4-10.4); RED BLOOD COUNT 2.42 M/mm3 (4.10-5.30); REDCELL DISTRIBUTION WIDTH-CV 18.6 % (11.5-14.5)
[2021-06-05 11:07] LABS: PLATELET COUNT 21 K/mm3 (130-400)
[2021-06-05 11:26] LABS: BAND 2 % (0-10); EOSINOPHIL 3 % (0-4); LYMPHOCYTE 55 % (20.0-51.0); NEUTROPHILS 38 % (42.0-75.2)
[2021-06-05 11:27] LABS: ANISOCYTOSIS 1+; PLATELET ESTIMATE DECREASED (NORMAL)
[2021-06-05 11:55] VITALS: BP 102/62; PULSE 99; TEMP 98
[2021-06-06] VITALS (9 sets, daily range): BP systolic 102–112; BP diastolic 68–84; PULSE 78–88; TEMP 97.5–98.6
[2021-06-10 11:00] VITALS: BP 110/77; PULSE 103; TEMP 100
[2021-06-10 11:27] LABS: MEAN CELL VOLUME 92 fl (80.0-100.0); MEAN CORPUSCULAR HGB CONC 34 g/dl (33.0-37.0); RED BLOOD COUNT 2.76 M/mm3 (4.10-5.30); REDCELL DISTRIBUTION WIDTH-CV 17.1 % (11.5-14.5)
[2021-06-10 11:29] LABS: HEMATOCRIT 25.5 % (37.0-47.0); HEMOGLOBIN 8.6 g/dl (12.5-16.0); MEAN CORPUSCULAR HEMOGLOBIN 31 pg (27.0-31.0)
[2021-06-10 11:30] LABS: PLATELET COUNT 2 K/mm3 (130-400)
[2021-06-10 12:24] LABS: BAND 10 % (0-10); EOSINOPHIL 2 % (0-4); LYMPHOCYTE 38 % (20.0-51.0); NEUTROPHILS 47 % (42.0-75.2); PLATELET ESTIMATE DECREASED (NORMAL)
[2021-06-10 12:25] LABS: ANISOCYTOSIS 1+; OVALOCYTES 1+; TEAR DROP CELLS 1+
--- NOTE | 2021-06-10 14:15 | NUR ---
PT RETURNED TO [facility] UNIT FOR 1 UNIT OF IRRIDIATED PLATELETS TODAY PER ORDER. RESTS IN BED, TEMPT AT 100 DEGREES UNCHANGED FROM THIS AM
[2021-06-10 14:30] VITALS: BP 104/69; PULSE 97; TEMP 100
[2021-06-10 14:50] VITALS: BP 118/67; PULSE 90; TEMP 99
[2021-06-10 15:05] VITALS: BP 102/73; PULSE 92; TEMP 99.3
[2021-06-10 15:35] VITALS: BP 103/70; PULSE 92; TEMP 99.3
[2021-06-10 15:51] VITALS: BP 105/69; PULSE 96; TEMP 99.3
--- NOTE | 2021-06-10 16:18 | NUR ---
TRANSFUSION COMPLETED, WILL RETURN TOMORROW FOR 2ND UNIT OF PLATELETS. PICC FLUSHED AND PT TO CAR WITH DAUGHTER VIA W/C
[2021-06-11 13:12] VITALS: BP 96/67; PULSE 97; TEMP 99.1
[2021-06-11 13:25] VITALS: BP 106/69; PULSE 94; TEMP 98.8
[2021-06-11 13:41] VITALS: BP 105/94; PULSE 93; TEMP 98.8
[2021-06-11 14:25] VITALS: BP 128/85; PULSE 91; TEMP 98.8
[2021-06-11 15:00] VITALS: BP 99/66; PULSE 87; TEMP 98.8
[2021-06-12 11:18] LABS: MEAN CELL VOLUME 92 fl (80.0-100.0); MEAN CORPUSCULAR HGB CONC 34 g/dl (33.0-37.0); MEAN PLATELET VOLUME 10.5 fl (7.4-10.4); RED BLOOD COUNT 2.51 M/mm3 (4.10-5.30); REDCELL DISTRIBUTION WIDTH-CV 17.3 % (11.5-14.5)
[2021-06-12 11:19] LABS: HEMOGLOBIN 7.9 g/dl (12.5-16.0); MEAN CORPUSCULAR HEMOGLOBIN 31 pg (27.0-31.0)
[2021-06-12 11:20] LABS: PLATELET COUNT 44 K/mm3 (130-400)
[2021-06-12 11:29] LABS: ANISOCYTOSIS 1+; BAND 8 % (0-10); LYMPHOCYTE 28 % (20.0-51.0); NEUTROPHILS 60 % (42.0-75.2); PLATELET ESTIMATE DECREASED (NORMAL)
[2021-06-12 11:35] VITALS: BP 92/63; PULSE 91; TEMP 97.5
[2021-06-17 11:08] VITALS: BP 105/68; PULSE 94; TEMP 98.9
[2021-06-17 11:18] LABS: MEAN CELL VOLUME 92 fl (80.0-100.0); MEAN CORPUSCULAR HGB CONC 35 g/dl (33.0-37.0); MEAN PLATELET VOLUME 9.2 fl (7.4-10.4); RED BLOOD COUNT 2.24 M/mm3 (4.10-5.30); REDCELL DISTRIBUTION WIDTH-CV 17.5 % (11.5-14.5)
[2021-06-17 11:39] LABS: HEMATOCRIT 20.5 % (37.0-47.0); HEMOGLOBIN 7.1 g/dl (12.5-16.0); MEAN CORPUSCULAR HEMOGLOBIN 32 pg (27.0-31.0)
[2021-06-17 11:41] LABS: PLATELET COUNT 5 K/mm3 (130-400)
[2021-06-17 11:52] LABS: ANISOCYTOSIS 1+; BAND 1 % (0-10); EOSINOPHIL 1 % (0-4); LYMPHOCYTE 68 % (20.0-51.0); NEUTROPHILS 29 % (42.0-75.2); OVALOCYTES 1+; PLATELET ESTIMATE DECREASED (NORMAL); TEAR DROP CELLS 1+
[2021-06-18] VITALS (18 sets, daily range): BP systolic 100–138; BP diastolic 68–90; PULSE 80–91; TEMP 98.2–98.8
--- NOTE | 2021-06-18 13:37 | NUR ---
Report to victor manuel Bauer.
[~2021-06-19] VITALS: Ht 157.5 cm; Wt 63.0 kg
[2021-06-19 10:57] VITALS: BP 100/67; PULSE 91; TEMP 98.2
[~2021-06-19 11:00] MED LIST changes: +FLEXERIL5 MG PO
[2021-06-19 11:03] LABS: MEAN CELL VOLUME 89 fl (80.0-100.0); MEAN CORPUSCULAR HGB CONC 36 g/dl (33.0-37.0); MEAN PLATELET VOLUME 11.6 fl (7.4-10.4); RED BLOOD COUNT 2.81 M/mm3 (4.10-5.30); REDCELL DISTRIBUTION WIDTH-CV 16.1 % (11.5-14.5)
[2021-06-19 11:06] LABS: HEMATOCRIT 24.9 % (37.0-47.0); MEAN CORPUSCULAR HEMOGLOBIN 32 pg (27.0-31.0)
[2021-06-19 11:07] LABS: PLATELET COUNT 28 K/mm3 (130-400)
[2021-06-19 11:19] LABS: BAND 5 % (0-10); BASOPHIL 1 % (0-2); LYMPHOCYTE 44 % (20.0-51.0); NEUTROPHILS 47 % (42.0-75.2); PLATELET ESTIMATE DECREASED (NORMAL)
[2021-06-19 11:20] LABS: ANISOCYTOSIS 1+
[2021-08-07] MEDS ORDERED: MAGIC MOUTH PO (11:04)
== END 2021-06-19 12:28 ==
LOC: EUO 11:00
PROVIDERS: Internal Medicine Medical Oncology
DX: D46.21 Refractory anemia with excess of blasts 1 (principal); Z95.9 Presence of cardiac and vascular implant and graft, unspecified
CPT/HCPCS: OP; J7050; P9035; P9040

== ENCOUNTER 2021-08-14 11:00 | Outpatient (RCR) | payer MEDICARE, OTHER ==
[2021-06-24] VITALS (9 sets, daily range): BP systolic 103–126; BP diastolic 63–85; PULSE 76–87; TEMP 97.9–98
[2021-06-24 11:10] LABS: MEAN CELL VOLUME 92 fl (80.0-100.0); MEAN CORPUSCULAR HGB CONC 34 g/dl (33.0-37.0); RED BLOOD COUNT 3.17 M/mm3 (4.10-5.30); REDCELL DISTRIBUTION WIDTH-CV 15.9 % (11.5-14.5)
[2021-06-24 11:18] LABS: HEMOGLOBIN 9.9 g/dl (12.5-16.0); MEAN CORPUSCULAR HEMOGLOBIN 31 pg (27.0-31.0)
[2021-06-24 11:20] LABS: PLATELET COUNT 2 K/mm3 (130-400)
[2021-06-24 11:50] LABS: BAND 3 % (0-10); BASOPHIL 1 % (0-2); EOSINOPHIL 1 % (0-4); LYMPHOCYTE 63 % (20.0-51.0); NEUTROPHILS 29 % (42.0-75.2); NUCLEATED RED BLOOD CELL 1 (0-6)
[2021-06-24 11:51] LABS: PLATELET ESTIMATE DECREASED (NORMAL)
[2021-06-26 10:57] LABS: MEAN CELL VOLUME 91 fl (80.0-100.0); MEAN CORPUSCULAR HGB CONC 35 g/dl (33.0-37.0); MEAN PLATELET VOLUME 10.4 fl (7.4-10.4); RED BLOOD COUNT 2.35 M/mm3 (4.10-5.30); REDCELL DISTRIBUTION WIDTH-CV 15.3 % (11.5-14.5)
[2021-06-26 10:58] LABS: HEMATOCRIT 21.4 % (37.0-47.0); HEMOGLOBIN 7.4 g/dl (12.5-16.0); MEAN CORPUSCULAR HEMOGLOBIN 31 pg (27.0-31.0)
[2021-06-26 11:00] LABS: PLATELET COUNT 16 K/mm3 (130-400)
[2021-06-26 11:08] VITALS: BP 103/68; PULSE 82; TEMP 98.3
[2021-06-26 11:27] LABS: BAND 5 % (0-10); EOSINOPHIL 1 % (0-4); LYMPHOCYTE 63 % (20.0-51.0); NEUTROPHILS 31 % (42.0-75.2); PLATELET ESTIMATE DECREASED (NORMAL)
[2021-07-01 11:12] VITALS: BP 120/81; PULSE 99; TEMP 98.1
[2021-07-01 11:13] LABS: MEAN CELL VOLUME 92 fl (80.0-100.0); MEAN CORPUSCULAR HGB CONC 35 g/dl (33.0-37.0); RED BLOOD COUNT 2.15 M/mm3 (4.10-5.30); REDCELL DISTRIBUTION WIDTH-CV 15.6 % (11.5-14.5)
[2021-07-01 11:16] LABS: HEMATOCRIT 19.7 % (37.0-47.0); HEMOGLOBIN 6.8 g/dl (12.5-16.0); MEAN CORPUSCULAR HEMOGLOBIN 32 pg (27.0-31.0); PLATELET COUNT 1 K/mm3 (130-400)
[2021-07-01 11:57] LABS: BAND 5 % (0-10); EOSINOPHIL 1 % (0-4); LYMPHOCYTE 50 % (20.0-51.0); NEUTROPHILS 42 % (42.0-75.2)
[2021-07-01 11:58] LABS: ANISOCYTOSIS 1+; PLATELET ESTIMATE DECREASED (NORMAL)
[2021-07-01 11:59] LABS: OVALOCYTES 1+
[2021-07-01 15:15] VITALS: BP 136/74; PULSE 111; TEMP 98.1
[2021-07-01 15:31] VITALS: BP 114/76; PULSE 111; TEMP 98
[2021-07-01 15:46] VITALS: BP 110/72; PULSE 99; TEMP 98
[2021-07-01 16:16] VITALS: BP 117/78; PULSE 98; TEMP 98
[2021-07-01 16:40] VITALS: BP 107/70; PULSE 102; TEMP 98
[2021-07-02] VITALS (13 sets, daily range): BP systolic 106–133; BP diastolic 35–71; PULSE 89–103; TEMP 98.4–98.9
[2021-07-03 10:57] VITALS: BP 101/66; PULSE 76; TEMP 97.7
[2021-07-03 11:03] LABS: MEAN CORPUSCULAR HGB CONC 36 g/dl (33.0-37.0); MEAN PLATELET VOLUME 10.1 fl (7.4-10.4); RED BLOOD COUNT 2.88 M/mm3 (4.10-5.30); REDCELL DISTRIBUTION WIDTH-CV 14.5 % (11.5-14.5)
[2021-07-03 11:12] LABS: HEMATOCRIT 25.1 % (37.0-47.0); MEAN CELL VOLUME 87 fl (80.0-100.0); MEAN CORPUSCULAR HEMOGLOBIN 31 pg (27.0-31.0)
[2021-07-03 11:13] LABS: PLATELET COUNT 34 K/mm3 (130-400)
[2021-07-03 12:50] LABS: BAND 6 % (0-10); BASOPHIL 1 % (0-2); EOSINOPHIL 1 % (0-4); LYMPHOCYTE 49 % (20.0-51.0); NEUTROPHILS 40 % (42.0-75.2); PLATELET ESTIMATE DECREASED (NORMAL)
[2021-07-08] VITALS (7 sets, daily range): BP systolic 107–133; BP diastolic 72–85; PULSE 92–103; TEMP 97.7–98.2
[2021-07-08 10:49] LABS: MEAN CELL VOLUME 90 fl (80.0-100.0); MEAN CORPUSCULAR HGB CONC 35 g/dl (33.0-37.0); RED BLOOD COUNT 2.93 M/mm3 (4.10-5.30); REDCELL DISTRIBUTION WIDTH-CV 14.1 % (11.5-14.5)
[2021-07-08 11:06] LABS: HEMATOCRIT 26.5 % (37.0-47.0); HEMOGLOBIN 9.2 g/dl (12.5-16.0); MEAN CORPUSCULAR HEMOGLOBIN 31 pg (27.0-31.0); PLATELET COUNT 2 K/mm3 (130-400)
[2021-07-08 11:14] LABS: BAND 6 % (0-10); EOSINOPHIL 2 % (0-4); LYMPHOCYTE 61 % (20.0-51.0); NEUTROPHILS 27 % (42.0-75.2); PLATELET ESTIMATE DECREASED (NORMAL)
[2021-07-09 13:41] VITALS: BP 121/63; PULSE 81; TEMP 98.8
[2021-07-09 13:58] VITALS: BP 110/78; PULSE 80; TEMP 98.7
[2021-07-09 14:13] VITALS: BP 111/72; PULSE 76; TEMP 97.9
[2021-07-09 14:43] VITALS: BP 111/68; PULSE 78; TEMP 98.3
[2021-07-10 11:02] LABS: MEAN CELL VOLUME 90 fl (80.0-100.0); MEAN CORPUSCULAR HGB CONC 35 g/dl (33.0-37.0); MEAN PLATELET VOLUME 9.7 fl (7.4-10.4); RED BLOOD COUNT 2.49 M/mm3 (4.10-5.30); REDCELL DISTRIBUTION WIDTH-CV 14.2 % (11.5-14.5)
[2021-07-10 11:03] LABS: HEMATOCRIT 22.5 % (37.0-47.0); HEMOGLOBIN 7.9 g/dl (12.5-16.0); MEAN CORPUSCULAR HEMOGLOBIN 32 pg (27.0-31.0)
[2021-07-10 11:04] LABS: PLATELET COUNT 24 K/mm3 (130-400)
[2021-07-10 11:27] LABS: BAND 4 % (0-10); EOSINOPHIL 1 % (0-4); LYMPHOCYTE 63 % (20.0-51.0); NEUTROPHILS 32 % (42.0-75.2); OVALOCYTES 1+; PLATELET ESTIMATE DECREASED (NORMAL); TEAR DROP CELLS 1+
[2021-07-10 11:37] VITALS: BP 126/69; PULSE 88; TEMP 98.7
[2021-07-15 11:19] VITALS: BP 126/80; PULSE 104; TEMP 98.2
[2021-07-15 11:26] LABS: MEAN CELL VOLUME 91 fl (80.0-100.0); MEAN CORPUSCULAR HGB CONC 35 g/dl (33.0-37.0); RED BLOOD COUNT 2.22 M/mm3 (4.10-5.30); REDCELL DISTRIBUTION WIDTH-CV 14.1 % (11.5-14.5)
[2021-07-15 11:32] LABS: HEMATOCRIT 20.1 % (37.0-47.0); MEAN CORPUSCULAR HEMOGLOBIN 32 pg (27.0-31.0)
[2021-07-15 11:36] LABS: PLATELET COUNT 2 K/mm3 (130-400)
[2021-07-15 12:18] LABS: BAND 11 % (0-10); NEUTROPHILS 37 % (42.0-75.2)
[2021-07-15 12:23] LABS: LYMPHOCYTE 50 % (20.0-51.0)
[2021-07-15 12:24] LABS: OVALOCYTES 1+
[2021-07-15 14:03] VITALS: BP 106/67; PULSE 94; TEMP 98
[2021-07-15 14:23] VITALS: BP 114/70; PULSE 98; TEMP 98.6
[2021-07-15 14:38] VITALS: BP 115/77; PULSE 95; TEMP 98
[2021-07-15 15:08] VITALS: BP 113/73; PULSE 95; TEMP 99
[2021-07-15 15:34] VITALS: BP 110/68; PULSE 95; TEMP 99.1
--- NOTE | 2021-07-15 15:34 | NUR ---
Pt received one unit of platelets today and will return tomorrow for 2 units prbc and another unit of platelet.
--- NOTE | 2021-07-15 15:51 | NUR ---
Pt escorted out via whelchair and escorted to car.
[2021-07-16] VITALS (12 sets, daily range): BP systolic 93–114; BP diastolic 55–77; PULSE 74–100; TEMP 98.3–99
--- NOTE | 2021-07-16 19:15 | NUR ---
I ambulated with pt to exit. she is ambulatory with steady gait. She has tolerated her transfusions with no problems.
[2021-07-17 10:12] LABS: MEAN CORPUSCULAR HGB CONC 35 g/dl (33.0-37.0); RED BLOOD COUNT 2.84 M/mm3 (4.10-5.30); REDCELL DISTRIBUTION WIDTH-CV 15.6 % (11.5-14.5)
[2021-07-17 10:23] VITALS: BP 121/77; PULSE 94; TEMP 99.8
[2021-07-17 10:33] LABS: HEMATOCRIT 24.3 % (37.0-47.0); HEMOGLOBIN 8.5 g/dl (12.5-16.0); MEAN CELL VOLUME 86 fl (80.0-100.0); MEAN CORPUSCULAR HEMOGLOBIN 30 pg (27.0-31.0); PLATELET COUNT 43 K/mm3 (130-400)
[2021-07-17 10:53] LABS: BAND 8 % (0-10); BASOPHIL 2 % (0-2); LYMPHOCYTE 50 % (20.0-51.0); NEUTROPHILS 36 % (42.0-75.2)
[2021-07-17 10:54] LABS: MICROCYTOSIS 1+; PLATELET ESTIMATE DECREASED (NORMAL)
[2021-07-22 11:01] VITALS: BP 101/70; PULSE 100; TEMP 98
[2021-07-22 11:04] LABS: MEAN CELL VOLUME 85 fl (80.0-100.0); MEAN CORPUSCULAR HGB CONC 35 g/dl (33.0-37.0); RED BLOOD COUNT 2.92 M/mm3 (4.10-5.30); REDCELL DISTRIBUTION WIDTH-CV 14.4 % (11.5-14.5)
[2021-07-22 11:07] LABS: HEMATOCRIT 24.9 % (37.0-47.0); HEMOGLOBIN 8.7 g/dl (12.5-16.0); MEAN CORPUSCULAR HEMOGLOBIN 30 pg (27.0-31.0)
[2021-07-22 11:09] LABS: PLATELET COUNT 3 K/mm3 (130-400)
[2021-07-22 12:02] LABS: BAND 5 % (0-10); EOSINOPHIL 3 % (0-4); LYMPHOCYTE 62 % (20.0-51.0); NEUTROPHILS 29 % (42.0-75.2)
[2021-07-22 12:04] LABS: PLATELET ESTIMATE DECREASED (NORMAL)
[2021-07-22 14:00] VITALS: BP 91/65; PULSE 96; TEMP 98.1
[2021-07-22 14:15] VITALS: BP 102/75; PULSE 105; TEMP 98.5
[2021-07-22 14:45] VITALS: BP 118/77; PULSE 103; TEMP 98.5
[2021-07-22 15:25] VITALS: BP 107/75; PULSE 97; TEMP 98.5
[2021-07-23] VITALS (7 sets, daily range): BP systolic 98–116; BP diastolic 71–84; PULSE 94–98; TEMP 97.4–98.6
[2021-07-24 11:14] LABS: MEAN CELL VOLUME 87 fl (80.0-100.0); MEAN CORPUSCULAR HGB CONC 34 g/dl (33.0-37.0); MEAN PLATELET VOLUME 8.9 fl (7.4-10.4); RED BLOOD COUNT 2.44 M/mm3 (4.10-5.30); REDCELL DISTRIBUTION WIDTH-CV 13.9 % (11.5-14.5)
[2021-07-24 11:18] VITALS: BP 96/65; PULSE 98; TEMP 99
[2021-07-24 11:56] LABS: HEMATOCRIT 21.2 % (37.0-47.0); HEMOGLOBIN 7.3 g/dl (12.5-16.0); MEAN CORPUSCULAR HEMOGLOBIN 30 pg (27.0-31.0)
[2021-07-24 11:57] LABS: PLATELET COUNT 28 K/mm3 (130-400)
[2021-07-24 12:09] LABS: BAND 3 % (0-10); NEUTROPHILS 24 % (42.0-75.2)
[2021-07-24 12:10] LABS: PLATELET ESTIMATE DECREASED (NORMAL)
[2021-07-24 12:12] LABS: LYMPHOCYTE 73 % (20.0-51.0)
[2021-07-24 14:52] VITALS: BP 104/73; PULSE 95; TEMP 98.5
[2021-07-24 15:52] VITALS: BP 102/72; PULSE 91; TEMP 98.5
[2021-07-24 16:07] VITALS: BP 95/61; PULSE 92; TEMP 97.5
[2021-07-24 16:37] VITALS: BP 103/71; PULSE 89; TEMP 97.6
[2021-07-24 17:35] VITALS: BP 99/76; PULSE 84; TEMP 98.6
[2021-07-25 13:15] VITALS: BP 103/71; PULSE 99; TEMP 97.9
[2021-07-25 13:51] LABS: MEAN CORPUSCULAR HGB CONC 35 g/dl (33.0-37.0); RED BLOOD COUNT 3.02 M/mm3 (4.10-5.30)
[2021-07-25 14:21] LABS: HEMATOCRIT 24.4 % (37.0-47.0); HEMOGLOBIN 8.5 g/dl (12.5-16.0); MEAN CELL VOLUME 81 fl (80.0-100.0); MEAN CORPUSCULAR HEMOGLOBIN 28 pg (27.0-31.0); PLATELET COUNT 15 K/mm3 (130-400)
[2021-07-25 14:24] LABS: BAND 2 % (0-10); LYMPHOCYTE 70 % (20.0-51.0); NEUTROPHILS 28 % (42.0-75.2)
[2021-07-25 14:25] LABS: ANISOCYTOSIS 2+; MICROCYTOSIS 2+; PLATELET ESTIMATE DECREASED (NORMAL)
[2021-07-29 11:36] LABS: MEAN CELL VOLUME 84 fl (80.0-100.0); MEAN CORPUSCULAR HGB CONC 34 g/dl (33.0-37.0); RED BLOOD COUNT 3.01 M/mm3 (4.10-5.30); REDCELL DISTRIBUTION WIDTH-CV 15.3 % (11.5-14.5)
[2021-07-29 11:39] LABS: HEMATOCRIT 25.3 % (37.0-47.0); HEMOGLOBIN 8.5 g/dl (12.5-16.0); MEAN CORPUSCULAR HEMOGLOBIN 28 pg (27.0-31.0)
[2021-07-29 11:41] LABS: PLATELET COUNT 2 K/mm3 (130-400)
[2021-07-29 12:06] LABS: BAND 5 % (0-10); EOSINOPHIL 1 % (0-4); LYMPHOCYTE 58 % (20.0-51.0); NEUTROPHILS 29 % (42.0-75.2); PLATELET ESTIMATE DECREASED (NORMAL)
[2021-07-29 12:18] VITALS: BP 107/72; PULSE 101; TEMP 98.7
[2021-07-30] VITALS (8 sets, daily range): BP systolic 93–103; BP diastolic 61–76; PULSE 86–98; TEMP 97.4–98.2
--- NOTE | 2021-07-30 17:31 | NUR ---
Pt escorted out via wheelchair by Jamil Bauer.
[2021-07-31 11:43] LABS: MEAN CELL VOLUME 83 fl (80.0-100.0); MEAN CORPUSCULAR HGB CONC 34 g/dl (33.0-37.0); MEAN PLATELET VOLUME 9.8 fl (7.4-10.4); RED BLOOD COUNT 2.37 M/mm3 (4.10-5.30); REDCELL DISTRIBUTION WIDTH-CV 15.2 % (11.5-14.5)
[2021-07-31 11:45] LABS: HEMATOCRIT 19.6 % (37.0-47.0); HEMOGLOBIN 6.7 g/dl (12.5-16.0); MEAN CORPUSCULAR HEMOGLOBIN 28 pg (27.0-31.0)
[2021-07-31 11:46] LABS: PLATELET COUNT 13 K/mm3 (130-400)
[2021-07-31 11:54] VITALS: BP 127/95; PULSE 107; TEMP 99.1
[2021-07-31 12:15] LABS: ANISOCYTOSIS 1+; BAND 9 % (0-10); EOSINOPHIL 2 % (0-4); LYMPHOCYTE 50 % (20.0-51.0); NEUTROPHILS 34 % (42.0-75.2); PLATELET ESTIMATE DECREASED (NORMAL)
[2021-07-31 15:41] VITALS: BP 105/92; PULSE 97; TEMP 98.4
[2021-07-31 16:10] VITALS: BP 111/68; PULSE 102; TEMP 99.1
[2021-07-31 16:25] VITALS: BP 106/70; PULSE 101; TEMP 100.1
[2021-07-31 16:55] VITALS: BP 97/72; PULSE 99; TEMP 99.5
[2021-07-31 17:16] VITALS: BP 100/66; PULSE 97; TEMP 99.8
[2021-08-01] VITALS (12 sets, daily range): BP systolic 102–132; BP diastolic 69–84; PULSE 72–96; TEMP 98–98.5
[2021-08-05 11:31] LABS: MEAN CELL VOLUME 85 fl (80.0-100.0); MEAN CORPUSCULAR HGB CONC 34 g/dl (33.0-37.0); RED BLOOD COUNT 2.78 M/mm3 (4.10-5.30)
[2021-08-05 11:32] VITALS: BP 92/62; PULSE 81; TEMP 98.4
[2021-08-05 12:28] LABS: ANISOCYTOSIS 1+; LYMPHOCYTE 74 % (20.0-51.0); NEUTROPHILS 26 % (42.0-75.2); PLATELET ESTIMATE DECREASED (NORMAL)
[2021-08-05 12:33] LABS: HEMATOCRIT 23.6 % (37.0-47.0); MEAN CORPUSCULAR HEMOGLOBIN 29 pg (27.0-31.0); PLATELET COUNT 5 K/mm3 (130-400)
[2021-08-05 14:39] VITALS: BP 115/78; PULSE 79; TEMP 97.5
[2021-08-05 15:00] VITALS: BP 123/85; PULSE 86; TEMP 98.6
[2021-08-05 15:15] VITALS: BP 117/83; PULSE 84; TEMP 97.5
[2021-08-05 15:45] VITALS: BP 111/70; PULSE 83; TEMP 98.2
[2021-08-05 16:30] VITALS: BP 107/68; PULSE 84; TEMP 98.2
[2021-08-06] VITALS (9 sets, daily range): BP systolic 100–132; BP diastolic 71–93; PULSE 72–94; TEMP 97–98
[2021-08-07 11:00] VITALS: BP 121/80; PULSE 84; TEMP 97.8
[2021-08-07 11:01] LABS: MEAN CELL VOLUME 84 fl (80.0-100.0); MEAN CORPUSCULAR HGB CONC 34 g/dl (33.0-37.0); MEAN PLATELET VOLUME 8.5 fl (7.4-10.4); REDCELL DISTRIBUTION WIDTH-CV 14.8 % (11.5-14.5)
[2021-08-07 11:04] LABS: HEMOGLOBIN 8.9 g/dl (12.5-16.0); MEAN CORPUSCULAR HEMOGLOBIN 29 pg (27.0-31.0); PLATELET COUNT 22 K/mm3 (130-400)
--- NOTE | 2021-08-07 11:35 | NUR ---
Aliza RN returns call stating no additional orders for transfusion given for today. Pt assisted out to her car by wheelchair.
[2021-08-07 12:06] LABS: BAND 4 % (0-10); EOSINOPHIL 1 % (0-4); LYMPHOCYTE 56 % (20.0-51.0); NEUTROPHILS 33 % (42.0-75.2); PLATELET ESTIMATE DECREASED (NORMAL)
[2021-08-12 11:29] LABS: MEAN CELL VOLUME 85 fl (80.0-100.0); MEAN CORPUSCULAR HGB CONC 34 g/dl (33.0-37.0); RED BLOOD COUNT 2.99 M/mm3 (4.10-5.30); REDCELL DISTRIBUTION WIDTH-CV 14.4 % (11.5-14.5)
[2021-08-12 11:39] LABS: MEAN CORPUSCULAR HEMOGLOBIN 29 pg (27.0-31.0)
[2021-08-12 11:40] LABS: HEMATOCRIT 25.4 % (37.0-47.0)
[2021-08-12 11:41] LABS: PLATELET COUNT 1 K/mm3 (130-400)
[2021-08-12 11:42] LABS: HEMOGLOBIN 8.6 g/dl (12.5-16.0)
[2021-08-12 12:16] VITALS: BP 94/71; PULSE 114; TEMP 99.1
[2021-08-12 12:39] LABS: BAND 6 % (0-10); BASOPHIL 1 % (0-2); LYMPHOCYTE 72 % (20.0-51.0); NEUTROPHILS 20 % (42.0-75.2); PLATELET ESTIMATE DECREASED (NORMAL)
[2021-08-12 13:59] VITALS: BP 114/63; PULSE 109; TEMP 98.6
[2021-08-12 14:14] VITALS: BP 103/68; PULSE 108; TEMP 98.4
[2021-08-12 14:44] VITALS: BP 102/56; PULSE 107; TEMP 98.2
[2021-08-12 15:37] VITALS: BP 100/67; PULSE 100; TEMP 98.2
[2021-08-13 13:26] VITALS: BP 93/75; PULSE 114; TEMP 98.4
[2021-08-13 13:28] VITALS: BP 104/63; PULSE 114; TEMP 98.7
[2021-08-13 13:45] VITALS: BP 92/64; PULSE 111; TEMP 99.1
--- NOTE | 2021-08-13 13:52 | NUR ---
PT DOING WELL. NO REACTIONS NOTED.
[2021-08-13 14:09] VITALS: BP 96/75; PULSE 103; TEMP 99.3
[2021-08-13 14:35] VITALS: BP 101/68; PULSE 106; TEMP 98.8
--- NOTE | 2021-08-13 15:20 | NUR ---
Report from Jamil monreal.
[2021-08-13 15:33] VITALS: BP 91/62; PULSE 107; TEMP 98.3
[2021-08-14] VITALS (9 sets, daily range): BP systolic 90–111; BP diastolic 66–76; PULSE 55–108; TEMP 97.6–98.8
[~2021-08-14] VITALS: Ht 157.5 cm; Wt 63.7 kg
[~2021-08-14 11:00] MED LIST changes: +MAGIC MOUTH PO
[2021-08-14 11:24] LABS: MEAN CELL VOLUME 86 fl (80.0-100.0); MEAN CORPUSCULAR HGB CONC 33 g/dl (33.0-37.0); MEAN PLATELET VOLUME 10.3 fl (7.4-10.4); RED BLOOD COUNT 2.42 M/mm3 (4.10-5.30); REDCELL DISTRIBUTION WIDTH-CV 14.3 % (11.5-14.5)
[2021-08-14 11:28] LABS: HEMATOCRIT 20.8 % (37.0-47.0); HEMOGLOBIN 6.9 g/dl (12.5-16.0); MEAN CORPUSCULAR HEMOGLOBIN 29 pg (27.0-31.0); PLATELET COUNT 28 K/mm3 (130-400)
[2021-08-14 12:12] LABS: ANISOCYTOSIS 1+; BAND 2 % (0-10); HYPOCHROMIA 2+; LYMPHOCYTE 68 % (20.0-51.0); NEUTROPHILS 30 % (42.0-75.2)
--- NOTE | 2021-08-21 09:29 | NUR ---
Pt is inpt,apt cancelled
== END 2021-08-21 09:30 | disposition home or self-care (01) ==
LOC: EUO 11:00
PROVIDERS: Internal Medicine Medical Oncology
DX: D69.6 Thrombocytopenia, unspecified (principal); D46.21 Refractory anemia with excess of blasts 1
CPT/HCPCS: 86644; J7050; P9035; P9040

== ENCOUNTER 2021-08-20 11:12 | Inpatient (IN) | payer MEDICARE, OTHER ==
[~2021-08-20] VITALS: Ht 157.5 cm; Wt 62.5 kg
[2021-08-20 12:12] LABS: MEAN CELL VOLUME 82 fl (80.0-100.0); MEAN CORPUSCULAR HGB CONC 35 g/dl (33.0-37.0); RED BLOOD COUNT 2.72 M/mm3 (4.10-5.30); REDCELL DISTRIBUTION WIDTH-CV 13.7 % (11.5-14.5)
--- NOTE | 2021-08-20 12:15 | NUR ---
Patient is located in the emergency department. Patient's right upper PICC intact. Sterile dressing change performed with insertion site cleansed with ChloraPrep x1, chlorhexidine impregnated disc applied, skin prep, StatLock, and Tegaderm applied. Caps changed and both ports flushed with 10 mL normal saline with good blood return noted. No signs or symptoms of IV complications noted. To return to the express unit next week as scheduled. Patient voiced understanding of instructions.
[2021-08-20 12:20] LABS: HEMATOCRIT 22.4 % (37.0-47.0); MEAN CORPUSCULAR HEMOGLOBIN 29 pg (27.0-31.0); PLATELET COUNT 2 K/mm3 (130-400)
[2021-08-20 12:21] LABS: HEMOGLOBIN 7.9 g/dl (12.5-16.0)
[2021-08-20 12:30] LABS: ALBUMIN 3.2 gm/dL (3.4-4.8); BILIRUBIN,TOTAL 0.8 mg/dL (0.2-1.2); C-REACTIVE PROTEIN 17.31 mg/dL (0.00-0.50); CALCIUM 10.5 mg/dL (8.4-10.2); CREATININE, serum 0.94 mg/dL (0.57-1.11); POTASSIUM 4.1 mmol/L (3.5-4.5); TOTAL PROTEIN 8.2 gm/dL (6.2-8.1)
[2021-08-20 12:33] LABS: INR 1.5 (0.8-3.0); PROTHROMBIN TIME 16.2 SECONDS (9.7-12.8)
[2021-08-20 12:52] LABS: ANISOCYTOSIS 1+; BAND 4 % (0-10); HYPOCHROMIA 2+; LYMPHOCYTE 46 % (20.0-51.0); MYELOCYTE 2 % (0-0); NEUTROPHILS 48 % (42.0-75.2); PLATELET ESTIMATE DECREASED (NORMAL)
[2021-08-20 12:57] LABS: PH 5 (5-8); URINE APPEARANCE Clear; URINE COLOR Red; URINE GLUCOSE Negative (NEGATIVE); URINE PROTEIN(semi-quant) 2+ (NEGATIVE)
[2021-08-20 12:58] LABS: MUCOUS Present /lpf; SQUAMOUS EPITHELIAL 0-2 /hpf; URINE BACTERIA Many /hpf; URINE BILIRUBIN Negative (NEGATIVE); URINE BLOOD 1+ (NEGATIVE); URINE KETONE Negative (NEGATIVE); URINE LEUKOCYTE ESTERASE Negative (NEGATIVE); URINE NITRATE Positive (NEGATIVE); URINE RBC None Seen /hpf
[2021-08-20 13:52] VITALS: BP 92/68; PULSE 103; TEMP 98.6
[2021-08-20 14:07] VITALS: BP 99/78; PULSE 102; TEMP 98.8
[2021-08-20 14:37] VITALS: BP 101/72; PULSE 96; TEMP 98.7
[2021-08-20 15:52] VITALS: BP 135/80; PULSE 83; TEMP 97.5
[2021-08-20 18:05] VITALS: BP 125/71; PULSE 84; TEMP 99.5
[2021-08-20 19:36] VITALS: BP 118/71; PULSE 86; TEMP 98.4
--- NOTE | 2021-08-20 21:00 | NUR ---
Initial shift assessment done- has been resting, states has back pain 06/03--not time for [place],, will give Flexeril at this time, has some bruising on legs, Up to bathroom with assist- voiding bloody urine, Has PICC to [facility].
[2021-08-21] VITALS (9 sets, daily range): BP systolic 104–129; BP diastolic 63–69; PULSE 74–94; TEMP 97.8–98.8
--- NOTE | 2021-08-21 01:23 | NUR ---
Resting quietly, hematuria continues, no s/s of hypo/hyper glycemia, VS stable, denies pain at this time. Call lopez w/i reach, will continue to monitor.
--- NOTE | 2021-08-21 04:27 | NUR ---
Notified Marixa GREENP of positive blood cultures- see new orders.
[2021-08-21 05:16] LABS: MEAN CELL VOLUME 85 fl (80.0-100.0); MEAN CORPUSCULAR HGB CONC 34 g/dl (33.0-37.0); MEAN PLATELET VOLUME 11.4 fl (7.4-10.4); RED BLOOD COUNT 2.13 M/mm3 (4.10-5.30)
[2021-08-21 05:28] LABS: HEMATOCRIT 18.2 % (37.0-47.0); HEMOGLOBIN 6.2 g/dl (12.5-16.0); MEAN CORPUSCULAR HEMOGLOBIN 29 pg (27.0-31.0); PLATELET COUNT 26 K/mm3 (130-400)
[2021-08-21 05:29] LABS: ALBUMIN 2.7 gm/dL (3.4-4.8); CALCIUM 9.5 mg/dL (8.4-10.2); CREATININE, serum 0.68 mg/dL (0.57-1.11); MAGNESIUM 1.1 mg/dL (1.6-2.6); PHOSPHOROUS 3.3 mg/dL (2.3-4.7); POTASSIUM 3.5 mmol/L (3.5-4.5)
--- NOTE | 2021-08-21 05:30 | NUR ---
Critical results of Plt 26, hgb 6.2, wbc 1.2 reported to Marixa Cummings BOX SEALING INSPECTOR - see new orders
--- NOTE | 2021-08-21 05:31 | NUR ---
Vancomycin Initial Dosing Pharmacy Note Ordering provider: Boni Ramirez MD Indication/duration: Bacteremia x 7 days Relevant comorbidities: HTN, DM LABS: SCr = 0.94, WBC = 1.1, Staphylococcus +, MRSA PCR ordered. Recommendation: Will draw troughs and follow levels. Loading dose: 1.25 grams Maintenance dose: 1.25 grams every 24 hours Trough goal: 15-20 ug/mL
[2021-08-21 06:08] LABS: BAND 6 % (0-10); EOSINOPHIL 6 % (0-4); LYMPHOCYTE 70 % (20.0-51.0); METAMYELOCYTE 4 % (0-0); NEUTROPHILS 8 % (42.0-75.2)
[2021-08-21 06:09] LABS: PLATELET ESTIMATE DECREASED (NORMAL); POIKILOCYTOSIS 1+
[2021-08-21 06:10] LABS: OVALOCYTES 1+
[2021-08-21 09:35] LABS: COLLECTION METHOD CATHETER
--- NOTE | 2021-08-21 10:07 | NUR ---
HECTOR met with the patient to discuss discharge plan. The patient lives in [place] with her daughter, Kalpana Fields (ph#[phone]). She reports independence with ADLs and has a cane. The patient's PCP is Dr. Ivelisse Neal and she receives her medications from [facility]. She reports no difficulties obtaining her meds. The patient's Financial DPOA is in EMR, but not a DPOA-HC. The patient reports that he does have a DPOA-HC and that her PCP or Dr. Calderon's office may have a copy of it. Per the patient's H&P, the patient stated that she was on hospice. SW addressed this with the patient. The patient states that she on hospice at home, but cannot recall the agencies name. She informed HECTOR that she is unsure want she wants when she leaves here. The patient's daughter, Kalpana, then entered the room. Kalpana confirmed the above. She reports that they had just started paperwork with [facility] and that they would want to resume services. HECTOR updated the clinical team. A palliative care consult was ordered. HECTOR then contacted and faxed updates to Yue at [facility]. Yue reports that the patient just started on their Palliative [facility] program on Wednesday. She reports that the patient was still wanting to continue with the blood transfusions. When the patient has had enough of the blood transfusions, they have discussed with the patient and her daughter how they can switch her to hospice. HECTOR contacted the patient's PCP office and Dr. Calderon's office to inquire if they have a DPOA-HC on file for her. Both clinics report that they do not. SW to update the patient and her daughter.
--- NOTE | 2021-08-21 10:29 | NUR ---
First visit from the small animal veterinarian. No needs right now.
--- NOTE | 2021-08-21 10:44 | NUR ---
HECTOR met with the patient and her daughter, Kalpana, and updated them about the DPOA-HC. The patient was interested in completing a DPOA-HC while here. HECTOR provided the form. The patient verbalized that she wants to designate her daughter, Kalpana, as her DPOA-HC and then Migue Saab (ph#[phone]), as the alternate. HECTOR and Jenna baseball umpire for little league, witnessed the patient's signature. HECTOR provided the patient and her daughter with the original and some copies. HECTOR placed a copy in the patient's chart.
--- NOTE | 2021-08-21 13:05 | NUR ---
I met with patient and her daughter Kalpana at bedside. Gudelia brushed her teeth and used a Magic Mouthwash at bedside as her mouth gets very sore and irritated and keeps her from eating because it hurts too much. She also reports that her bottom and her back/abdomen are hurting a lot. She has been using tramadol and norco at home to help with the pain but it really doesn't do much. Has tried Lidocaine patches but they have not helped with the pain either. She reports that she gets blood transfusion twice a week with blood drawn Tuesdays and and transfusions follow as indicated. 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 She is currently getting palliative home health from [facility] and has had one visit. She reports that sometimes she feels better after a transfusion but certainly not always. Would like to get pain under control and see if that will help. She is aware that her condition is expected to get worse and that it will most likely lead to her . She is not sure that she is ready for hospice services now but does say if can't feel better with help of pain medication adjustments, then may consider switching to hospice services. Support provided. Ngoc contacted and fentanyl patch requested, order will be entered and then MATILDE Alvarez, will apply. pt was DNR on previous admission but I did not discuss this with her today.
--- NOTE | 2021-08-21 13:56 | NUR ---
Primary nurse was assisted with [phone] patient care by [employer] student Rosemarie Keller and [employer] instructor Annabelle Monahan MSN, RN.
[2021-08-21 18:10] LABS: MEAN CELL VOLUME 83 fl (80.0-100.0); MEAN CORPUSCULAR HGB CONC 35 g/dl (33.0-37.0); MEAN PLATELET VOLUME 11.2 fl (7.4-10.4); RED BLOOD COUNT 2.74 M/mm3 (4.10-5.30); REDCELL DISTRIBUTION WIDTH-CV 13.9 % (11.5-14.5)
[2021-08-21 18:54] LABS: HEMATOCRIT 22.6 % (37.0-47.0); HEMOGLOBIN 7.9 g/dl (12.5-16.0); MEAN CORPUSCULAR HEMOGLOBIN 29 pg (27.0-31.0); PLATELET COUNT 21 K/mm3 (130-400)
--- NOTE | 2021-08-21 21:06 | NUR ---
ALERT AND OX3. DENIES SOA, CHEST PAIN OR DIZZY. RATING BACK PAIN 07/04. NORCO AND FLEXERIL/HEAT FOR PAIN. PM MEDS GIVEN. IV ANTIBOTICS. POC DISCUSSED. PICC TO RT UPPER ARM FLUSHED. CALL LIGHT WI REACH. NEEDS MET.
[2021-08-22] VITALS (10 sets, daily range): BP systolic 82–138; BP diastolic 50–84; PULSE 76–106; TEMP 97.6–99.7
--- NOTE | 2021-08-22 05:09 | NUR ---
PT STATES SHE SLEPT LAST NIGHT AND FEELS RESTED. RATING PAIN 9/10 THIS AM. NORCO AND AM MEDS GIVEN. NEEDS MET.
[2021-08-22 07:06] LABS: EOS % 0.9 % (0-4.0); GRAN # 0.3 K/mm3 (1.4-6.5); GRAN % 27.2 % (42.2-75.2); LYMPH # 0.7 K/mm3 (1.2-3.4); LYMPH % 65.5 % (20.0-51.0); MEAN CELL VOLUME 84 fl (80.0-100.0); MEAN CORPUSCULAR HGB CONC 35 g/dl (33.0-37.0); MEAN PLATELET VOLUME 13.4 fl (7.4-10.4); MONO # 0.1 K/mm3 (0.1-0.6); MONO % 5.5 % (1.7-9.3); RED BLOOD COUNT 2.55 M/mm3 (4.10-5.30); REDCELL DISTRIBUTION WIDTH-CV 14.2 % (11.5-14.5)
[2021-08-22 07:23] LABS: CALCIUM 9.3 mg/dL (8.4-10.2); CREATININE, serum 0.68 mg/dL (0.57-1.11); POTASSIUM 3.5 mmol/L (3.5-4.5)
[2021-08-22 07:28] LABS: HEMATOCRIT 21.3 % (37.0-47.0); HEMOGLOBIN 7.4 g/dl (12.5-16.0); MEAN CORPUSCULAR HEMOGLOBIN 29 pg (27.0-31.0); PLATELET COUNT 18 K/mm3 (130-400)
--- NOTE | 2021-08-22 10:24 | NUR ---
Met with patient and her daughter this morning. Gudelia reports that her pain is much better and that she slept better last night. She is feeling more sleepy today and did have some confusion upon awakening last night, but that has cleared up. She states that she is feeling well also after her transfusion. At this point they will continue with palliative home health through [facility] and will continue to re-evaluate the situation as time progresses as to when might switch to hospice. Her biggest goal for now is to see her great grandchildren. Suppport provided.
--- NOTE | 2021-08-22 13:00 | NUR ---
A palliative care consult was ordered. The patient and her daughter are wanting to resume the Palliative [facility] program through [facility] upon discharge. HECTOR attempted to contact and update Yue at [facility]. SW left her a voicemail. SW to continue to follow. *Discharge plan: home with daughter and palliative shelter health*
--- NOTE | 2021-08-22 13:14 | NUR ---
Assessment completed, alert/oriented, reporting severe lower back pain/ discussed with Hospitalist and gave order for Fentanyl patch/ patched placed around 1200, also using PRn [place] and Flexeril, + BC and treating with IV abx, will transfuse 1 unit of PRBC once available from [facility] in [place], hemaglobin 6.2 and plt count 26/ will also have unit of irradiated platlets on hand that we will hold for now, patient is tolerting PO intake well, daughter present in the room, they deny other needs at thistime
--- NOTE | 2021-08-22 13:16 | NUR ---
Assessment completed, alert/oriented, vital signs stable/ BP slightly hypotensive but stable and asymptomatic, patient is feeling better today and reports pain is "much better controlled" once the Fentanyl patch kicked in, she is afebrile/ we are repeating blood cultures and consulted ID/ plans for PICC removal today, daughter present in the room and she denies other needs at this time, student nurse is providing primary nursing cares for patient to day
--- NOTE | 2021-08-22 14:25 | NUR ---
Primary nurse was assisted with [id number] patient care by [employer] [facility] Rosemarie Keller and [employer] instructor Annabelle Monahan MSN, RN.
--- NOTE | 2021-08-22 17:14 | NUR ---
Unit of platelets started at this time. Protocol followed. This nurse will remain at bedside for first 15 minutes of transfusion.
[2021-08-23 00:21] VITALS: BP 117/54; PULSE 52; TEMP 97.9
--- NOTE | 2021-08-23 05:25 | NUR ---
RESTED THROUGH THE NIGHT WITHOUT INCIDENT. NEEDS ARE MET.
[2021-08-23 08:41] VITALS: BP 112/75; PULSE 78; TEMP 98.1
--- NOTE | 2021-08-23 09:01 | NUR ---
Pt assessment complete. Pt is laying in bed upon entry, she is A/O x4. Her breathing is even and unlabored on RA. Pt denies SOB. Pain 4-5/10 to back and abdomen, denies need for intervention, K pad to back. No N/V. Pt denies N/T. Does not feel up to eating this am due to lack of appetite and feeling tired. Daughter at bedside at this time. Call light within reach.
[2021-08-23 09:22] LABS: MEAN CELL VOLUME 82 fl (80.0-100.0); MEAN CORPUSCULAR HGB CONC 35 g/dl (33.0-37.0); MEAN PLATELET VOLUME 11.5 fl (7.4-10.4); RED BLOOD COUNT 2.54 M/mm3 (4.10-5.30); REDCELL DISTRIBUTION WIDTH-CV 13.8 % (11.5-14.5)
[2021-08-23 09:26] LABS: HEMATOCRIT 20.9 % (37.0-47.0); HEMOGLOBIN 7.3 g/dl (12.5-16.0); MEAN CORPUSCULAR HEMOGLOBIN 29 pg (27.0-31.0)
[2021-08-23 09:27] LABS: PLATELET COUNT 27 K/mm3 (130-400)
[2021-08-23 09:47] LABS: CALCIUM 9.7 mg/dL (8.4-10.2); CREATININE, serum 0.64 mg/dL (0.57-1.11); MAGNESIUM 1.2 mg/dL (1.6-2.6); POTASSIUM 3.3 mmol/L (3.5-4.5)
[2021-08-23 10:15] LABS: BAND 2 % (0-10); EOSINOPHIL 4 % (0-4); PLATELET ESTIMATE DECREASED (NORMAL)
[2021-08-23 10:16] LABS: LYMPHOCYTE 72 % (20.0-51.0); NEUTROPHILS 14 % (42.0-75.2)
[2021-08-23 11:49] VITALS: BP 105/71; PULSE 85; TEMP 98
--- NOTE | 2021-08-23 13:08 | NUR ---
SW update: Called [facility] to confirm patient's statues. [facility] Dice Table Person Lucretia Weinberg reports that they will accept patient on wednesday for pallitiave care and Yue will call for a statues update on client [facility] # [phone], fax [phone].
[2021-08-23 16:01] VITALS: BP 119/66; PULSE 94; TEMP 98.4
--- NOTE | 2021-08-23 18:49 | NUR ---
Uneventful day, pain relatively controlled with pain patch and hot pack. Up and showered today. No needs at this time. Call light within reach.
[2021-08-23 19:21] VITALS: BP 99/72; PULSE 97; TEMP 99.8
--- NOTE | 2021-08-23 20:47 | NUR ---
ALERT AND OX3. DENIES SOA, CHEST PAIN OR DIZZY. ABD PAIN BETTER TODAY. DENIES NEED FOR PAIN MEDS. PM MEDS GIVEN. POC DISCUSSED. IV TO LT FA FLUSHED. VSS. HUANG HS. CALL LIGHT WI REACH. NEEDS MET.
[2021-08-24 05:33] VITALS: BP 105/68; PULSE 77; TEMP 98.2
--- NOTE | 2021-08-24 05:40 | NUR ---
RESTED THROUGH THE NIGHT WITHOUT INCIDENT. NEEDS MET.
[2021-08-24 06:40] LABS: MEAN CELL VOLUME 83 fl (80.0-100.0); MEAN CORPUSCULAR HGB CONC 34 g/dl (33.0-37.0); MEAN PLATELET VOLUME 11.5 fl (7.4-10.4); RED BLOOD COUNT 2.62 M/mm3 (4.10-5.30); REDCELL DISTRIBUTION WIDTH-CV 13.5 % (11.5-14.5)
[2021-08-24 06:44] LABS: HEMATOCRIT 21.8 % (37.0-47.0); HEMOGLOBIN 7.4 g/dl (12.5-16.0); MEAN CORPUSCULAR HEMOGLOBIN 28 pg (27.0-31.0); PLATELET COUNT 21 K/mm3 (130-400)
[2021-08-24 07:21] LABS: ALBUMIN 2.8 gm/dL (3.4-4.8); CALCIUM 9.6 mg/dL (8.4-10.2); CREATININE, serum 0.62 mg/dL (0.57-1.11); MAGNESIUM 1.3 mg/dL (1.6-2.6); PHOSPHOROUS 3.1 mg/dL (2.3-4.7); POTASSIUM 3.7 mmol/L (3.5-4.5)
[2021-08-24 07:41] LABS: BAND 1 % (0-10); BASOPHIL 1 % (0-2); EOSINOPHIL 1 % (0-4); LYMPHOCYTE 82 % (20.0-51.0); NEUTROPHILS 13 % (42.0-75.2)
[2021-08-24 07:42] LABS: PLATELET ESTIMATE DECREASED (NORMAL)
[2021-08-24 07:43] LABS: ANISOCYTOSIS 1+; HYPOCHROMIA 1+; MICROCYTOSIS 1+
[2021-08-24 09:02] VITALS: BP 105/73; PULSE 94; TEMP 97.8
[2021-08-24 11:51] VITALS: BP 103/66; PULSE 86; TEMP 98
[2021-08-24 16:08] VITALS: BP 105/64; PULSE 89; TEMP 98.1
[2021-08-24 19:19] VITALS: BP 101/61; PULSE 101; TEMP 98.8
[2021-08-24 23:32] VITALS: BP 105/68; PULSE 99; TEMP 99.6
[2021-08-25] VITALS (7 sets, daily range): BP systolic 92–118; BP diastolic 63–82; PULSE 77–97; TEMP 97.5–98.7
[2021-08-25 06:20] LABS: MEAN CELL VOLUME 85 fl (80.0-100.0); MEAN CORPUSCULAR HGB CONC 34 g/dl (33.0-37.0); MEAN PLATELET VOLUME 10.5 fl (7.4-10.4); RED BLOOD COUNT 2.66 M/mm3 (4.10-5.30); REDCELL DISTRIBUTION WIDTH-CV 13.4 % (11.5-14.5)
[2021-08-25 06:32] LABS: HEMATOCRIT 22.5 % (37.0-47.0); HEMOGLOBIN 7.7 g/dl (12.5-16.0); MEAN CORPUSCULAR HEMOGLOBIN 29 pg (27.0-31.0)
[2021-08-25 06:33] LABS: PLATELET COUNT 13 K/mm3 (130-400)
[2021-08-25 07:08] LABS: ALBUMIN 2.9 gm/dL (3.4-4.8); CALCIUM 9.8 mg/dL (8.4-10.2); CREATININE, serum 0.68 mg/dL (0.57-1.11); MAGNESIUM 1.4 mg/dL (1.6-2.6); PHOSPHOROUS 2.9 mg/dL (2.3-4.7); POTASSIUM 3.9 mmol/L (3.5-4.5)
--- NOTE | 2021-08-25 07:17 | NUR ---
PT LAYING IN BED, DENIES ANY NEEDS AT THIS TIME.
[2021-08-25 08:13] LABS: EOSINOPHIL 1 % (0-4); LYMPHOCYTE 84 % (20.0-51.0); NEUTROPHILS 14 % (42.0-75.2); PLATELET ESTIMATE DECREASED (NORMAL)
--- NOTE | 2021-08-25 08:20 | NUR ---
PT REFUSES TO BE ASSESSED, IS REFUSING MEDICATIONS. DR PITT AT BEDSIDE AT THIS TIME. THE PATIENT IS VERY ANGRY AND DOES NOT WANT TO TALK TO ANYONE.
--- NOTE | 2021-08-25 12:11 | NUR ---
I went in to talk with patient this morning. She is dressed in street clothes and states she is very angry at people telling what she should do. "It is my choice!" She wants her PICC line replaced to limit the number of needle sticks that she has to have. After talking with her nurse and with Ngoc, along with the conversation she had with Dr Calderon, I believe she has decided to have her PICC line placed, knowing that she will need platelets to be above 30,000 before it will be safe to place her PICC line. She is very anxious to go home. Currently she is using [facility] which she can change to home hospice service when she is ready. She had kicked her daughter out of her room earlier and indeed was very angry in our conversations. She clearly stated, "It is not what we are going to do--it is what I am going to do!" Dr Calderon and I talked with her at length about what her wishes were. Slowly she began to calm down and when I left the room she told me that she wanted to prooceed with her PICC line placement, will take platelets to havve her count up and then wants to go home. She is not wanting to stop getting transfusions but is wanting to have her PICC. I did speak with Ngoc about this and her primary nurse Zulma. I also asked about her fentynal patch being dc'd and German was going to check on this as well as pt is again reporting significant pain in her back and side.
--- NOTE | 2021-08-25 13:36 | NUR ---
HECTOR and palliative care nurse, Carolyn, met with the patient's daughter, Kalpana. The patient and her daughter still plan on returning home with services from [facility]. HECTOR updated Yue at [facility].
--- NOTE | 2021-08-25 19:10 | NUR ---
PT RECEIVED 1 UNIT PLATELETS TODAY. DENIES ANY ISSUES WITH TRANSFUSION. BP STABLE POST TRANSFUSION. THE PATIENT HAD BEEN REFUSING MEDICATIONS FOR THE MAJORITY OF THE DAY, HOWEVER AFTER THE PLATELETS HAD BEEN GIVEN SHE BEGAN TO TAKE HER MEDICATIONS AGAIN. WHILE SHE WAS VERY ANGRY FOR MOST OF THE DAY, SHE HAS BECOME QUITE PLEASANT AGAIN THIS EVENING. THERE ARE NO OTHER CONCERNS AT THIS TIME.
--- NOTE | 2021-08-25 21:43 | NUR ---
ALERT AND OX4. DENIES SOA, CHEST PAIN OR DIZZY. PM MEDS GIVEN. REPORTS SOME BACK PAIN AND LT HIP. FENTANYL PATCH ON. POC DISUCCSED. HS BLOOD SUGAR OBTAINED. IV TO LT FA FLUSHED. CALL LIGHT WI REACH. NEEDS MET.
[2021-08-26 04:15] VITALS: BP 96/71; PULSE 83; TEMP 97.8
[2021-08-26 06:35] LABS: MEAN CELL VOLUME 81 fl (80.0-100.0); MEAN CORPUSCULAR HGB CONC 35 g/dl (33.0-37.0); MEAN PLATELET VOLUME 11.5 fl (7.4-10.4); RED BLOOD COUNT 2.47 M/mm3 (4.10-5.30); REDCELL DISTRIBUTION WIDTH-CV 13.4 % (11.5-14.5)
[2021-08-26 06:39] LABS: HEMATOCRIT 20.1 % (37.0-47.0); HEMOGLOBIN 7.1 g/dl (12.5-16.0); MEAN CORPUSCULAR HEMOGLOBIN 29 pg (27.0-31.0); PLATELET COUNT 31 K/mm3 (130-400)
[2021-08-26 06:59] LABS: CALCIUM 9.9 mg/dL (8.4-10.2); CREATININE, serum 0.66 mg/dL (0.57-1.11); POTASSIUM 3.7 mmol/L (3.5-4.5)
[2021-08-26 07:45] LABS: EOSINOPHIL 3 % (0-4); LYMPHOCYTE 88 % (20.0-51.0); NEUTROPHILS 9 % (42.0-75.2); NUCLEATED RED BLOOD CELL 1 (0-6); PLATELET ESTIMATE DECREASED (NORMAL)
[2021-08-26 08:18] VITALS: BP 114/80; PULSE 89; TEMP 97.5
--- NOTE | 2021-08-26 08:21 | NUR ---
Pt assessment complete. Pt is sitting up on the side of the bed upon entry, she is A/O X4 although reports waking up feeling disoriented. She reports pain to back 5/10, pain patch placed to back. NO N/V. Discussed POC with patient which includes a PICC line placement today. NO further needs, call light within reach.
[2021-08-26] MEDS ORDERED: FENTANYL 12MCG TD (11:57)
[2021-08-26] MEDS ORDERED: INVANZ INJ1 G/VIAL IV (12:00)
[2021-08-26 12:14] VITALS: BP 98/62; PULSE 95; TEMP 98.3
--- NOTE | 2021-08-26 13:32 | NUR ---
I called [facility]indy[facility] concerning preauthorization for Invanz 1 gram x 10 days. ICD R78.81, CPT [id number]. I spoke with Yang PEREIRA for drug. Case #[id number]. .
--- NOTE | 2021-08-26 14:34 | NUR ---
ID is recommening IV Invanz daily for 7 more days. HECTOR contacted the patient's daughter, Kalpana, to follow up on where to obtain the IV antibiotics. Kalpana is interested in the patient going to the [facility] to receive the antibiotics. HECTOR notified community organization worker for auth. HECTOR faxed the patient's orders and the script to Jessie in the Express Unit. The manager intensive care unit secured an appointment at 0830 in the Express Unit. HECTOR met with the patient and Kalpana and updated them on the time. They were in agreement to the plan. HECTOR presented and read the IM form outloud to the patient's daughter, Kalpana. Kalpana verbalized understanding and signed the form. HECTOR provided her with a copy. The patient is to discharge back home with her daughter today, 08/26, and palliative retirement health services from [facility]. HECTOR notified Yue at [facility]. Yue reports that they do not needs new orders. She states that they can just do a resumption of care. No additional needs at this time.
--- NOTE | 2021-08-26 14:58 | NUR ---
Discharge paperwork and instructions reviewed with patient, IV to LFA dc'd by [facility] earlier today. Leaving with PICC line to [facility].
--- NOTE | 2021-08-26 15:44 | NUR ---
Pt wheeled out of facility at this time.
== END 2021-08-26 15:44 | disposition home health service (06) | DRG 872 ==
LOC: COL.ER 11:12 → MEDICAL 15:34
PROVIDERS: Physician Assistant; Student in an Organized Health Care Education/Training Program; ADMIT Internal Medicine
PROC: 02HV33Z Insertion of Infusion Device into Superior Vena Cava, Percutaneous Approach (ICD-10-PCS; principal; 2021-08-26)
DX: A41.1 Sepsis due to other specified staphylococcus (principal); D61.818 Other pancytopenia; N39.0 Urinary tract infection, site not specified; D46.9 Myelodysplastic syndrome, unspecified; I10 Essential (primary) hypertension; K21.9 Gastro-esophageal reflux disease without esophagitis; M10.9 Gout, unspecified; F32.A Depression, unspecified; E11.40 Type 2 diabetes mellitus with diabetic neuropathy, unspecified; D53.9 Nutritional anemia, unspecified; D64.81 Anemia due to antineoplastic chemotherapy; G89.29 Other chronic pain; B96.20 Unspecified Escherichia coli [E. coli] as the cause of diseases classified elsewhere; B96.1 Klebsiella pneumoniae [K. pneumoniae] as the cause of diseases classified elsewhere; R31.9 Hematuria, unspecified; Z79.4 Long term (current) use of insulin
CPT/HCPCS: 99232-AI; 99233-AI; 99239; C1751; J0692; J1335; J1815; J2185; J2270; J3370; J3475; J7030; J7050; P9035; P9040; Q9967

== ENCOUNTER 2021-09-29 14:29 | Emergency (ER) | payer MEDICARE, OTHER ==
[~2021-09-29] VITALS: Ht 157.5 cm; Wt 61.4 kg
[~2021-09-29 14:29] MED LIST changes: +FENTANYL 12MCG TD; +INVANZ INJ1 G/VIAL IV
[2021-09-29 15:31] LABS: MEAN CELL VOLUME 82 fl (80.0-100.0); MEAN CORPUSCULAR HGB CONC 34 g/dl (33.0-37.0); RED BLOOD COUNT 3.08 M/mm3 (4.10-5.30)
[2021-09-29 15:35] LABS: HEMATOCRIT 25.3 % (37.0-47.0); HEMOGLOBIN 8.7 g/dl (12.5-16.0); MEAN CORPUSCULAR HEMOGLOBIN 28 pg (27.0-31.0)
[2021-09-29 15:37] LABS: PLATELET COUNT 1 K/mm3 (130-400)
[2021-09-29 15:48] LABS: ALBUMIN 3.3 gm/dL (3.4-4.8); BILIRUBIN,TOTAL 1.3 mg/dL (0.2-1.2); CREATININE, serum 0.72 mg/dL (0.57-1.11); POTASSIUM 3.5 mmol/L (3.5-4.5); TOTAL PROTEIN 7.4 gm/dL (6.2-8.1)
[2021-09-29 16:10] LABS: LYMPHOCYTE 88 % (20.0-51.0); NEUTROPHILS 12 % (42.0-75.2); PLATELET ESTIMATE DECREASED (NORMAL)
[2021-09-29 17:09] VITALS: BP 116/82; PULSE 91; TEMP 98.8
[2021-09-29 17:29] VITALS: BP 116/81; PULSE 90; TEMP 98.8
[2021-09-29 17:55] VITALS: BP 101/69; PULSE 80; TEMP 98.8
[2021-09-29 18:10] VITALS: BP 113/80; PULSE 93; TEMP 98.4
[2021-09-29 18:25] VITALS: BP 113/80; PULSE 93; TEMP 98.4
[2021-10-06] MEDS ORDERED: LEVAQUIN 5500 MG/TA1 PO (12:25)
[2021-10-06] MEDS ORDERED: ZOVIRAX400 MG PO (12:26)
== END 2021-09-29 18:31 | disposition home or self-care (01) ==
LOC: COL.ER 14:29
PROVIDERS: Family Medicine
DX: E87.2 Acidosis (principal); D61.818 Other pancytopenia
CPT/HCPCS: P9035

== ENCOUNTER 2021-10-24 13:52 | Outpatient (RCR) | payer MEDICARE, OTHER ==
[2021-08-27 10:00] VITALS: BP 115/84; PULSE 102; TEMP 98.7
[2021-08-28] VITALS (8 sets, daily range): BP systolic 95–110; BP diastolic 62–82; PULSE 83–99; TEMP 97.8–98.5
[2021-08-28 09:58] LABS: MEAN CELL VOLUME 85 fl (80.0-100.0); MEAN CORPUSCULAR HGB CONC 34 g/dl (33.0-37.0); MEAN PLATELET VOLUME 10.1 fl (7.4-10.4); RED BLOOD COUNT 2.55 M/mm3 (4.10-5.30); REDCELL DISTRIBUTION WIDTH-CV 13.2 % (11.5-14.5)
[2021-08-28 10:11] LABS: HEMATOCRIT 21.7 % (37.0-47.0); HEMOGLOBIN 7.3 g/dl (12.5-16.0); MEAN CORPUSCULAR HEMOGLOBIN 29 pg (27.0-31.0); PLATELET COUNT 11 K/mm3 (130-400)
[2021-08-28 12:29] LABS: LYMPHOCYTE 100 % (20.0-51.0); OVALOCYTES 1+; PLATELET ESTIMATE DECREASED (NORMAL)
[2021-08-29] VITALS (8 sets, daily range): BP systolic 88–108; BP diastolic 56–68; PULSE 79–94; TEMP 98–98.3
--- NOTE | 2021-08-29 15:05 | NUR ---
It was discovered that normal saline had been infusing instead of the platelets. We hung another 250 ml, restarted the plateletts with RN staying in room for the first 15 minutes, restarted the vital signs. Checked to make sure platelets would be infused within the 4 hour window.
--- NOTE | 2021-08-29 16:55 | NUR ---
Blood complete, PICC line flushed with 20 ml NS, patient assisted to wheel chair, escorted to front door, assisted with help of her daughter to get into car.
[2021-08-30 08:57] VITALS: BP 105/76; PULSE 90; TEMP 98
[2021-08-31 08:09] VITALS: BP 104/70; PULSE 95; TEMP 98.9
[2021-09-01 08:52] VITALS: BP 99/66; PULSE 102; TEMP 99
[2021-09-02] VITALS (18 sets, daily range): BP systolic 92–131; BP diastolic 60–87; PULSE 88–104; TEMP 97.9–99.3
[2021-09-02 10:30] LABS: MEAN CELL VOLUME 83 fl (80.0-100.0); MEAN CORPUSCULAR HGB CONC 34 g/dl (33.0-37.0); RED BLOOD COUNT 2.68 M/mm3 (4.10-5.30); REDCELL DISTRIBUTION WIDTH-CV 13.2 % (11.5-14.5)
[2021-09-02 10:32] LABS: HEMATOCRIT 22.2 % (37.0-47.0); HEMOGLOBIN 7.5 g/dl (12.5-16.0); MEAN CORPUSCULAR HEMOGLOBIN 28 pg (27.0-31.0); PLATELET COUNT 2 K/mm3 (130-400)
[2021-09-02 11:12] LABS: ANISOCYTOSIS 1+; BAND 4 % (0-10); HYPOCHROMIA 2+; LYMPHOCYTE 60 % (20.0-51.0); NEUTROPHILS 12 % (42.0-75.2); PLATELET ESTIMATE DECREASED (NORMAL)
[2021-09-02 11:13] LABS: OVALOCYTES 1+
--- NOTE | 2021-09-02 12:15 | NUR ---
pt moved to eu 10 to start platelet/blood transfusions, rests in bed, no changes in assessment
--- NOTE | 2021-09-02 19:10 | NUR ---
transfusion completed, picc flushed, pt discharged via w/c to car with daughter
[2021-09-04 11:08] LABS: MEAN CELL VOLUME 83 fl (80.0-100.0); MEAN CORPUSCULAR HGB CONC 34 g/dl (33.0-37.0); MEAN PLATELET VOLUME 8.9 fl (7.4-10.4); RED BLOOD COUNT 3.34 M/mm3 (4.10-5.30); REDCELL DISTRIBUTION WIDTH-CV 13.5 % (11.5-14.5)
[2021-09-04 11:13] LABS: HEMATOCRIT 27.8 % (37.0-47.0); HEMOGLOBIN 9.5 g/dl (12.5-16.0); MEAN CORPUSCULAR HEMOGLOBIN 28 pg (27.0-31.0); PLATELET COUNT 23 K/mm3 (130-400)
[2021-09-04 11:35] VITALS: BP 106/74; PULSE 106; TEMP 98.3
[2021-09-04 12:04] LABS: LYMPHOCYTE 80 % (20.0-51.0); NEUTROPHILS 12 % (42.0-75.2); PLATELET ESTIMATE DECREASED (NORMAL)
[2021-09-04 12:05] LABS: ANISOCYTOSIS 1+
[2021-09-09 11:25] LABS: MEAN CELL VOLUME 85 fl (80.0-100.0); MEAN CORPUSCULAR HGB CONC 34 g/dl (33.0-37.0); REDCELL DISTRIBUTION WIDTH-CV 13.2 % (11.5-14.5)
[2021-09-09 11:27] LABS: HEMATOCRIT 27.1 % (37.0-47.0); HEMOGLOBIN 9.1 g/dl (12.5-16.0); MEAN CORPUSCULAR HEMOGLOBIN 28 pg (27.0-31.0); PLATELET COUNT 2 K/mm3 (130-400)
[2021-09-09 11:41] VITALS: BP 101/70; PULSE 73; TEMP 98.8
[2021-09-09 11:41] LABS: EOSINOPHIL 3 % (0-4); LYMPHOCYTE 86 % (20.0-51.0); NEUTROPHILS 9 % (42.0-75.2); PLATELET ESTIMATE DECREASED (NORMAL)
[2021-09-09 13:32] VITALS: BP 101/70; PULSE 103; TEMP 98.9
[2021-09-09 13:50] VITALS: BP 88/63; PULSE 98; TEMP 97.7
[2021-09-09 14:05] VITALS: BP 92/62; PULSE 98; TEMP 97.8
[2021-09-09 14:56] VITALS: BP 90/59; PULSE 99; TEMP 98.5
[2021-09-10 13:10] VITALS: BP 87/72; PULSE 106; TEMP 97.8
[2021-09-10 13:39] VITALS: BP 85/73; PULSE 103; TEMP 99
--- NOTE | 2021-09-10 13:47 | NUR ---
Report from Jamil Harris.
[2021-09-10 13:54] VITALS: BP 90/67; PULSE 100; TEMP 98.8
[2021-09-10 14:24] VITALS: BP 97/72; PULSE 87; TEMP 97.7
[2021-09-10 14:41] VITALS: BP 103/49; PULSE 91; TEMP 97
[2021-09-11 11:20] LABS: MEAN CELL VOLUME 85 fl (80.0-100.0); MEAN CORPUSCULAR HGB CONC 33 g/dl (33.0-37.0); MEAN PLATELET VOLUME 9.7 fl (7.4-10.4); RED BLOOD COUNT 2.98 M/mm3 (4.10-5.30); REDCELL DISTRIBUTION WIDTH-CV 13.5 % (11.5-14.5)
[2021-09-11 11:23] LABS: HEMATOCRIT 25.3 % (37.0-47.0); HEMOGLOBIN 8.3 g/dl (12.5-16.0); MEAN CORPUSCULAR HEMOGLOBIN 28 pg (27.0-31.0)
[2021-09-11 11:25] LABS: PLATELET COUNT 48 K/mm3 (130-400)
[2021-09-11 11:31] VITALS: BP 91/61; PULSE 98; TEMP 98.9
[2021-09-11 11:48] LABS: BASOPHIL 1 % (0-2); EOSINOPHIL 3 % (0-4); HYPOCHROMIA 1+; LYMPHOCYTE 81 % (20.0-51.0); NEUTROPHILS 10 % (42.0-75.2); PLATELET ESTIMATE DECREASED (NORMAL)
[2021-09-16] VITALS (12 sets, daily range): BP systolic 94–110; BP diastolic 59–76; PULSE 87–96; TEMP 97.6–99.1
[2021-09-16 11:34] LABS: MEAN CELL VOLUME 84 fl (80.0-100.0); MEAN CORPUSCULAR HGB CONC 33 g/dl (33.0-37.0); MEAN PLATELET VOLUME 9.3 fl (7.4-10.4); RED BLOOD COUNT 2.45 M/mm3 (4.10-5.30); REDCELL DISTRIBUTION WIDTH-CV 13.6 % (11.5-14.5)
[2021-09-16 11:37] LABS: HEMATOCRIT 20.6 % (37.0-47.0); HEMOGLOBIN 6.8 g/dl (12.5-16.0); MEAN CORPUSCULAR HEMOGLOBIN 28 pg (27.0-31.0)
[2021-09-16 11:38] LABS: PLATELET COUNT 2 K/mm3 (130-400)
[2021-09-16 12:14] LABS: EOSINOPHIL 4 % (0-4); LYMPHOCYTE 90 % (20.0-51.0); NEUTROPHILS 6 % (42.0-75.2)
[2021-09-16 12:20] LABS: ANISOCYTOSIS 1+; MICROCYTOSIS 1+
[2021-09-16 12:21] LABS: PLATELET ESTIMATE DECREASED (NORMAL)
[2021-09-17] VITALS (8 sets, daily range): BP systolic 109–123; BP diastolic 63–86; PULSE 62–91; TEMP 98–98.6
[2021-09-19 13:22] LABS: MEAN CELL VOLUME 82 fl (80.0-100.0); MEAN CORPUSCULAR HGB CONC 34 g/dl (33.0-37.0); MEAN PLATELET VOLUME 11.9 fl (7.4-10.4); RED BLOOD COUNT 3.28 M/mm3 (4.10-5.30); REDCELL DISTRIBUTION WIDTH-CV 13.8 % (11.5-14.5)
[2021-09-19 13:23] VITALS: BP 110/58; PULSE 68; TEMP 98.7
[2021-09-19 13:28] LABS: HEMATOCRIT 26.8 % (37.0-47.0); HEMOGLOBIN 9.2 g/dl (12.5-16.0); MEAN CORPUSCULAR HEMOGLOBIN 28 pg (27.0-31.0); PLATELET COUNT 8 K/mm3 (130-400)
[2021-09-19 14:05] LABS: BAND 2 % (0-10); LYMPHOCYTE 94 % (20.0-51.0); MICROCYTOSIS 1+; NEUTROPHILS 4 % (42.0-75.2); PLATELET ESTIMATE DECREASED (NORMAL)
[2021-09-20 13:06] VITALS: BP 107/74; PULSE 90; TEMP 97.8
[2021-09-20 14:06] VITALS: BP 107/74; PULSE 90; TEMP 97.8
[2021-09-20 14:27] VITALS: BP 121/81; PULSE 91; TEMP 98
[2021-09-20 14:45] VITALS: BP 111/69; PULSE 81; TEMP 98
[2021-09-20 15:51] VITALS: BP 112/59; PULSE 78; TEMP 98.4
--- NOTE | 2021-09-20 16:00 | NUR ---
Patient tolerated platlet transfusion well without any complications, vital signs remained stable throughout and patient had no adverse reactions, PICC line flushed prior to discharge, I escorted her out to her vehicle
[2021-09-23 11:11] VITALS: BP 130/79; PULSE 94; TEMP 98.3
[2021-09-23 11:12] LABS: MEAN CELL VOLUME 81 fl (80.0-100.0); MEAN CORPUSCULAR HGB CONC 35 g/dl (33.0-37.0); RED BLOOD COUNT 2.83 M/mm3 (4.10-5.30); REDCELL DISTRIBUTION WIDTH-CV 13.6 % (11.5-14.5)
[2021-09-23 11:15] LABS: HEMATOCRIT 22.9 % (37.0-47.0); HEMOGLOBIN 7.9 g/dl (12.5-16.0); MEAN CORPUSCULAR HEMOGLOBIN 28 pg (27.0-31.0)
[2021-09-23 11:16] LABS: PLATELET COUNT 3 K/mm3 (130-400)
[2021-09-23 11:39] LABS: BAND 1 % (0-10); EOSINOPHIL 1 % (0-4); LYMPHOCYTE 90 % (20.0-51.0); NEUTROPHILS 7 % (42.0-75.2); PLATELET ESTIMATE DECREASED (NORMAL)
[2021-09-23 13:59] VITALS: BP 114/74; PULSE 83; TEMP 97.4
[2021-09-23 14:14] VITALS: BP 136/67; PULSE 84; TEMP 98.2
[2021-09-23 14:29] VITALS: BP 110/70; PULSE 83; TEMP 98
[2021-09-23 14:59] VITALS: BP 113/71; PULSE 86; TEMP 97.3
[2021-09-23 15:40] VITALS: BP 104/80; PULSE 90; TEMP 98.5
[2021-09-24] VITALS (13 sets, daily range): BP systolic 87–129; BP diastolic 57–83; PULSE 79–90; TEMP 97.9–98.6
--- NOTE | 2021-09-24 18:00 | NUR ---
report to Jamil Bauer
[2021-09-25 10:40] VITALS: BP 120/77; PULSE 73; TEMP 98.4
[2021-09-25 10:51] LABS: MEAN CELL VOLUME 81 fl (80.0-100.0); MEAN CORPUSCULAR HGB CONC 35 g/dl (33.0-37.0); MEAN PLATELET VOLUME 10.1 fl (7.4-10.4); RED BLOOD COUNT 3.57 M/mm3 (4.10-5.30); REDCELL DISTRIBUTION WIDTH-CV 13.1 % (11.5-14.5)
[2021-09-25 11:17] LABS: MEAN CORPUSCULAR HEMOGLOBIN 29 pg (27.0-31.0)
[2021-09-25 11:20] LABS: HEMOGLOBIN 10.2 g/dl (12.5-16.0); PLATELET COUNT 22 K/mm3 (130-400)
[2021-09-25 11:41] LABS: LYMPHOCYTE 88 % (20.0-51.0); NEUTROPHILS 6 % (42.0-75.2); PLATELET ESTIMATE DECREASED (NORMAL)
[2021-09-25 11:44] LABS: TARGET CELLS 1+
[2021-09-30 11:15] VITALS: BP 107/72; PULSE 108; TEMP 97.7
[2021-09-30 11:35] LABS: MEAN CELL VOLUME 81 fl (80.0-100.0); MEAN CORPUSCULAR HGB CONC 35 g/dl (33.0-37.0); RED BLOOD COUNT 3.06 M/mm3 (4.10-5.30)
[2021-09-30 11:40] LABS: HEMATOCRIT 24.7 % (37.0-47.0); HEMOGLOBIN 8.7 g/dl (12.5-16.0); MEAN CORPUSCULAR HEMOGLOBIN 28 pg (27.0-31.0)
[2021-09-30 11:41] LABS: PLATELET COUNT 3 K/mm3 (130-400)
[2021-09-30 12:13] LABS: BAND 1 % (0-10); EOSINOPHIL 4 % (0-4); LYMPHOCYTE 81 % (20.0-51.0); NEUTROPHILS 10 % (42.0-75.2); PLATELET ESTIMATE DECREASED (NORMAL)
[2021-10-01] VITALS (10 sets, daily range): BP systolic 78–108; BP diastolic 54–74; PULSE 74–87; TEMP 97.5–98.2
[2021-10-02 11:22] LABS: MEAN CELL VOLUME 81 fl (80.0-100.0); MEAN CORPUSCULAR HGB CONC 35 g/dl (33.0-37.0); MEAN PLATELET VOLUME 10.3 fl (7.4-10.4); RED BLOOD COUNT 2.95 M/mm3 (4.10-5.30); REDCELL DISTRIBUTION WIDTH-CV 13.2 % (11.5-14.5)
[2021-10-02 11:24] LABS: HEMOGLOBIN 8.3 g/dl (12.5-16.0); MEAN CORPUSCULAR HEMOGLOBIN 28 pg (27.0-31.0)
[2021-10-02 11:25] LABS: PLATELET COUNT 40 K/mm3 (130-400)
[2021-10-02 11:28] VITALS: BP 99/66; PULSE 99; TEMP 97.7
[2021-10-02 11:58] LABS: EOSINOPHIL 4 % (0-4); LYMPHOCYTE 80 % (20.0-51.0); NEUTROPHILS 16 % (42.0-75.2); PLATELET ESTIMATE DECREASED (NORMAL)
[2021-10-06 11:14] LABS: MEAN CELL VOLUME 81 fl (80.0-100.0); MEAN CORPUSCULAR HGB CONC 35 g/dl (33.0-37.0); MEAN PLATELET VOLUME 9.8 fl (7.4-10.4); RED BLOOD COUNT 2.42 M/mm3 (4.10-5.30)
[2021-10-06 11:17] LABS: HEMATOCRIT 19.7 % (37.0-47.0); HEMOGLOBIN 6.8 g/dl (12.5-16.0); MEAN CORPUSCULAR HEMOGLOBIN 28 pg (27.0-31.0); PLATELET COUNT 2 K/mm3 (130-400)
[2021-10-06 11:30] VITALS: BP 87/56; PULSE 94; TEMP 97.9
--- NOTE | 2021-10-06 11:30 | NUR ---
RESULTS FROM LAB WORK CALLED TO NURSE, UNABLE TO REACH DR OFFICE DUE TO PHONE LINES DOWN/FAX TILL 1220. RESULTS THEN TOLD TO YVAN, NEW ORDERS RECIEVED FROM FAX AND CALLED FROM OFFICE FORM YVAN. BLOOD BAND WILL ORDER IRRADIATED BAGS. PT DISCHARGED VIA W/C TO CAR AND WILL RETURN TOMORROW AT 1300 FOR INFUSIONS. INSTRUCTED PT TO GO TO ER IF ANY SIGNS OF BLEEDING DUE TO PLATELET SO LOW.
[2021-10-06 11:57] LABS: BAND 8 % (0-10); LYMPHOCYTE 64 % (20.0-51.0); NEUTROPHILS 28 % (42.0-75.2); PLATELET ESTIMATE DECREASED (NORMAL)
[2021-10-07] VITALS (18 sets, daily range): BP systolic 94–137; BP diastolic 61–91; PULSE 76–102; TEMP 97.8–98.8
[2021-10-08 12:11] VITALS: BP 106/71; PULSE 92; TEMP 98.7
[2021-10-08 12:13] LABS: MEAN CELL VOLUME 81 fl (80.0-100.0); MEAN CORPUSCULAR HGB CONC 36 g/dl (33.0-37.0); MEAN PLATELET VOLUME 9.2 fl (7.4-10.4); RED BLOOD COUNT 3.13 M/mm3 (4.10-5.30)
[2021-10-08 13:13] LABS: HEMATOCRIT 25.3 % (37.0-47.0); MEAN CORPUSCULAR HEMOGLOBIN 29 pg (27-31); PLATELET COUNT 40 K/mm3 (130-400)
[2021-10-08 13:31] LABS: EOSINOPHIL 2 % (0-4); LYMPHOCYTE 84 % (20.0-51.0); METAMYELOCYTE 2 % (0-0); NEUTROPHILS 6 % (42.0-75.2)
[2021-10-08 13:32] LABS: PLATELET ESTIMATE DECREASED (NORMAL)
[2021-10-10 11:06] LABS: MEAN CELL VOLUME 81 fl (80.0-100.0); MEAN CORPUSCULAR HGB CONC 35 g/dl (33.0-37.0); MEAN PLATELET VOLUME 8.9 fl (7.4-10.4); RED BLOOD COUNT 2.99 M/mm3 (4.10-5.30); REDCELL DISTRIBUTION WIDTH-CV 12.9 % (11.5-14.5)
[2021-10-10 11:40] LABS: ANISOCYTOSIS 1+; BAND 8 % (0-10); EOSINOPHIL 2 % (0-4); LYMPHOCYTE 78 % (20.0-51.0); NEUTROPHILS 12 % (42.0-75.2); PLATELET ESTIMATE DECREASED (NORMAL)
[2021-10-10 11:42] LABS: HEMATOCRIT 24.3 % (37.0-47.0); HEMOGLOBIN 8.6 g/dl (12.5-16.0); MEAN CORPUSCULAR HEMOGLOBIN 29 pg (27-31)
[2021-10-10 11:43] LABS: PLATELET COUNT 15 K/mm3 (130-400)
[2021-10-13 11:38] VITALS: BP 96/67; PULSE 103; TEMP 97.6
[2021-10-13 12:12] LABS: MEAN CELL VOLUME 82 fl (80.0-100.0); MEAN CORPUSCULAR HGB CONC 36 g/dl (33.0-37.0); MEAN PLATELET VOLUME 8.3 fl (7.4-10.4); RED BLOOD COUNT 3.03 M/mm3 (4.10-5.30); REDCELL DISTRIBUTION WIDTH-CV 12.9 % (11.5-14.5)
[2021-10-13 12:13] LABS: HEMATOCRIT 24.7 % (37.0-47.0); HEMOGLOBIN 8.8 g/dl (12.5-16.0); MEAN CORPUSCULAR HEMOGLOBIN 29 pg (27-31)
[2021-10-13 12:14] LABS: PLATELET COUNT 2 K/mm3 (130-400)
[2021-10-13 13:05] LABS: EOSINOPHIL 4 % (0-4); LYMPHOCYTE 79 % (20.0-51.0); NEUTROPHILS 15 % (42.0-75.2); PLATELET ESTIMATE DECREASED (NORMAL)
[2021-10-13 13:45] VITALS: BP 110/72; PULSE 98; TEMP 97.7
[2021-10-13 14:07] VITALS: BP 100/79; PULSE 91; TEMP 98.3
[2021-10-13 14:22] VITALS: BP 95/72; PULSE 93; TEMP 98.1
[2021-10-13 14:52] VITALS: BP 101/70; PULSE 94; TEMP 98.6
[2021-10-13 15:34] VITALS: BP 111/66; PULSE 93; TEMP 98.1
[2021-10-14 12:51] VITALS: BP 100/75; PULSE 91; TEMP 98.4
[2021-10-14 13:07] VITALS: BP 106/71; PULSE 96; TEMP 98
[2021-10-14 13:22] VITALS: BP 104/73; PULSE 94; TEMP 98.8
[2021-10-14 13:52] VITALS: BP 109/68; PULSE 84; TEMP 98.7
[2021-10-14 14:15] VITALS: BP 100/67; PULSE 88; TEMP 98.9
[2021-10-15 11:40] LABS: MEAN CELL VOLUME 80 fl (80.0-100.0); MEAN CORPUSCULAR HGB CONC 36 g/dl (33.0-37.0); MEAN PLATELET VOLUME 9.7 fl (7.4-10.4); REDCELL DISTRIBUTION WIDTH-CV 12.7 % (11.5-14.5)
[2021-10-15 11:49] LABS: HEMATOCRIT 20.7 % (37.0-47.0); HEMOGLOBIN 7.5 g/dl (12.5-16.0); MEAN CORPUSCULAR HEMOGLOBIN 29 pg (27-31)
[2021-10-15 11:52] LABS: PLATELET COUNT 21 K/mm3 (130-400)
[2021-10-15 11:57] LABS: EOSINOPHIL 2 % (0-4); LYMPHOCYTE 88 % (20.0-51.0); NEUTROPHILS 10 % (42.0-75.2); PLATELET ESTIMATE DECREASED (NORMAL)
[2021-10-15 11:58] LABS: MICROCYTOSIS 1+
[2021-10-15 18:44] VITALS: BP 98/64; PULSE 94; TEMP 98.4
[2021-10-16] VITALS (10 sets, daily range): BP systolic 99–128; BP diastolic 68–82; PULSE 82–88; TEMP 98.1–98.5
[2021-10-17 09:14] LABS: MEAN CELL VOLUME 81 fl (80.0-100.0); MEAN CORPUSCULAR HGB CONC 36 g/dl (33.0-37.0); MEAN PLATELET VOLUME 9.5 fl (7.4-10.4); RED BLOOD COUNT 3.36 M/mm3 (4.10-5.30); REDCELL DISTRIBUTION WIDTH-CV 12.4 % (11.5-14.5)
[2021-10-17 09:18] LABS: HEMATOCRIT 27.3 % (37.0-47.0); HEMOGLOBIN 9.9 g/dl (12.5-16.0); MEAN CORPUSCULAR HEMOGLOBIN 29 pg (27-31)
[2021-10-17 09:19] LABS: PLATELET COUNT 6 K/mm3 (130-400)
[2021-10-17 10:22] VITALS: BP 96/67; PULSE 85; TEMP 98.9
[2021-10-17 10:40] VITALS: BP 104/70; PULSE 84; TEMP 98.1
[2021-10-17 10:55] LABS: LYMPHOCYTE 86 % (20.0-51.0); METAMYELOCYTE 2 % (0-0); NEUTROPHILS 12 % (42.0-75.2)
[2021-10-17 10:56] LABS: PLATELET ESTIMATE DECREASED (NORMAL)
[2021-10-17 11:00] VITALS: BP 106/68; PULSE 82; TEMP 98.1
[2021-10-17 11:30] VITALS: BP 104/73; PULSE 82; TEMP 98.1
[2021-10-17 11:42] VITALS: BP 106/68; PULSE 84; TEMP 98.1
[2021-10-20 08:36] VITALS: BP 94/65; PULSE 84; TEMP 97.8
[2021-10-20 08:47] LABS: MEAN CELL VOLUME 82 fl (80.0-100.0); MEAN CORPUSCULAR HGB CONC 36 g/dl (33.0-37.0); MEAN PLATELET VOLUME 8.6 fl (7.4-10.4); RED BLOOD COUNT 3.36 M/mm3 (4.10-5.30); REDCELL DISTRIBUTION WIDTH-CV 12.3 % (11.5-14.5)
[2021-10-20 08:54] LABS: HEMATOCRIT 27.4 % (37.0-47.0); HEMOGLOBIN 9.9 g/dl (12.5-16.0); MEAN CORPUSCULAR HEMOGLOBIN 29 pg (27-31); PLATELET COUNT 4 K/mm3 (130-400)
[2021-10-20 09:15] LABS: BAND 1 % (0-10); EOSINOPHIL 3 % (0-4); LYMPHOCYTE 89 % (20.0-51.0); NEUTROPHILS 7 % (42.0-75.2); PLATELET ESTIMATE DECREASED (NORMAL)
[2021-10-20 10:50] VITALS: BP 102/73; PULSE 85; TEMP 97.4
[2021-10-20 11:09] VITALS: BP 106/83; PULSE 84; TEMP 97.9
[2021-10-20 11:24] VITALS: BP 114/81; PULSE 77; TEMP 97.4
[2021-10-20 11:54] VITALS: BP 117/76; PULSE 75; TEMP 98.1
[2021-10-20 12:26] VITALS: BP 104/78; PULSE 82; TEMP 98.3
[2021-10-21 13:15] VITALS: BP 107/74; PULSE 94; TEMP 98.2
[2021-10-21 13:33] VITALS: BP 105/75; PULSE 92; TEMP 98.4
[2021-10-21 13:48] VITALS: BP 104/78; PULSE 86; TEMP 98.4
[2021-10-21 14:18] VITALS: BP 113/73; PULSE 87; TEMP 98.4
[2021-10-21 14:31] VITALS: BP 119/78; PULSE 92; TEMP 98.4
[2021-10-22 10:52] VITALS: BP 112/73; PULSE 88; TEMP 97.5
[2021-10-22 11:12] LABS: MEAN CELL VOLUME 82 fl (80.0-100.0); MEAN CORPUSCULAR HGB CONC 36 g/dl (33.0-37.0); MEAN PLATELET VOLUME 9.4 fl (7.4-10.4); RED BLOOD COUNT 3.18 M/mm3 (4.10-5.30); REDCELL DISTRIBUTION WIDTH-CV 12.4 % (11.5-14.5)
[2021-10-22 11:13] LABS: HEMATOCRIT 26.1 % (37.0-47.0); HEMOGLOBIN 9.3 g/dl (12.5-16.0); MEAN CORPUSCULAR HEMOGLOBIN 29 pg (27-31); PLATELET COUNT 20 K/mm3 (130-400)
[2021-10-22 12:25] LABS: LYMPHOCYTE 82 % (20.0-51.0); NEUTROPHILS 14 % (42.0-75.2)
[2021-10-22 12:26] LABS: PLATELET ESTIMATE DECREASED (NORMAL)
[2021-10-23 08:49] LABS: MEAN CELL VOLUME 82 fl (80.0-100.0); MEAN CORPUSCULAR HGB CONC 36 g/dl (33.0-37.0); RED BLOOD COUNT 2.86 M/mm3 (4.10-5.30); REDCELL DISTRIBUTION WIDTH-CV 12.2 % (11.5-14.5)
[2021-10-23 08:53] LABS: HEMATOCRIT 23.3 % (37.0-47.0); HEMOGLOBIN 8.4 g/dl (12.5-16.0); MEAN CORPUSCULAR HEMOGLOBIN 29 pg (27-31); PLATELET COUNT 15 K/mm3 (130-400)
[2021-10-23 09:08] VITALS: BP 117/82; PULSE 82; TEMP 98.4
[2021-10-23 09:52] LABS: LYMPHOCYTE 92 % (20.0-51.0); NEUTROPHILS 8 % (42.0-75.2); PLATELET ESTIMATE DECREASED (NORMAL)
[2021-10-23 09:58] VITALS: BP 105/70; PULSE 86; TEMP 98.3
[2021-10-23 10:17] VITALS: BP 100/69; PULSE 83; TEMP 98.4
[2021-10-23 10:32] VITALS: BP 108/72; PULSE 72; TEMP 98.4
[2021-10-23 11:02] VITALS: BP 104/73; PULSE 81; TEMP 98.9
[2021-10-23 11:20] VITALS: BP 122/81; PULSE 84; TEMP 98.7
[~2021-10-24] VITALS: Ht 157.5 cm; Wt 58.4 kg
[~2021-10-24 13:52] MED LIST changes: +LEVAQUIN 5500 MG/TA1 PO; +ZOVIRAX400 MG PO
[2021-10-24 15:11] VITALS: BP 102/61; PULSE 84; TEMP 98.5
[2021-10-24 15:27] VITALS: BP 110/61; PULSE 74; TEMP 99
[2021-10-24 15:44] VITALS: BP 107/65; PULSE 81; TEMP 99.2
[2021-10-24 16:26] VITALS: BP 105/60; PULSE 79; TEMP 99
[2021-10-24 16:39] VITALS: BP 102/62; PULSE 78; TEMP 98.8
[2021-11-17] MEDS ORDERED: COMPAZINE 110 MG/TAB PO (11:20)
[2021-12-01] MEDS ORDERED: FENTANYL 25 MCG TD (15:02)
== END 2021-10-24 17:00 | disposition home or self-care (01) ==
LOC: EUO 13:55 → MEDICAL 14:03 → EUO 16:44 → MEDICAL 16:44 → EUO 17:00
PROVIDERS: Internal Medicine; Internal Medicine Medical Oncology
DX: D69.6 Thrombocytopenia, unspecified (principal); D46.21 Refractory anemia with excess of blasts 1
CPT/HCPCS: OP; 86644; J1335; J7050; P9035; P9040

== ENCOUNTER 2021-12-12 11:08 | Emergency (ER) | payer MEDICARE, OTHER ==
[~2021-12-12] VITALS: Ht 157.5 cm; Wt 64.5 kg
[~2021-12-12 11:08] MED LIST changes: +COMPAZINE 110 MG/TAB PO; +FENTANYL 25 MCG TD
[2021-12-12 11:11] VITALS: TEMP 99.1
[2021-12-12 11:50] LABS: ALBUMIN 2.6 gm/dL (3.4-4.8); BILIRUBIN,TOTAL 3.1 mg/dL (0.2-1.2); CALCIUM 8.8 mg/dL (8.4-10.2); CREATININE, serum 0.86 mg/dL (0.57-1.11); POTASSIUM 3.5 mmol/L (3.5-4.5); TOTAL PROTEIN 6.8 gm/dL (6.2-8.1)
[2021-12-12 11:55] LABS: MEAN CELL VOLUME 82 fl (80.0-100.0); MEAN CORPUSCULAR HGB CONC 34 g/dl (33.0-37.0); MEAN PLATELET VOLUME 12.2 fl (7.4-10.4); RED BLOOD COUNT 2.34 M/mm3 (4.10-5.30)
[2021-12-12 12:24] LABS: HEMATOCRIT 19.2 % (37.0-47.0); HEMOGLOBIN 6.6 g/dl (12.5-16.0); MEAN CORPUSCULAR HEMOGLOBIN 28 pg (27-31); PLATELET COUNT 10 K/mm3 (130-400)
[2021-12-12 12:43] LABS: BAND 2 % (0-10); LYMPHOCYTE 84 % (20.0-51.0); NEUTROPHILS 12 % (42.0-75.2); OVALOCYTES 1+; PLATELET ESTIMATE DECREASED (NORMAL)
[2021-12-12] MEDS ORDERED: ZOFRAN ODT4 MG PO (12:53)
[2021-12-12] MEDS ORDERED: NORCO 325 MG-51 TAB PO (12:53)
[2021-12-12] MEDS ORDERED: SENOKOT S 50 MG1 TAB PO (12:55)
[2021-12-12 13:36] VITALS: BP 119/81; PULSE 102
== END 2021-12-12 13:45 | disposition home or self-care (01) ==
LOC: COL.ER 11:08
PROVIDERS: Personal Emergency Response Attendant
DX: D46.9 Myelodysplastic syndrome, unspecified (principal); E11.65 Type 2 diabetes mellitus with hyperglycemia; E86.0 Dehydration; I10 Essential (primary) hypertension; K21.9 Gastro-esophageal reflux disease without esophagitis; M10.9 Gout, unspecified; Z79.4 Long term (current) use of insulin; Z79.84 Long term (current) use of oral hypoglycemic drugs; Z79.899 Other long term (current) drug therapy
CPT/HCPCS: J7030